=== PATIENT | female | born 1970 | race Caucasian/White ===

== ENCOUNTER 2022-03-22 11:29 | Emergency (ER) | payer OTHER, SELFPAY ==
--- NOTE | ~2022-03-22 | XR_ITS ---
XR chest 2V 03/22/2022 12:07 Indication: Fever and cough Procedure: 2 view chest Comparison: 01/16/2013 Findings: Heart size normal. There is blunting of the right lateral costophrenic recess which may rep resent pleural thickening or small effusion. No focal air space disease, pulmonary edema, or suspecte d pneumothorax. There is a laparoscopic adjustable gastric band. Impression: 1: No acute cardiopulmonary disease. 2: Blunting right lateral costophrenic recess which may represent pleural thickening or less likely s mall effusion. Reviewed, dictated and finalized at location A. Impression: 1: No acute cardiopulmonary disease. 2: Blunting right lateral costophrenic recess which may represent pleural thick ening or less likely small effusion.
[2022-03-22 11:41] VITALS: BP 116/84; PULSE 90; RESP 24; TEMP 36.1; O2SAT 97
--- NOTE | 2022-03-22 11:51 | ED.URI ---
HPI - URI/Sore Throat General Chief Complaint: Upper Respiratory Infection Stated Complaint: cough,shortness of breath,fever Time Seen by Provider: 03/22/22 11:51 Source: patient and RN notes reviewed Mode of arrival: ambulatory Limitations: no limitations History of Present Illness HPI Narrative: 51-year-old female presented for complaint of cough and difficulty breathing for 4 days. She states she has minimal sinus pressure and congestion, at the onset she had subjective fever. She is not boosted for COVID. She denies sick contacts. She has taken NyQuil as needed for symptoms. MD elicited complaint: cough Related Data Home Medications Medication Instructions Recorded Confirmed pantoprazole 40 mg tablet,delayed 40 tablet PO DAILY 03/22/22 03/22/22 release paroxetine HCl 20 mg tablet 20 tablet PO DAILY 03/22/22 03/22/22 Allergies Allergy/AdvReac Type Severity Reaction Status Date / Time codeine AdvReac Nausea and Verified 03/22/22 11:44 Vomiting Review of Systems Review of Systems: CONSTITUTIONAL:Denies malaise, chills, sweats, fever EYES: Denies visual changes, redness, or discharge ENT: Denies sinus pain, otalgia, sore throat CARDIOVASCULAR: Denies chest pain, palpitations, edema RESPIRATORY: Reports cough dyspnea GASTROINTESTINAL: Denies abdominal pain, nausea, vomiting, diarrhea NEUROLOGIC: Denies headache Exam Narrative: GENERAL: Ill-appearing, nontoxic HEAD: Normocephalic EYES: conjunctivae clear ENT: Mucous membranes moist. TM pearly martini with dull light reflex bilaterally; no tragal tenderness. Oropharynx erythematous without lesions or exudate, no drooling, no hoarseness, no trismus, uvula midline. NECK: Supple. No lymphadenopathy CHEST: Clear to auscultation, breath sounds equal. No wheezing, rhonchi, rales, or stridor. No respiratory distress, speaks in full sentences. HEART: Regular rate and rhythm. No murmur heard. SKIN: Warm, dry, no rash. NEURO: Alert and oriented x3. PSYCH: Normal mood and affect Course Course Emergency Course: Patient is aware of diagnosis, understands and agrees to treatment plan. Anticipatory guidance given. Patient agrees to follow-up as directed and is aware of reasons to seek care at the emergency department. Portions of this record may have been created with voice recognition software Level of Care: Express Care Visit Vital Signs Vital signs: Vital Signs Temperature 97 F L 03/22/22 11:41 Pulse Rate 90 03/22/22 11:41 Respiratory Rate 24 H 03/22/22 11:41 Blood Pressure 116/84 03/22/22 11:41 Pulse Oximetry 97 03/22/22 11:41 Temperature 97 F L 03/22/22 11:41 Pulse Rate 90 03/22/22 11:41 Respiratory Rate 24 H 03/22/22 11:41 Blood Pressure 116/84 03/22/22 11:41 Pulse Oximetry 97 03/22/22 11:41 reviewed MDM - URI/Sore Throat MDM Narrative Medical decision making narrative: Xray reviewed with pt, advised on meds and supportive treatment. She is instructed to f/u with pcp. v/u. Differential Diagnosis Differential diagnosis: Likely upper respiratory infection, sinusitis and viral infection Imaging Data Radiologist's impression: Ordering Physician: Christelle Brandt APRN Date of Service: 03/22/22 Procedure(s): XR chest 2V Accession Number(s): [id number] cc: Christelle Brandt APRN; UNKNOWN,DOCTOR~ XR chest 2V 03/22/2022 12:07 Indication: Fever and cough Procedure: 2 view chest Comparison: 01/16/2013 Findings: Heart size normal. There is blunting of the right lateral costophrenic recess which may represent pleural thickening or small effusion. No focal air space disease, pulmonary edema, or suspected pneumothorax. There is a laparoscopic adjustable gastric band. Impression: 1: No acute cardiopulmonary disease. 2: Blunting right lateral costophrenic recess which may represent pleural thickening or less likely small effusion. Discharge Plan Discharge Clinical Impression: Bronchitis Pat
[2022-03-22 12:38] VITALS: BP 116/84
== END 2022-03-22 12:48 | disposition home or self-care (01) ==
PROVIDERS: Emergency Provider Nurse Practitioner Family
DX: J40 Bronchitis, not specified as acute or chronic (principal); Z20.822 Contact with and (suspected) exposure to COVID-19
CPT/HCPCS: 71046; 87426; 99203; C9803; G0463

== ENCOUNTER 2024-08-17 19:34 | Emergency (ER) | payer OTHER, SELFPAY ==
--- NOTE | ~2024-08-17 | XR_ITS ---
XR knee RT min 4V Ordering provider: Norma Juarez APRN History: . sudden onset L knee pain . Comparison: None. FINDINGS: BONES: No acute fracture or dislocation. JOINT SPACES: Normal. SOFT TISSUES: Normal. IMPRESSION: No acute osseous abnormality right knee. Reviewed, dictated and finalized at location A.
[2024-08-17 19:47] VITALS: BP 162/94; PULSE 68; RESP 14; TEMP 36.4; O2SAT 99
--- NOTE | 2024-08-17 20:07 | ED.LOWEXIN ---
HPI - Extremity Injury (Lower) General Chief Complaint: Extremity Injury, Lower Stated Complaint: R knee pain Time Seen by Provider: 08/17/24 20:00 Focused HPI: Patient is a 54-year-old female who presents to the ER with acute onset left knee pain. She reports no recent injury. Patient has a history right knee pain, but has never had problems with her L one. The left knee pain has caused her to develop a significantly limp. Patient denies any history of osteoarthritis in the joint. She reports she has been taking Tylenol at home to help control the pain. Patient denies calf pain, one-sided lower extremity swelling, or shortness of breath. GENERAL: Well-appearing, well-nourished, and in no acute distress. HEAD: Normocephalic, atraumatic. CHEST: Clear to auscultation. ?No respiratory distress. HEART: Regular rate and rhythm.? NEURO: ?Alert and oriented x3. Patient screened in triage and initial orders placed.? ?Additional care and disposition to be based upon?diagnostic testing and treatment. Related Data Allergies Allergy/AdvReac Type Severity Reaction Status Date / Time Sulfa (Sulfonamide AdvReac Unknown Unknown Verified 08/18/24 14:48 Antibiotics) codeine AdvReac Nausea and Verified 08/18/24 14:48 Vomiting PMFSH Surgical History Surgical History History of x3 Hx of laparoscopic gastric banding (~2009) Family History Family History Father Diabetes mellitus CAD (coronary artery disease) Mother Hypertension Bladder cancer Social History Social History Smoking status: Former smoker Tobacco type: cigarettes Alcohol intake: never Substance use: never Course Vital Signs Vital signs: Vital Signs Temperature 36.4 C 08/17/24 19:47 Pulse Rate 68 08/17/24 19:47 Respiratory Rate 14 08/17/24 19:47 Blood Pressure 162/94 H 08/17/24 19:47 Pulse Oximetry 99 08/17/24 19:47 Oxygen Delivery Room Air 08/17/24 19:47 Temperature 36.4 C 08/17/24 19:47 Pulse Rate 68 10/28/24 19:47 Respiratory Rate 14 08/17/24 19:47 Blood Pressure 162/94 H 08/17/24 19:47 Pulse Oximetry 99 08/17/24 19:47 Oxygen Delivery Room Air 08/17/24 19:47 Discharge Plan Discharge Clinical Impression: Acute pain of right knee Patient Disposition: Home, Self-Care Condition: Stable Instructions: Antibiotic Form, Knee Pain (ED) Prescriptions: New meloxicam 15 mg tablet 15 mg PO DAILY Qty: 14 0RF No Action pantoprazole 40 mg tablet,delayed release (DR/EC) See Rx Instructions .ROUTE .COMPLEX Qty: 30 1RF Dose Instruction: Take 1 tablet by mouth once daily Rx Instructions: Take 1 tablet by mouth once daily bupropion HCl 150 mg tablet extended release 24 hr 150 mg PO QAM Qty: 30 6RF paroxetine HCl 20 mg tablet 20 mg PO DAILY Qty: 90 0RF lisinopril 20 mg tablet 20 mg PO DAILY Qty: 90 0RF Follow-up/Referrals: Faisal Garcia MD [Primary Care Provider] - Time of Disposition: 22:10
--- NOTE | 2024-08-17 22:07 | ED.GENADULT ---
HPI - General Adult General Chief complaint: Extremity Injury, Lower Stated complaint: R knee pain Time Seen by Provider: 08/17/24 20:00 History of Present Illness HPI narrative: Patient 54-year-old female who presents emergency department with chief complaint of right-sided knee pain. Patient reports that since Saturday she has been having pain in the right knee the patient reports that it hurts whenever he tries to ambulate reports no trauma reports no redness states he may have some slight swelling to the knee the patient reports no prior injury to the neck Related Data Home Medications Medication Instructions Recorded Confirmed semaglutide (weight loss) 0.25 0.25 mg subcut WEEKLY 12/27/22 12/27/22 mg/0.5 mL subcutaneous pen injector (Ecato) Allergies Allergy/AdvReac Type Severity Reaction Status Date / Time Sulfa (Sulfonamide AdvReac Unknown Unknown Verified 08/17/24 19:34 Antibiotics) codeine AdvReac Nausea and Verified 08/17/24 19:34 Vomiting Review of Systems Review of Systems: A 10 system review of systems was completed on the patient and is negative except for what is stated in the HPI. Nursing and ancillary documentation was reviewed. [facility] Surgical History Surgical History History of x3 Hx of laparoscopic gastric banding (~2009) Family History Family History Father Diabetes mellitus CAD (coronary artery disease) Mother Hypertension Bladder cancer Social History Social History Smoking status: Former smoker Tobacco type: cigarettes Alcohol intake: never Substance use: never Exam Narrative: GENERAL: Well-appearing, well-nourished, and in no acute distress. HEAD: Normocephalic, atraumatic. EYES: PERRLA and EOMI. ENT: Nares clear, no rhinorrhea or epistaxis. Mucous membranes moist. NECK: Supple. CHEST: Clear to auscultation. No respiratory distress. HEART: Regular rate and rhythm. No murmur heard. Normal peripheral pulses. ABDOMEN: Soft, nontender, nondistended, normal active bowel sounds. EXTREMITIES: Normal range of motion mild tenderness to palpation right knee no redness no effusion no deformity. No edema. SKIN: Warm, dry, no rash. NEURO: No focal deficits. Alert and oriented x3. PSYCH: Normal mood and affect. Course Vital Signs Vital signs: Vital Signs Temperature 36.4 C 08/17/24 19:47 Pulse Rate 68 08/17/24 19:47 Respiratory Rate 14 08/17/24 19:47 Blood Pressure 162/94 H 08/17/24 19:47 Pulse Oximetry 99 08/17/24 19:47 Oxygen Delivery Room Air 08/17/24 19:47 Temperature 36.4 C 08/17/24 19:47 Pulse Rate 68 08/17/24 19:47 Respiratory Rate 14 08/17/24 19:47 Blood Pressure 162/94 H 08/17/24 19:47 Pulse Oximetry 99 08/17/24 19:47 Oxygen Delivery Room Air 08/17/24 19:47 Medical Decision Making MDM Narrative Medical decision making narrative: Differential diagnosis includes fracture, effusion, internal derangement Plain film x-rays of the right knee showed no abnormality The patient will be placed in an Dandre wrap and will be discharged follow-up with her primary care provider and started on anti-inflammatory. Vital Signs Vital Signs: Vital Signs Temperature 36.4 C 08/17/24 19:47 Pulse Rate 68 08/17/24 19:47 Respiratory Rate 14 08/17/24 19:47 Blood Pressure 162/94 H 08/17/24 19:47 Pulse Oximetry 99 08/17/24 19:47 Oxygen Delivery Room Air 08/17/24 19:47 Temperature 36.4 C 08/17/24 19:47 Pulse Rate 68 08/17/24 19:47 Respiratory Rate 14 08/17/24 19:47 Blood Pressure 162/94 H 08/17/24 19:47 Pulse Oximetry 99 08/17/24 19:47 Oxygen Delivery Room Air 08/17/24 19:47 Discharge Plan Discharge Clinical Impression: Acute pain of right knee Patient Disposition: Home, Self-Care Condition: Stable Instructions: Antibiotic Form, Knee Pain (ED) Prescriptions: New meloxicam 15 mg tablet 15 mg PO DAILY Qty: 14 0RF No Action benzonatate 200 mg capsule 200 mg PO TID PRN (Reason: cough) Qty: 20 0RF albuterol sulfate 90 mcg/actuation HFA aerosol inhaler 1 inh inhalation QID PRN (Reason: shortness of breath or wheezing) Qty: 8.5 0RF Wegovy 0.25 mg/0.5 mL pen injector 0.25 mg subcut WEEKLY Rx Instructions: administer weeks 1 through 4 of therapy bupropion HCl 150 mg tablet extended release 24 hr 150 mg PO QAM Qty: 30 6RF paroxetine HCl 20 mg tablet 20 mg PO DAILY Qty: 90 0RF pantoprazole 40 mg tablet,delayed release (DR/EC) See Rx Instructions .ROUTE .COMPLEX Qty: 40 0RF Dose Instruction: Take 1 tablet by mouth once daily Rx Instructions: Take 1 tablet by mouth once daily lisinopril 20 mg tablet 20 mg PO DAILY Qty: 90 0RF Follow-up/Referrals: Faisal Garcia MD [Primary Care Provider] - Time of Disposition: 22:10
== END 2024-08-17 22:30 | disposition home or self-care (01) ==
LOC: ANHED 22:09
PROVIDERS: Emergency Provider Emergency Medicine; PCP Family Medicine Adolescent Medicine
DX: M25.561 Pain in right knee (principal)
CPT/HCPCS: 73564; 99283

== ENCOUNTER 2024-12-14 18:33 | Emergency (ER) | payer OTHER, SELFPAY ==
[2024-12-14 19:06] VITALS: BP 124/74; PULSE 70; RESP 16; TEMP 36.4; O2SAT 100
--- OUTSIDE RECORDS SUMMARY | 2024-12-14 19:12 | XMS_ITS | Encounter Summary ---
Author Organization [facility] Address [address] [place] [address] Care Team Providers Care Communications Specialist Name Role Phone Camille Narvaez MD Unavailable [phone] Johnna Abbott MD Primary Care Provider Garret Curry MD Unavailable [phone] Jm Shafer MD Unavailable [phone] Reason for Visit * Reason Onset Date Comments Pre Authorization 11/30/2024 Katlyn hhr w/tramaine is gasatroplasty Encounter Details Date Type Department Care Team (Late st Contact Info) Description 11/30/2024 Telephone [facility] [id number] [place] [id number] [place] [id number] [address] Pre Authorization (Katlyn jerezr w/lynda gasatroplasty) Social History Tobacco Use Types Packs/Day Years Used Date Smoking Tobacco: Former Cigarettes Q uit: 08/1994 Passive Smoke Exposure: Current Smokeless Tobacco: Never Alcohol Use Standard Drinks/Week Comments Not Currently 0 (1 standard drink = 0.6 oz pur e alcohol) AUDIT-C Answer Date Recorded Q1: How often do you have a drink containing alcohol? Never 01/21/2024 Q2: How many drinks containi ng alcohol do you have on a typical day when you are drinking? Patient does not drink Q3: How often do you have si x or more drinks on one occasion? Never 01/21/2024 Overall Financial Resource Strain (CARDIA) Answe r Date Recorded How hard is it for you to pa y for the very basics like food, housing, medical care, and heating? Not hard at all 01/21/2024 PHQ-2 Answer Date Recorded Patient Health Questionnaire-2 Score 0 11/04/2024 [facility] [place] [facility] Occupat ional Health - Occupational Stress Questionnaire Answer Date Recorded Do you feel stress - tense, restless, nervous, or anxious, or unable to sleep at night because your mind is troubled all the time - these days? Not at all 01/21/2024 Hunger Vital Sign Answer Date Recorded Within the past 12 months, y ou worried that your food would run out before you got the money to buy more. Never true 01/21/20 24 Within the past 12 months, t he food you bought just didn't last and you didn't have money to get more. Never true 01/21/2024 PRAPARE - Transportation Answer Date Re corded In the past 12 months, has l ack of transportation kept you from medical appointments or from getting medications? No 11/2023 In the past 12 months, has l ack of transportation kept you from meetings, work, or from getting things needed for daily living? No 01/21/2024 Housing Stability Vital Sign Answer Russell e Recorded In the last 12 months, was t here a time when you were not able to pay the mortgage or rent on time? No 01/21/2024 In the last 12 months, how many places have you lived? 1 01/21/2024 In the last 12 months, was t here a time when you did not have a steady place to sleep or slept in a long term (including now)? 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 No 01/21/2024 Is person blind or have serious difficulty seein g? No 01/21/2024 Does person have serious dif ficulty walking/climbing stairs? No 01/21/2024 Does person have difficulty dressing/bathing? No 01/21/2024 Does person have difficulty doing errands alone? No 01/21/2024 Cognitive Status Response Date of Assessm ent Does person have difficulty concentrating/remembering/making decisions? No 01/21/2024 documented as of this encounter Miscellaneous Notes * Telephone Encounter - Delaney Mercado - 12/14/2024 7:04 AM CST Per [facility] online pending auth#[id number] for inpatient [id number] has been approved. Per Epic Chat from Dr. Curry patient is to be on 5 day liquid diet before Laparoscopic repair of hiatal hernia with fundoplication and lynda gastroplasty Sent to RN to schedule. HIATRY INSTRUCTOR * Telephone Encounter - Delaney Mercado - 11/30/2024 9:34 AM CST Dummy Sx Date : 12/31/24 Prior Authorization for [id number] Laparoscopic repair of hiatal hernia with fundoplication and lynda gastroplasty Dx: K44.9 Hiatal Hernia K21.9 Medically refractory GERD K20.80 L A Grade Esophagitis K31.89 Gastric stenosis R13.10 Dysphagia R12 Heartburn K29.70 Gastritis Provider: Dr. Garret Curry Hospital: [facility], Inpatient Insurance Name: [facility] Insurance Group #: [id number] Auth Phone #: [phone] Insurance Rep you spoke to: [facility] Online Pending Auth/Reference #: [id number] Clinicals: Uploaded. Upload confirmation received. HIATRY INSTRUCTOR documented in this encounter Plan of Treatment Upcoming Encounters Date Type Department Care Team (Late st Contact Info) Description 03/04/2025 2:00 PM CDT Documentation [address] [phone] 03/04/2025 2:20 PM CDT Office Visit [address] [phone] [place] [address] [facility] [address] [place] [phone] documented as of this encounter Visit Diagnoses Not on filedocumented in this encounter Care Teams Communications Specialist Relationship Specialty Start Date End Date Johnna Abbott MD [address] [facility] [address] [place] [address] PCP - General Family Medicine 11/20/23 Camille Narvaez MD Room Service Server Gastroenterology 01/03/22 [place] [address] [facility] [address] [place] [address] General Surgery 05/18/24 [place] [address] [facility] [address] [place] [phone] Bonbon Dipper/Oncologist Hematology and Oncology 06/10/24 documented as of this encounter
--- OUTSIDE RECORDS SUMMARY | 2024-12-14 19:12 | XMS_ITS | Patient Health Summary ---
Author Organization [facility] Address [address] [place] [address] Care Team Providers [facility] Name Role Phone Camille Narvaez MD Unavailable [phone] Johnna Abbott MD Primary Care Provider [phone] Garret Curry MD Unavailable Jm Shafer MD Unavailable [phone] Note from [facility],non-owned Affiliates and Associated Physician Practices is amultiple site organization consisting of ambulatory clinics and hospital sitesin [place], [place], [place] and [place]. This disclosure is being madepursuant to the Care Everywhere program and may not contain all information available regarding this patient. Last updated 18.[facility] Allergies * Codeine(Vomiting) Medications * Be aware that medications may not be up to date on this document. Alwaysverify current medications with the patient. * pantoprazole EC (Protonix) 40 MG tablet(Started 01/22/2024) Take 1 (one) tablet by mouth once daily 5 refills by 01/21/2025 * buPROPion XL 24hr (Wellbutrin-XL) 150 MG tablet(Started 05/18/2024) Take 1 (one) tablet by mouth once daily Reasons: Major Depressive Disorder 3 refills by 05/18/2025 * PARoxetine (Paxil) 20 MG tablet(Started 05/18/2024) Take 1 (one) tablet by mouth once daily Reasons: Major Depressive Disorder 3 refills by 05/18/2025 * lisinopril (Prinivil; Zestril) 20 MG tablet(Started 05/18/2024) Take 1 (one) tablet by mouth once daily Reasons: High Blood Pressure Disorder 3 refills by 05/18/2025 * vitamin D, ergocalciferol, (Drisdol) 1.25 MG (29582 UT) capsule(Started 2024) Take 1 (one) capsule by mouth every 7 days Reasons: Vitamin D Deficiency * acetaminophen (Tylenol) 500 MG tablet Take 2 (two) tablets by mouth every 4 hours as needed for Fever or Pain Maximum allowable Acetaminophen amount = 4 Grams (4000 mg) / 24 hours. Active Problems Problem Noted Date Diagnosed Date Hiatal hernia 01/21/2024 Unintentional weight loss 07/30/2023 Gastritis 08/18/2021 Gastroesophageal reflux dise ase with esophagitis without hemorrhage 08/18/2021 Screen for colon cancer 02/02/2021 Dysphagia 02/02/2021 Class 3 severe obesity due t o excess calories with body mass index (BMI) of 40.0 to 44.9 in adult 02/02/2021 Anemia 02/02/2021 Resolved Problems Problem Noted Date Diagnosed Date Resolved Date Hoarseness 07/30/2023 05/16/2024 Loose stools 08/18/2021 05/16/2024 Epigastric pain 02/02/2021 05/16/2024 Diarrhea 02/02/2021 03/02/2021 Suspected COVID-19 virus infection 05/30/2020 05/16/2024 Immunizations * Covid Pfizer primary monovalent 12+ yr 0.3mL Purple cap(Given 01/10/2021, 12/20/2020) * TDAP (7yrs+)(Given 05/18/2024) Social History Tobacco Use Types Packs/Day Years Used Date Smoking Tobacco: Former Cigarettes Q uit: 08/1994 Passive Smoke Exposure: Current Smokeless Tobacco: Never Tobacco Cessation:Counseling Given: Not Answered Alcohol Use Standard Drinks/Week Comments Not Currently [...] Recorded Patient Health Questionnaire-2 Score 0 11/04/2024 [facility] - Occupational Stress [...] place to sleep or slept in a fdc (including now)? No 01/21/2024 Sex and Gender Information Value Date Recorded Sex Assigned at Female 10/08/2024 10:18 AM STRADDLE TRUCK DRIVER Gender Identity Female 10/08/2024 10:18 AM STRADDLE TRUCK DRIVER Sexual Orientation Not on file Last Filed Vital Signs Vital Sign Reading Time Taken Comments Blood Pressure 128/80 11/18/2024 10:06 AM STRADDLE TRUCK DRIVER Pulse 67 11/18/2024 10:06 AM STRADDLE TRUCK DRIVER Temperature 36.4 C (97.5 F) 11/18/2024 10:06 AM STRADDLE TRUCK DRIVER Respiratory Rate 18 11/04/2024 9:53 AM STRADDLE TRUCK DRIVER Oxygen Saturation 100% 11/18/2024 10:06 AM STRADDLE TRUCK DRIVER Inhaled Oxygen Concentration - - Weight 93.9 kg (207 lb) 11/18/2024 10:06 AM STRADDLE TRUCK DRIVER Height 152.4 cm (5') 11/04/2024 9:53 AM STRADDLE TRUCK DRIVER Body Mass Index 40.43 11/04/2024 9:53 AM STRADDLE TRUCK DRIVER Procedures * PAP IG LB +HPV APTIMA REFLEX 16,18/45(Performed 11/18/2024) Performed for Well woman exam * CBC W AUTO DIFFERENTIAL (CANCER CARE)(Performed 11/04/2024) Performed for Anemia, unspecified type * IRON + TRANSFERRIN PANEL(Performed 11/04/2024) Performed for Anemia, unspecified type * VITAMIN B12 FOLATE PANEL(Performed 11/04/2024) Performed for Anemia, unspecified type * FERRITIN(Performed 11/04/2024) Performed for Anemia, unspecified type * XR KNEE RIGHT 4VW OR MORE(Performed 09/10/2024) Performed for Acute pain of right knee * HELICOBACTER PYLORI UREASE (STL)(Performed 06/26/2024) Performed for Esophagitis, Hiatal hernia * DC ED EGD FLEX TRANSORAL DX(Performed 06/26/2024) * EGD(Performed 06/26/2024) Performed for Gastroesophageal reflux disease with esophagitis without hemorrhage, Hiatal hernia * CBC W AUTO DIFFERENTIAL (CANCER CARE)(Performed 06/10/2024) Performed for Anemia, unspecified type * COMPREHENSIVE METABOLIC PANEL(Performed 06/10/2024) Performed for Anemia, unspecified type * IRON + TRANSFERRIN PANEL(Performed 06/10/2024) Performed for Anemia, unspecified type * FERRITIN(Performed 06/10/2024) Performed for Anemia, unspecified type * VITAMIN B12 FOLATE PANEL(Performed 06/10/2024) Performed for Anemia, unspecified type * PROTEIN ELECTRO+JOVITA+FREE LIGHT CHAINS(Performed 06/10/2024) Performed for Anemia, unspecified type * LDH BLOOD(Performed 06/10/2024) Performed for Anemia, unspecified type * RETIC COUNT(Performed 06/10/2024) Performed for Anemia, unspecified type * HAPTOGLOBIN(Performed 06/10/2024) Performed for Anemia, unspecified type * FL UGI W AIR CONTRAST(Performed 04/27/2024) Performed for Esophageal dysmotility, H/O laparoscopic adjustable gastric banding * CBC W/O DIFFERENTIAL(Performed 01/22/2024) Performed for Bariatric surgery status * FL UGI SERIES(Performed 01/22/2024) Performed for Hiatal hernia * VITAMIN D 25-HYDROXY(Performed 01/22/2024) Performed for Hiatal hernia * CBC W AUTO DIFFERENTIAL(Performed 01/22/2024) Performed for Hiatal hernia * BASIC METABOLIC PANEL (CALCIUM TOTAL)(Performed 01/22/2024) Performed for Hiatal hernia * GLUCOSE - POINT OF CARE(Performed 01/21/2024) * GLUCOSE - POINT OF CARE(Performed 01/21/2024) * GLUCOSE - POINT OF CARE(Performed 01/21/2024) * ENDOTRACHEAL TUBE NOTE(Performed 01/21/2024) * DC LAP RMVL GASTR ADJ ALL PARTS(Performed 01/21/2024) * EKG 12-LEAD(Performed 01/21/2024) Performed for Pre-op examination * PATHOLOGY TISSUE EXAM (STL)(Performed 11/18/2023) Performed for Diagnosis deferred * DC ED EGD FLEX TRANSORAL DX(Performed 11/18/2023) * EGD(Performed 11/18/2023) Performed for Dysphagia, unspecified type, Gastroesophageal reflux disease with esophagitis withouthemorrhage * VITAMIN D 25-HYDROXY(Performed 06/27/2023) Performed for Encounter for vitamin deficiency screening * LIPID PROFILE REFLEX LDL DIRECT(Performed 06/27/2023) Performed for Screening cholesterol level * VITAMIN B12(Performed 06/27/2023) Performed for Encounter for vitamin deficiency screening * IRON + TIBC + FERRITIN(Performed 06/27/2023) Performed for Anemia, unspecified type * COMPREHENSIVE METABOLIC PANEL(Performed 06/27/2023) Performed for History of esophagitis, Screening for diabetes mellitus * CBC W AUTO DIFFERENTIAL(Performed 06/27/2023) Performed for Dizzy spells * XR CHEST 2VW(Performed 06/26/2023) Performed for COLIN (dyspnea on exertion) * PATHOLOGY TISSUE EXAM (STL)(Performed 12/01/2021) Performed for Diagnosis deferred * DC ED EGD FLEX TRANSORAL DX(Performed 12/01/2021) * EGD(Performed 12/01/2021) * XR CHEST 2VW(Performed 06/09/2021) Performed for SOB (shortness of breath) * SARS-COV-2 PCR 2 DAY TAT(Performed 06/09/2021) Performed for SOB (shortness of breath) * COVID-19 SARS-COV-2 PCR QUAL ([facility])(Performed 06/09/2021) Performed for SOB (shortness of breath) * CALPROTECTIN FECAL(Performed 02/15/2021) * O+P RST RFLXED(Performed 02/15/2021) * C DIFFICILE GDH AG + TOXIN A+B(Performed 02/15/2021) * O+P PANEL(Performed 02/15/2021) * CULTURE STOOL+ E COLI SHIGA-LIKE TOXIN(Performed 02/15/2021) * PATHOLOGY TISSUE EXAM (STL)(Performed 02/15/2021) Performed for Diagnosis unknown * HELICOBACTER PYLORI UREASE (STL)(Performed 02/15/2021) Performed for Diagnosis unknown * COLONOSCOPY SCREEN(Performed 02/15/2021) * DC ED EGD FLEX TRANSORAL DX(Performed 02/15/2021) * EGD(Performed 02/15/2021) * ENDOSCOPY, COLON, SCREENING(Performed 02/15/2021) * VITAMIN D 25-HYDROXY(Performed 01/31/2021) Performed for Screening for osteoporosis * TSH REFLEX FREE T4(Performed 01/31/2021) Performed for Screening for thyroid disorder * CBC W AUTO DIFFERENTIAL(Performed 01/31/2021) Performed for Gastroesophageal reflux disease with esophagitis and hemorrhage, History of bariatricsurgery, History of hemoptysis, History of anemia * VITAMIN B12(Performed 01/31/2021) Performed for History of bariatric surgery * LIPID PROFILE(Performed 01/31/2021) Performed for Screening for cholesterol level * IRON + TIBC PANEL(Performed 01/31/2021) Performed for History of anemia * B-TYPE NATRIURETIC PEPTIDE(Performed 01/31/2021) Performed for Elevated brain natriuretic peptide (BNP) level * COMPREHENSIVE METABOLIC PANEL(Performed 01/31/2021) Performed for History of elevated glucose * CARDIAC RHYTHM STRIP ORDER(Performed 06/07/2020) * URINALYSIS REFLEX MICROSCOPIC REFLEX CULTURE(Performed 05/30/2020) * PROCALCITONIN LEVEL(Performed 05/30/2020) * FERRITIN(Performed 05/30/2020) * LDH BLOOD(Performed 05/30/2020) * C-REACTIVE PROTEIN(Performed 05/30/2020) * TROPONIN I(Performed 05/30/2020) * B-TYPE NATRIURETIC PEPTIDE(Performed 05/30/2020) * COMPREHENSIVE METABOLIC PANEL(Performed 05/30/2020) * CBC W AUTO DIFFERENTIAL(Performed 05/30/2020) * SARS-COV-2 (COVID-19) IN HOUSE(Performed 05/30/2020) * LACTIC ACID BLOOD(Performed 05/30/2020) * CULTURE BLOOD(Performed 05/30/2020) * CULTURE BLOOD(Performed 05/30/2020) * XR CHEST 1VW PORTABLE(Performed 05/30/2020) Performed for Shortness of breath * EKG 12-LEAD(Performed 05/30/2020) Performed for Shortness of breath * SKIN TEST PPD - POINT OF CARE(Performed 08/13/2019) Performed for Encounter for PPD skin test reading Results * PAP IG LB +HPV APTIMA REFLEX 16,18/45 (11/18/2024 10:44 AM STRADDLE TRUCK DRIVER) Diagnosis Comment [facility] ACCOUNT BILL Comment:NEGATIVE FOR INTRAEP ITHELIAL LESION OR MALIGNANCY. Specimen Adequacy Comment [facility] ACCOUNT BILL Comment: Satisfactory for evaluation. Endocervical and/or squamous metaplastic cells (endocervical component) are present. Clinician Provided ICD10 Comment [facility] ACCOUNT BILL Comment:Z01.419 Performed by Comment [facility] ACCOUNT BILL Comment:Guilherme Cheng totechnologist (ASCP) Comment . [facility] ACCOUNT BILL Note Comment [facility] ACCOUNT BILL Comment: The Pap smear is a screening test designed to aid in the detection of premalignant and malignant conditions of the uterine cervix. It is not a diagnostic procedure and should not be used as the sole means of detecting cervical cancer. Both false-positive and false-negative reports do occur. IGLBP CPT Code Automation Comment [facility] ACCOUNT BILL Comment: This liquid based ThinPrep(R) pap test was screened with the use of an image guided system. Human papillomavirus Aptima Negative Negative [facility] ACCOUNT BILL Comment: This nucleic acid amplification test detects fourteen high-risk HPV types (16,18,31,33,35,39,45,51,52,56,58,59,66,68) without differentiation. HPV Genotype Reflexed Comment [facility] ACCOUNT BILL Comment:Criteria not met, HP V Genotype not performed. ENTIRE ENDOCERVIX / Unknown 11/18/2024 10:44 AM STRADDLE TRUCK DRIVER 11/18/2024 Comment:Endocrvx Release to p Narrative [facility] ACCOUNT BILL - 11/22/2024 1:06 PM STRADDLE TRUCK DRIVER [facility]formed at[facility] [address] [place] [id number] Fourth Grade Teacher: Fortino Fernandez MD, Phone: [phone] Performed at: - [address] [id number] Fourth Grade Teacher: Mitzi Fung MD, Phone: [phone] Performed at: - [address] [id number] Fourth Grade Teacher: Mitzi Fung MD, Phone: [phone] Specimen Comment: [id number] Specimen Comment: Source.............Endocervix Specimen Comment: Other..............Post Menopausal Specimen Comment: No. of containers..01 ThinPrep Vial Gissel Higuera PA-C LAB - PATHOLOGY/CYTO LOGY ORDERABLES [facility] ACCOUNT BILL [address] [place] [address] * (ABNORMAL) CBC W AUTO DIFFERENTIAL (CANCER CARE) (11/04/2024 9:46 AM STRADDLE TRUCK DRIVER) Only the most recent of2 resultswithin the time period is included. WBC 5.6 4.4 - 10.7 x10E9/L 11/04/2024 9:52 AM STRADDLE TRUCK DRIVER [facility] Neutrophils % 61.3 44.0 - 73.0 % 11/04/2024 9:52 AM STRADDLE TRUCK DRIVER [facility] Lymphocytes % 26.6 20.0 - 43.0 % 11/04/2024 9:52 AM STRADDLE TRUCK DRIVER [facility] Monocytes % 8.7 5.0 - 13.0 % 11/04/2024 9:52 AM STRADDLE TRUCK DRIVER [facility] Eosinophils % 2.9 0.0 - 6.0 % 11/04/2024 9:52 AM STRADDLE TRUCK DRIVER [facility] Basophils % 0.5 0.0 - 2.0 % 11/04/2024 9:52 AM STRADDLE TRUCK DRIVER [facility] Neutrophil Absolute 3.44 2.01 - 7.14 x10E9/L 11/04/2024 9:52 AM STRADDLE TRUCK DRIVER [facility] Lymphocytes Absolute 1.49 1.07 - 3.94 x10E9/L 11/04/2024 9:52 AM STRADDLE TRUCK DRIVER [facility] Monocytes Absolute 0.49 0.26 - 1.07 x10E9/L 11/04/2024 9:52 AM STRADDLE TRUCK DRIVER [facility] Eosinophils Absolute 0.16 0 - 0.47 x10E9/L 11/04/2024 9:52 AM STRADDLE TRUCK DRIVER [facility] Basophils Absolute 0.03 0 - 0.08 x10E9/L 11/04/2024 9:52 AM STRADDLE TRUCK DRIVER [facility] RBC 3.64(L) 3.80 - 5.20 x10E12/L 11/04/2024 9:52 AM STRADDLE TRUCK DRIVER [facility] Hemoglobin 11.1(L) 12.0 - 15.6 gm/dL 11/04/2024 9:52 AM STRADDLE TRUCK DRIVER [facility] Hematocrit 35.5(L) 35.9 - 45.5 % 11/04/2024 9:52 AM STRADDLE TRUCK DRIVER [facility] MCV 97.5 80.7 - 98.3 fl 11/04/2024 9:52 AM STRADDLE TRUCK DRIVER [facility] MCH 30.5 26.7 - 34.0 pg 11/04/2024 9:52 AM STRADDLE TRUCK DRIVER [facility] MCHC 31.3 30.8 - 35.9 gm/dL 11/04/2024 9:52 AM STRADDLE TRUCK DRIVER [facility] RDW-CV 14.1 12.1 - 14.9 % 11/04/2024 9:52 AM STRADDLE TRUCK DRIVER [facility] Platelet Count 235 153 - 416 x10E9/L 11/04/2024 9:52 AM STRADDLE TRUCK DRIVER [facility] MPV 10.8 9.4 - 12.9 fl 11/04/2024 9:52 AM STRADDLE TRUCK DRIVER [facility] Blood BLOOD SPECIMEN / Unknown 11/04/2024 9:46 AM STRADDLE TRUCK DRIVER 11/04/2024 9:46 AM STRADDLE TRUCK DRIVER Jm Shafer MD LAB - HEMATOLOGY ORD ERABLES [facility] [id number] [address] * (ABNORMAL) VITAMIN B12 FOLATE PANEL (11/04/2024 9:46 AM STRADDLE TRUCK DRIVER) Only the most recent of2 resultswithin the time period is included. Vitamin B12 >2000(H) 213 - 816 pg/mL [facility] ACCOUNT BILL Folate 14.7 7.0 - 31.4 ng/mL [facility] ACCOUNT BILL Blood BLOOD SPECIMEN / Unknown 11/04/2024 9:46 AM STRADDLE TRUCK DRIVER 11/04/2024 Comment:Blood Release to pat i Narrative [facility] ACCOUNT BILL - 11/04/2024 6:07 PM STRADDLE TRUCK DRIVER Performed at: 01 - [facility] [address] [place], [place] [id number] Fourth Grade Teacher: Lele Hartman [facility], Phone: [phone] Jm Shafer MD LAB - CHEMISTRY ORDE MAR [facility] ACCOUNT BILL [address] [place] [address] * IRON + TRANSFERRIN PANEL (11/04/2024 9:46 AM STRADDLE TRUCK DRIVER) Only the most recent of2 resultswithin the time period is included. Iron 117 40 - 150 ug/dL [facility] ACCOUNT BILL Transferrin 308 174 - 382 mg/dL [facility] ACCOUNT BILL Comment: TIBC CALCULATED BLOOD ([facility]) 385 ug/dL 240-450 SATURATION % BLOOD ([facility]) 30 % 20-50 Blood BLOOD SPECIMEN / Unknown 11/04/2024 9:46 AM STRADDLE TRUCK DRIVER 11/04/2024 Comment:Blood Release to pat i Narrative [facility] ACCOUNT BILL - 11/04/2024 6:07 PM STRADDLE TRUCK DRIVER Performed at: [address] [place], [place] [id number] [place] [id number] Fourth Grade Teacher: Lele Hartman [facility], Phone: [phone] Jm Shafer MD LAB - CHEMISTRY FELISHA MANUEL Performing Organization Address [facility] Co de Phone Number [facility] ACCOUNT BILL [address] [place] [address] * FERRITIN (11/04/2024 9:46 AM STRADDLE TRUCK DRIVER) Only the most recent of3 resultswithin the time period is included. Ferritin 132 5 - 204 ng/mL [facility] ACCOUNT BILL Blood BLOOD SPECIMEN / Unknown 11/04/2024 9:46 AM STRADDLE TRUCK DRIVER 11/04/2024 Comment:Blood Release to pat i Narrative [facility] ACCOUNT BILL - 11/04/2024 6:07 PM STRADDLE TRUCK DRIVER Performed at: [address] [place] [address] [place] [id number] Fourth Grade Teacher: Lele Hartman [facility], Phone: [phone] Jm Shafer MD LAB - CHEMISTRY FELISHA MANUEL Performing Organization Address [facility] Co de Phone Number [facility] ACCOUNT BILL [address] [place] [address] * XR Knee Right 4Vw or More (09/10/2024 8:56 AM STRADDLE TRUCK DRIVER) Narrative [facility] - 09/10/2024 8:57 AM STRADDLE TRUCK DRIVER For details of this study, please see the providers note. Win Gallo DO DIAGNOSTIC IMAGING O RDERABLES Performing Organization Address City/[facility] Co de Phone Number [facility] * HELICOBACTER PYLORI UREASE (STL) (06/26/2024 9:08 AM CDT) Only the most recent of2 resultswithin the time period is included. Helicobacter pylori Urease Initial Negative Negative 06/27/2024 9:12 AM CDT [facility] Helicobacter pylori Urease Final Negative Negative 06/27/2024 9:12 AM CDT [facility] Microbiology GASTRIC ANTRAL BIOPSY SPECIMEN / Unknown 06/26/2024 9:08 AM CDT 06/26/2024 12:38 PM CDT Garret Curry MD LAB - MICROBIOLOGY O RDERABLES [facility] [address] [place] [address] * EGD (06/26/2024 8:04 AM CDT) Report Endoscopy POC _ Patient Name: Carla Wen Procedure Date: 06/26/2024 8:04 AM Date of : 1970 Admit Type: Outpatient Age: 53 Gender: Female Attending MD: Garret Curry MD, _ Procedure: Upper GI endoscopy Indications: Dysphagia, Heartburn Providers: Garret Curry MD (Doctor) Referring MD: Johnna Abbott MD (Referring MD) Medicines: Propofol per Anesthesia Complications: No immediate complications. _ Estimated Blood Loss: Estimated blood loss: none. Procedure: Pre-Anesthesia Assessment: - Prior to the procedure, a History and Physical was performed, and patient medications and allergies were reviewed. The patient's tolerance of previous anesthesia was also reviewed. The risks and benefits of the procedure and the sedation options and risks were discussed with the patient. All questions were answered, and informed consent was obtained. Prior Anticoagulants: The patient has taken no anticoagulant or antiplatelet agents. ASA Grade Assessment: II - A patient with mild systemic disease. After reviewing the risks and benefits, the patient was deemed in satisfactory condition to undergo the procedure. After obtaining informed consent, the endoscope was passed under direct vision. Throughout the procedure, the patient's blood pressure, pulse, and oxygen saturations were monitored continuously. The Endoscope was introduced through the mouth, and advanced to the second part of duodenum. The upper GI endoscopy was accomplished without difficulty. The patient tolerated the procedure well. Findings: LA Grade C (one or more mucosal breaks continuous between tops of 2 or more mucosal folds, less than 75% circumference) esophagitis with no bleeding was found 37 cm from the incisors. A medium-sized type-III paraesophageal hernia was found. Scattered mild inflammation characterized by erosions and erythema was found in the gastric antrum. Biopsies were taken with a cold forceps for Helicobacter pylori testing using CLOtest. The duodenal bulb, first portion of the duodenum and second portion of the duodenum were normal. _ Impression: - LA Grade C reflux esophagitis with no bleeding. - Medium-sized type-III paraesophageal hernia. - Gastritis. Biopsied. - Normal duodenal bulb, first portion of the duodenum and second portion of the duodenum. Recommendation: - Await pathology results. - Discharge patient to home. - Resume previous diet. - Continue present medications. Procedure Code(s): --- Professional --- 35605, Esophagogastroduod enoscopy, flexible, transoral; with biopsy, single or multiple --- Technical --- 55253, Esophagogastroduod enoscopy, flexible, transoral; with biopsy, single or multiple Diagnosis Code(s): --- Professional --- K21.00, Gastro-esophageal reflux disease with esophagitis, without bleeding K44.9, Diaphragmatic hernia without obstruction or gangrene K29.70, Gastritis, unspecified, without bleeding R13.10, Dysphagia, unspecified R12, Heartburn --- Technical --- K21.00, Gastro-esophageal reflux disease with esophagitis, without bleeding K44.9, Diaphragmatic hernia without obstruction or gangrene K29.70, Gastritis, unspecified, without bleeding R13.10, Dysphagia, unspecified R12, Heartburn CPT copyright 2020 [employer]. All rights reserved. The codes documented in this report are preliminary and upon sterilizer operator review may be revised to meet current compliance requirements. _ Garret Curry MD 06/26/2024 9:11:14 AM Number of Addenda: 0 Note Initiated On: 06/26/2024 8:04 AM [facility] 06/26/2024 8:04 AM CDT Narrative Procedure Note Garret Curry MD - 06/26/2024 9:13 AM CDT PLAN: F/u ANA F/u in the office to discuss hiatal hernia repair Garret Curry MD GI PROCEDURE ORDERAB LES [facility] [place] [address] * (ABNORMAL) PROTEIN ELECTRO+JOVITA+FREE LIGHT CHAINS (06/10/2024 11:54 AM CDT) IgG Quantitative 998 586 - 1,602 mg/dL [facility] ACCOUNT BILL IgA Quantitative 162 87 - 352 mg/dL [facility] ACCOUNT BILL IgM Quantitative 142 26 - 217 mg/dL [facility] ACCOUNT BILL Protein Total 6.7 6.4 - 8.3 gm/dL [facility] ACCOUNT BILL Albumin 3.7 2.9 - 4.4 g/dL [facility] ACCOUNT BILL Alpha-1 Globulin 0.2 0.0 - 0.4 g/dL [facility] ACCOUNT BILL Lpnfs-7-Ldsaxlus 0.8 0.4 - 1.0 g/dL [facility] ACCOUNT BILL Beta-Globulin 1.1 0.7 - 1.3 g/dL [facility] ACCOUNT BILL Gamma Globulin 0.9 0.4 - 1.8 g/dL [facility] ACCOUNT BILL M-Remy Not Observed Not Observed g/dL [facility] ACCOUNT BILL Globulin Total 3.0 2.2 - 3.9 g/dL [facility] ACCOUNT BILL Albumin/Globulin Ratio 1.3 0.7 - 1.7 [facility] ACCOUNT BILL Immunofixation Result [facility] ACCOUNT BILL Comment:No monoclonality det ected. Please Note [facility] ACCOUNT BILL Comment: Protein electrophoresis scan will follow via computer, mail, or custodian manager delivery. Free [place] Light Chains 28.5(H) 3.3 - 19.4 mg/L [facility] ACCOUNT BILL Free Lambda Light Chains 27.4(H) 5.7 - 26.3 mg/L [facility] ACCOUNT BILL Big Point/Lambda Ratio 1.04 0.26 - 1.65 [facility] ACCOUNT BILL Blood BLOOD SPECIMEN / Unknown 06/10/2024 11:54 AM CDT 06/10/2024 Narrative Resulting Agency Comment Lab [facility]: [facility] [address] [facility] [id number] Jm Shafer MD LAB - CHEMISTRY FELISHA RABJAKI [facility] ACCOUNT BILL [address] [place] [address] * RETIC COUNT (06/10/2024 11:54 AM CDT) Reticulocyte Count 1.07 0.50 - 2.40 % [facility] ACCOUNT BILL Blood BLOOD SPECIMEN / Unknown 06/10/2024 11:54 AM CDT 06/10/2024 Narrative Resulting Agency Comment Lab Testing performed at: [facility] [place] [address] [place] [id number] Jm Shafer MD LAB - HEMATOLOGY ORD ERABLES [facility] ACCOUNT BILL [address] [place] [address] * (ABNORMAL) COMPREHENSIVE METABOLIC PANEL (06/10/2024 11:54 AM CDT) Only the most recent of4 resultswithin the time period is included. Glucose 88 70 - 105 mg/dL [facility] ACCOUNT BILL BUN 19 7 - 26 mg/dL [facility] ACCOUNT BILL Creatinine 0.89 0.57 - 1.11 mg/dL [facility] ACCOUNT BILL eGFR by CKD-EPI 77(L) >=90 mL/min/1.7 3 m2 [facility] ACCOUNT BILL Sodium 142 136 - 145 mmol/L [facility] ACCOUNT BILL Potassium 5.2(H) 3.5 - 5.1 mmol/L [facility] ACCOUNT BILL Chloride 111(H) 98 - 107 mmol/L [facility] ACCOUNT BILL CO2 23 22 - 29 mmol/L [facility] ACCOUNT BILL Calcium 9.0 8.4 - 10.4 mg/dL [facility] ACCOUNT BILL Albumin 3.7 3.4 - 5.0 gm/dL [facility] ACCOUNT BILL Bilirubin Total 0.6 0.2 - 1.2 mg/dL [facility] ACCOUNT BILL Alkaline Phosphatase 70 40 - 150 U/L [facility] ACCOUNT BILL AST 14 5 - 34 U/L [facility] ACCOUNT BILL ALT 14 0 - 55 U/L [facility] ACCOUNT BILL Blood BLOOD SPECIMEN / Unknown 06/10/2024 11:54 AM CDT 06/10/2024 Narrative Resulting Agency Comment Lab Testing performed at: [facility] [place] [address] [place] [id number] Jm Shafer MD LAB - CHEMISTRY FELISHA MANUEL [facility] ACCOUNT BILL [address] [place] [address] * (ABNORMAL) LDH BLOOD (06/10/2024 11:54 AM CDT) Only the most recent of2 resultswithin the time period is included. LDH 242(H) 125 - 220 U/L [facility] ACCOUNT BILL Blood BLOOD SPECIMEN / Unknown 06/10/2024 11:54 AM CDT 06/10/2024 Narrative Resulting Agency Comment Lab Testing performed at: [place] [address] [place] [id number] Jm Shafer MD LAB - CHEMISTRY FELISHA MANUEL [facility] ACCOUNT BILL [address] [place] [address] * HAPTOGLOBIN (06/10/2024 11:54 AM CDT) Haptoglobin 138 33 - 346 mg/dL [facility] ACCOUNT BILL Blood BLOOD SPECIMEN / Unknown 06/10/2024 11:54 AM CDT 06/10/2024 Narrative Resulting Agency Comment Lab Testing performed at: [facility] [place] [address] [facility] [phone] Jm Shafer MD LAB - CHEMISTRY FELISHA MANUEL Performing Organization Address City/[facility]/ZIP Co de Phone Number [facility] ACCOUNT BILL [address] [place] [address] * FL UGI W AIR CONTRAST (04/27/2024 10:14 AM CDT) Anatomical Region Laterality Modality Abdomen Radiographic Sangeetha ging 04/27/2024 11:3 8 AM CDT Impressions 04/27/2024 12:36 PM CDT IMPRESSION: 3 cm hiatal hernia. Gastroesophageal reflux cephalad to the jay. This was only inducible with stress maneuvers > Interpreting Provider: Per Estrella MD on 04/27/2024 12:36 PM Narrative 04/27/2024 12:36 PM CDT PROCEDURE: FL UGI SERIES DATE/TIME OF EXAM: 04/27/2024 10:15 AM CLINICAL INFORMATION: None relevant/not provided if blank. 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 Fluoroscopic spot and cine images were obtained during the procedure. Patient subsequently drank thin barium in various positions. FINDINGS: The hiatal hernia extends cephalad about 3 cm. Esophageal peristalsis was normal. The esophagus emptied readily into the stomach. The duodenal bulb distends readily. Antral peristalsis was normal. Stress maneuvers was able to elicit gastroesophageal reflux cephalad to the jay. Right pleural reaction. FLUOROSCOPY DOSE: 2.95 mGy Reference air kerma (ka,r). Fluoroscopy time 90 seconds Procedure Note Per Estrella MD - 04/28/2024 PROCEDURE: FL UGI SERIES DATE/TIME OF EXAM: 04/27/2024 10:15 AM CLINICAL INFORMATION: None relevant/not provided if blank. 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 Fluoroscopic spot and cine images were obtained during the procedure. Patientsubsequently drank thin barium in various positions. FINDINGS: The hiatal hernia extends cephalad about 3 cm. Esophageal peristalsiswas normal. The esophagus emptied readily into the stomach. The duodenalbulb distends readily. Antral peristalsis was normal. Stress maneuvers was able to elicit gastroesophageal reflux cephalad tothe jay. Right pleural reaction. FLUOROSCOPY DOSE: 2.95 mGy Reference air kerma (ka,r). Fluoroscopy time90 seconds IMPRESSION: 3 cm hiatal hernia. Gastroesophageal reflux cephalad to the jay. This was only inducible with stress maneuvers > Interpreting Provider: Per Estrella MD on 04/27/2024 12:36 PM Garret Curry MD FLUOROSCOPY ORDERABL ES * (ABNORMAL) CBC W/O DIFFERENTIAL (01/22/2024 11:06 AM CDT) WBC 9.3 4.0 - 10.7 x10E9/L 01/22/2024 11:13 AM CDT [facility] RBC Count 3.01(L) 3.90 - 5.20 x10E12/L 01/22/2024 11:13 AM CDT [facility] Hemoglobin 9.3(L) 11.9 - 15.8 g/dL 01/22/2024 11:13 AM CDT [facility] Hematocrit 29.1(L) 34.8 - 46.1 % 01/22/2024 11:13 AM CDT [facility] MCV 96.7 80.0 - 98.0 fL 01/22/2024 11:13 AM CDT [facility] MCH 30.9 26.7 - 33.6 pg 01/22/2024 11:13 AM CDT [facility] MCHC 32.0 31.7 - 36.3 g/dL 01/22/2024 11:13 AM CDT [facility] RDW-CV 14.4 11.3 - 14.8 % 01/22/2024 11:13 AM CDT [facility] Platelet Count 157 150 - 420 x10E9/L 01/22/2024 11:13 AM CDT [facility] MPV 11.9(H) 7.8 - 11.4 fL 01/22/2024 11:13 AM CDT [facility] Blood BLOOD SPECIMEN / Unknown Venipuncture / Unknown 01/22/2024 11:06 AM CDT 01/22/2024 11:10 AM CDT Sharla Sheth COMPUTER TESTER-FASHION DIRECTOR LAB - HEMATO LOGY ORDERABLES Performing Organization Address City/State/[facility] Co de Phone Number [facility] [address] [place] [id number] * FL UGI SERIES WO KUB (01/22/2024 8:35 AM CDT) Anatomical Region Laterality Modality Abdomen Radiographic Sangeetha ging 01/22/2024 9:11 AM CDT Impressions 01/22/2024 9:13 AM CDT IMPRESSION: 1. SMALL DIVERTICULUM, LESS THAN 1 CM, IN THE DISTAL ESOPHAGUS, JUST ABOVE THE GASTROESOPHAGEAL JUNCTION. 2. NO EVIDENCE OF EXTRAVASATION OR FIXED OBSTRUCTION. POST BARIATRIC SLEEVE GASTRECTOMY INDICATION: Post sleeve gastrectomy FINDINGS: IMPRESSION: Unremarkable postoperative appearance following the sleeve gastrectomy. > Interpreting Provider: Andre Palafox MD on 01/22/2024 9:13 AM Narrative 01/22/2024 9:13 AM CDT PROCEDURE: FL UGI SERIES, DATE/TIME OF EXAM: 01/22/2024 8:36 AM, LOCATION [facility] INDICATION: K44.9: Diaphragmatic hernia without obstruction or gangrene ADDITIONAL CLINICAL INFORMATION: Ordering Provider Reason For Exam: Technologist Note: Additional: COMPARISON: None. UPPER GI - WATER SOLUBLE CONTRAST INDICATION: 53 year old Female post removal of a LAP-BAND. FINDINGS: The distal esophagus empties readily. There is a small diverticulum just above the gastroesophageal junction. I do not see any extravasation. There is some narrowing at the gastroesophageal junction, consistent with a prior lap band device. I do not see any obstruction or extravasation of contrast. The stomach empties readily into the duodenum. The gastric contour is unremarkable. She received 50 ml of Isovue 370. FLUOROSCOPY DOSE: 4.94 mGy Reference air kerma (ka,r). FLUOROSCOPY TIME: 1.55 minutes; Number of images: 43 Procedure Note Andre Palafox MD - 01/22/2024 PROCEDURE: FL UGI SERIES, DATE/TIME OF EXAM: 01/22/2024 8:36 AM, LOCATION [facility] INDICATION: K44.9: Diaphragmatic hernia without obstruction or gangrene ADDITIONAL CLINICAL INFORMATION: Ordering Provider Reason For Exam: Technologist Note: Additional: COMPARISON: None. UPPER GI - WATER SOLUBLE CONTRAST INDICATION: 53 year old Female post removal of a LAP-BAND. FINDINGS: The distal esophagus empties readily. There is a small diverticulum just above the gastroesophageal junction. I do not see any extravasation. There is some narrowing at the gastroesophageal junction, consistent with a prior lap band device. I do not see any obstruction or extravasation of contrast. The stomach empties readily into theduodenum. The gastric contour is unremarkable. She received 50 ml of Isovue 370. FLUOROSCOPY DOSE: 4.94 mGy Reference air kerma (ka,r). FLUOROSCOPY TIME: 1.55 minutes; Number of images: 43 IMPRESSION: 1. SMALL DIVERTICULUM, LESS THAN 1 CM, IN THE DISTAL ESOPHAGUS, JUSTABOVE THE GASTROESOPHAGEAL JUNCTION. 2. NO EVIDENCE OF EXTRAVASATION OR FIXED OBSTRUCTION. POST BARIATRIC SLEEVE GASTRECTOMY INDICATION: Post sleeve gastrectomy FINDINGS: IMPRESSION: Unremarkable postoperative appearance following the sleeve gastrectomy. > Interpreting Provider: Andre Palafox MD on 01/22/2024 9:13 AM Garret Curry MD FLUOROSCOPY ORDERABL ES * (ABNORMAL) VITAMIN D 25-HYDROXY (01/22/2024 4:31 AM CDT) Only the most recent of3 resultswithin the time period is included. Pathologist [facility] [place] Vitamin D, 25 Hydroxy 20.9(L) 30 - 80 ng/mL 01/22/2024 6:02 AM CDT [facility] Blood BLOOD SPECIMEN / Unknown Venipuncture / Unknown 01/22/2024 4:31 AM CDT 01/22/2024 5:17 AM CDT Narrative [facility] - 01/22/2024 6:02 AM CDT Vitamin D Status: Deficiency <20 ng/mL Insufficiency 20-30 ng/mL Sufficiency 30-100 ng/mL Toxicity >100 ng/mL Garret Curry MD [facility] Organization Address City/State/[facility] Co de Phone Number [facility] [address] [place] [address] * (ABNORMAL) CBC W AUTO DIFFERENTIAL (01/22/2024 4:31 AM CDT) Only the most recent of4 resultswithin the time period is included. Pathologist [facility] [place] WBC 9.1 4.0 - 10.7 x10E9/L 01/22/2024 5:22 AM CDT [facility] RBC Count 2.77(L) 3.90 - 5.20 x10E12/L 01/22/2024 5:22 AM CDT [facility] Hemoglobin 8.3(L) 11.9 - 15.8 g/dL 01/22/2024 5:22 AM CDT [facility] Hematocrit 27.0(L) 34.8 - 46.1 % 01/22/2024 5:22 AM CDT [facility] MCV 97.5 80.0 - 98.0 fL 01/22/2024 5:22 AM CDT [facility] MCH 30.0 26.7 - 33.6 pg 01/22/2024 5:22 AM CDT [facility] MCHC 30.7(L) 31.7 - 36.3 g/dL 01/22/2024 5:22 AM CDT [facility] RDW-CV 14.3 11.3 - 14.8 % 01/22/2024 5:22 AM CDT [facility] Platelet Count 152 150 - 420 x10E9/L 01/22/2024 5:22 AM CDT [facility] MPV 12.6(H) 7.8 - 11.4 fL 01/22/2024 5:22 AM CDT [facility] Neutrophil % 82.2(H) 41.0 - 74.0 % 01/22/2024 5:22 AM CDT [facility] Lymphocyte % 11.7(L) 17.0 - 47.0 % 01/22/2024 5:22 AM CDT [facility] Monocyte % 5.7 3.0 - 11.0 % 01/22/2024 5:22 AM CDT [facility] Eosinophil % 0.1 0.0 - 7.0 % 01/22/2024 5:22 AM CDT [facility] Basophil % 0.1 0.0 - 1.6 % 01/22/2024 5:22 AM CDT [facility] Immature Granulocytes % 0.2 0.0 - 1.0 % 01/22/2024 5:22 AM CDT [facility] Neutrophil Absolute 7.44 1.60 - 7.50 x10E9/L 01/22/2024 5:22 AM CDT [facility] Lymphocyte Absolute 1.06 1.00 - 4.40 x10E9/L 01/22/2024 5:22 AM CDT [facility] Monocyte Absolute 0.52 0.15 - 1.00 x10E9/L 01/22/2024 5:22 AM CDT [facility] Eosinophil Absolute 0.01 0.00 - 0.60 x10E9/L 01/22/2024 5:22 AM CDT [facility] Basophil Absolute 0.01 0.00 - 0.13 x10E9/L 01/22/2024 5:22 AM CDT [facility] Blood BLOOD SPECIMEN / Unknown Venipuncture / Unknown 01/22/2024 4:31 AM CDT 01/22/2024 5:17 AM CDT Garret Curry MD LAB - HEMATOLOGY ORD ERABLES Performing Organization Address City/[facility]/ZIP Co de Phone Number [facility] [address] [place], [place] [phone] * (ABNORMAL) BASIC METABOLIC PANEL (CALCIUM TOTAL) (01/22/2024 4:31 AM CDT) [facility] Glucose 91 70 - 105 mg/dL 01/22/2024 5:43 AM CDT [facility] Sodium 135(L) 136 - 145 mmol/L 01/22/2024 5:43 AM CDT [facility] Potassium 4.8 3.5 - 5.1 mmol/L 01/22/2024 5:43 AM CDT [facility] Chloride 109(H) 98 - 107 mmol/L 01/22/2024 5:43 AM CDT [facility] CO2 18(L) 22 - 29 mmol/L 01/22/2024 5:43 AM CDT [facility] Calcium 7.9(L) 8.4 - 10.4 mg/dL 01/22/2024 5:43 AM CDT [facility] Anion Gap 8 6 - 16 mmol/L 01/22/2024 5:43 AM CDT [facility] BUN 27(H) 7 - 26 mg/dL 01/22/2024 5:43 AM CDT [facility] Creatinine 0.91 0.57 - 1.11 mg/dL 01/22/2024 5:43 AM CDT [facility] eGFR by CKD-EPI 75(L) >=90 mL/min/1.7 3 m2 01/22/2024 5:43 AM CDT [facility] Blood BLOOD SPECIMEN / Unknown Venipuncture / Unknown 01/22/2024 4:31 AM CDT 01/22/2024 5:17 AM CDT Garret Curry MD LAB - CHEMISTRY FELISHA MANUEL Performing Organization Address [facility]/ZIP Co de Phone Number [facility] [address] [place], [place] [phone] * (ABNORMAL) GLUCOSE - POINT OF CARE (01/21/2024 11:13 PM CDT) Only the most recent of3 resultswithin the time period is included. [facility] Glucose WB/POC 130(H) 70 - 106 mg/dL 01/21/2024 11:24 PM CDT [facility] Specimen Type Cap Fingerstick 2023 11:24 PM CDT [facility] Blood BLOOD SPECIMEN / Unknown 01/21/2024 11:13 PM CDT 01/21/2024 11:24 PM CDT Garret Curry MD LAB - POINT OF CARE ORDERABLES [facility] [address] [place] [address] * ETT LINE PERFORMABLE (01/21/2024 8:23 AM CDT) Narrative Gregoria Vasquez APRN-CRNA - 01/21/2024 8:23 AM CDT Gregoria Vasquez APRN-CRNA 01/21/2024 8:24 AM Endotracheal Tube Placement: Patient Location: OR. Intubation Event Date/Time: 01/21/2024 8:06 AM Procedure: intubation ([id number]). Procedure Section: Sedation: under general anesthesia. Indications for Airway Management: anesthesia Procedure pretreatments used? No Induction: modified rapid sequence Patient Position: sniffing Mask Ventilation: not attempted. Blade Type: Video Blade Size: 3 Laryngoscopy View: grade 1 (full cords) Intubation Adjuncts: stylet and video laryngoscope Tube: endotracheal tube Placement: oral Tube type: cuff - inflated Tube Size (MM): 7 Depth of Insertion (CM): 20 Measured From: lips Cuff volume (mL): 8 Cuff Inflated With: air Number of Attempts: 1. Placement Verified By: direct visualization, bilateral breath sounds and CO2 monitor Tube secured with: adhesive tape. Dentition unchanged? Yes Difficult Airway? No. Procedure Start Time: 01/21/2024 8:06 AM. Staff Section Anesthesia Provider: Gregoria Vasquez APRN-CRNA, Performed the procedure Additional Comments: Atraumatic intubation . Noemi Aranda MD GENERAL ANESTHESI A ORDERABLES * EKG 12-LEAD (01/21/2024 6:46 AM CDT) Only the most recent of2 resultswithin the time period is included. Ventricular Rate 62 BPM [facility] Atrial Rate 62 BPM [facility] P-R Interval 144 ms [facility] QRS Duration ms 82 ms [facility] Q-T Interval ms 406 ms [facility] QTC Calculation (Bezet) 412 ms [facility] Calculated P [place] 3 degrees [facility] Calculated R [place] 11 degrees [facility] Calculated T [place] 18 degrees [facility] Interpretation EKG Normal sinus rhythm Normal ECG Confirmed by NUBIA CORRALES MD ([id number]) on 01/22/2024 10:27:33 AM [facility] 01/21/2024 6:46 AM CDT 01/22/2024 10:27 AM CDT Garret Curry MD ECG ORDERABLES [facility] * PATHOLOGY TISSUE EXAM (STL) (11/18/2023 10:23 AM [employer]) Only the most recent of3 resultswithin the time period is included. Case Report Surgical Pathology Report Case: [id number] Authorizing Provider: Faisal Christensen MD Collected: 11/18/2023 10:23 AM Ordering Location: [facility] Received: 11/18/2023 10:38 AM Pathologist: Katherine Perez MD Specimen: Esophageal Biopsy 11/20/2023 8:53 AM [employer] [employer] Final Diagnosis Esophagus, biopsy: -- Squamous mucosa with acute and focal eosinophilic inflammation and detached acute necroinflammatory exudate -- No dysplasia or malignancy 11/20/2023 8:53 AM [facility] Clinical History The patient is a 53-year-old woman with esophagitis. 11/20/2023 8:53 AM [facility] Gross Description Received in formalin labeled with patient's name and esophageal biopsy are 3 fragments of landeros tissue measuring 1 mm. Submitted entirely in cassette A1. 11/20/2023 8:53 AM [facility] Microscopic Description Histologic sections show fragments of squamous mucosa with scattered intraepithelial lymphocytes, neutrophils, and rare eosinophils and spongiosis. There is also detached acute necroinflammatory exudate consistent with the base of an ulcer. A pancytokeratin immunostain highlights benign epithelial cells. CMV, HSV1, and HSV2 stains are negative. PAS is negative for fungal organisms. There is no evidence of malignancy. 11/20/2023 8:53 AM [facility] Disclaimer All histochemical and/or immunohistochemical results are interpreted with controls that demonstrate appropriate staining reactions before reporting results. Note on use of immunocytochemistry reagents: This test was developed and its performance characteristic determined by [facility], Department of Laboratory Medicine. It has not been cleared or approved by the U.S. Food and Drug Administration (FDA). The FDA has determined that such clearance or approval is not necessary. The test is used for clinical purpose. It should not be regarded as investigational or for research. This laboratory is certified to perform high complexity testing. The performance characteristics of the IHC/FRANCIA assays have been validated on formalin-fixed paraffin embedded tissues only. The assays have not been validated on decalcified tissues. Results should be interpreted with caution. 11/20/2023 8:53 AM [facility] Embedded Images 11/20/2023 8:53 AM [facility] Pathology/Cytolo gy ESOPHAGEAL BIOPSY SPECIMEN / Unknown 11/18/2023 10:23 AM [employer] 11/18/2023 10:38 AM [facility] Faisal Christensen MD LAB - PATHOLOGY/CYT OLOGY ORDERABLES [facility] [address] [place] [address] * EGD (11/18/2023 9:18 AM [employer] DR[employer]) Report Endoscopy POC _ Patient Name: Carla Wen Procedure Date: 11/18/2023 9:18 AM Date of : 1970 Admit Type: Outpatient Age: 53 Gender: Female Attending MD: Faisal Christensen MD, [id number] _ Procedure: Upper GI endoscopy Indications: Dysphagia, Follow-up of gastro-esophageal reflux disease, Weight loss, History of a gastric lap band Providers: Faisal Christensen MD (Doctor) Referring MD: Gissel Higuera (Referring MD) Medicines: Monitored Anesthesia Care Complications: No immediate complications. _ Estimated Blood Loss: Estimated blood loss: none. Procedure: Pre-Anesthesia Assessment: - Prior to the procedure, a History and Physical was performed, and patient medications and allergies were reviewed. The patient is competent. The risks and benefits of the procedure and the sedation options and risks were discussed with the patient. All questions were answered and informed consent was obtained. Patient identification and proposed procedure were verified by the physician, the nurse and the transport specialist in the procedure room. Mental Status Examination: alert and oriented. Airway Examination: normal oropharyngeal airway and neck mobility. Respiratory Examination: clear to auscultation. CV Examination: normal. Prophylactic Antibiotics: The patient does not require prophylactic antibiotics. Prior Anticoagulants: The patient has taken no anticoagulant or antiplatelet agents. ASA Grade Assessment: II - A patient with mild systemic disease. After reviewing the risks and benefits, the patient was deemed in satisfactory condition to undergo the procedure. The anesthesia plan was to use monitored anesthesia care (MAC). Immediately prior to administration of medications, the patient was re-assessed for adequacy to receive sedatives. The heart rate, respiratory rate, oxygen saturations, blood pressure, adequacy of pulmonary ventilation, and response to care were monitored throughout the procedure. The physical status of the patient was re-assessed after the procedure. - Prior Aspirin/ NSAID therapy: The patient has taken no aspirin or NSAID medications. After obtaining informed consent, the endoscope was passed under direct vision. Throughout the procedure, the patient's blood pressure, pulse, and oxygen saturations were monitored continuously. The Endoscope was introduced through the mouth, and advanced to the second part of duodenum. The upper GI endoscopy was accomplished without difficulty. The patient tolerated the procedure well. Findings: Severe esophagitis was found 20 to 30 cm from the incisors. Biopsies were taken with a cold forceps for histology. One benign-appearing, intrinsic severe (stenosis; an endoscope cannot pass) stenosis was found 30 cm from the incisors. This stenosis measured 6 mm (inner diameter) x 1 cm (in length). The stenosis was traversed after dilation. A TTS dilator was passed through the scope. Dilation with a 10-11-12 mm balloon dilator was performed to 12 mm. An large 8 cm hiatal hernia was present. The prior placed lap band appears to have slipped distally contributing to the hernia. The gastric body and gastric antrum were normal. The duodenal bulb and second portion of the duodenum were normal. _ Impression: - Severe reflux esophagitis. Biopsied. - Benign-appearing esophageal stenosis. Dilated. - 8 cm hiatal hernia. Displaced lap band. - Normal gastric body and antrum. - Normal duodenal bulb and second portion of the duodenum. Recommendation: - Await pathology results. - Increase Dexilant (dexlansoprazole) 60 mg PO BID and add Pepcid 40mg QHS if biopsies negative for infection. - Refer to a bariatric surgeon at appointment to be scheduled for removal of the band and hiatal hernia repair with fundoplication. - Follow an antireflux regimen. - Post procedure medication orders were given. - Patient has a contact number available for emergencies. The signs and symptoms of potential delayed complications were discussed with the patient. Return to normal activities tomorrow. Written discharge instructions were provided to the patient. Procedure Code(s): --- Professional --- 98636, Esophagogastroduod enoscopy, flexible, transoral; with transendoscopic balloon dilation of esophagus (less than 30 mm diameter) --- Technical --- 47847, Esophagogastroduod enoscopy, flexible, transoral; with transendoscopic balloon dilation of esophagus (less than 30 mm diameter) Diagnosis Code(s): --- Professional --- K21.00, Gastro-esophageal reflux disease with esophagitis, without bleeding K22.2, Esophageal obstruction K44.9, Diaphragmatic hernia without obstruction or gangrene R13.10, Dysphagia, unspecified R63.4, Abnormal weight loss --- Technical --- K21.00, Gastro-esophageal reflux disease with esophagitis, without bleeding K22.2, Esophageal obstruction K44.9, Diaphragmatic hernia without obstruction or gangrene R13.10, Dysphagia, unspecified R63.4, Abnormal weight loss CPT copyright 2020 [employer]. All rights reserved. The codes documented in this report are preliminary and upon sterilizer operator review may be revised to meet current compliance requirements. Dr. Faisal Christensen MD Faisal Christensen MD 11/18/2023 10:28:46 AM This report has been signed electronically. Number of Addenda: 0 Note Initiated On: 11/18/2023 9:18 AM [facility] 11/18/2023 9:18 AM [employer] Ruth Hernandez COMPUTER TESTER-FASHION DIRECTOR GI PROCEDURE O RDERABLES [facility] [place] [address] * (ABNORMAL) LIPID PROFILE REFLEX LDL DIRECT (06/27/2023 1:47 PM CDT) Cholesterol 206(H) 100 - 199 mg/dL [facility] Triglycerides 111 0 - 149 mg/dL [facility] HDL Cholesterol 47 >39 mg/dL [facility] VLDL Calculated 20 5 - 40 mg/dL [facility] BILL LDL Calculated 139(H) 0 - 99 mg/dL [facility] ACCOUNT BILL Comment NOT AVAILABLE [facility] ACCOUNT BILL Comment:Result cannot be obt ained for this observation. Cholesterol/HDL Ratio 4.4 0.0 - 4.4 ratio [facility] ACCOUNT BILL Comment: T. Chol/HDL Ratio Men Women 1/2 Avg.Risk 3.4 3.3 Avg.Risk 5.0 4.4 2X Avg.Risk 9.6 7.1 3X Avg.Risk 23.4 11.0 LDL/HDL Ratio 3.0 0.0 - 3.2 ratio [facility] ACCOUNT BILL Comment: LDL/HDL Ratio Men Women 1/2 Avg.Risk 1.0 1.5 Avg.Risk 3.6 3.2 2X Avg.Risk 6.2 5.0 3X Avg.Risk 8.0 6.1 FASTING Blood BLOOD SPECIMEN / Unknown 06/27/2023 1:47 PM CDT 06/27/2023 Narrative Resulting Agency Comment Lab Testing performed at: [employer] [address] [phone] Gissel Higuera PA-C LAB - CHEMISTRY FELISHA MANUEL [facility] ACCOUNT BILL [address] [place] [address] * IRON + TIBC + FERRITIN (06/27/2023 1:46 PM CDT) TIBC 342 250 - 450 ug/dL [facility] ACCOUNT BILL UIBC 267 131 - 425 ug/dL [facility] ACCOUNT BILL Iron 75 27 - 159 ug/dL [facility] ACCOUNT BILL Iron Saturation 22 15 - 55 % [facility] ACCOUNT BILL Ferritin 66 15 - 150 ng/mL [facility] ACCOUNT BILL Comment:FASTING Blood BLOOD SPECIMEN / Unknown 06/27/2023 1:46 PM CDT 06/27/2023 Narrative Resulting Agency Comment [facility] performed [facility]: [facility] [address] [facility] [id number] Gissel S Davida PA-C LAB - CHEMISTRY ORDE RABJAKI [facility] ACCOUNT BILL [address] [place] [address] * (ABNORMAL) VITAMIN B12 (06/27/2023 1:46 PM CDT) Only the most recent of2 resultswithin the time period is included. Vitamin B12 >2000(H) 232 - 1245 pg/mL [facility] ACCOUNT BILL Comment:FASTING Blood BLOOD SPECIMEN / Unknown 06/27/2023 1:46 PM CDT 06/27/2023 Narrative Resulting Agency Comment Lab Testing performed at: [place] [id number] [facility] [phone] Gissel Davidr PA-C LAB - CHEMISTRY ORDE MAR Performing Organization Address City/[facility]/ZIP Co de Phone Number [facility] ACCOUNT BILL [address] [place] [address] * XR CHEST 2VW (06/26/2023 4:25 PM CDT) Only the most recent of2 resultswithin the time period is included. Anatomical Region Laterality Modality Chest Computed Radiogr aphy 06/26/2023 4:26 PM CDT Impressions 06/26/2023 4:30 PM CDT IMPRESSION: Mild left basilar atelectasis or infiltrate. > Interpreting Provider: Reina Payne MD on 06/26/2023 4:30 PM Narrative 06/26/2023 4:30 PM CDT PROCEDURE: XR CHEST 2VW DATE/TIME OF EXAM: 06/26/2023 4:25 PM INDICATION: R06.09: Other forms of dyspnea. COMPARISON: 06/09/2021 FINDINGS: No cardiomegaly. Mild left basilar atelectasis or infiltrate. The lungs are otherwise clear. Stable chronic blunting of the right costophrenic angle. No significant pleural effusion. No pneumothorax. No acute osseous abnormality. Procedure Note Reina Payne MD - 06/26/2023 PROCEDURE: XR CHEST 2VW DATE/TIME OF EXAM: 06/26/2023 4:25 PM INDICATION: R06.09: Other forms of dyspnea. COMPARISON: 06/09/2021 FINDINGS: No cardiomegaly. Mild left basilar atelectasis or infiltrate. The lungsare otherwise clear. 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 No significant pleural effusion. No pneumothorax. No acute osseous abnormality. IMPRESSION: Mild left basilar atelectasis or infiltrate. 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 _ Estimated Blood Loss: Estimated blood loss was minimal. Procedure: Pre-Anesthesia Assessment: - Prior to the procedure, a History and Physical was performed, and patient medications and allergies were reviewed. The patient's tolerance of previous anesthesia was also reviewed. The risks and benefits of the procedure and the sedation options and risks were discussed with the patient. All questions were answered, and informed consent was obtained. Prior Anticoagulants: The patient has taken no previous anticoagulant or antiplatelet agents. After reviewing the risks and benefits, the patient was deemed in satisfactory condition to undergo the procedure. - Prior to the procedure, a History and Physical was performed, and patient medications, allergies and sensitivities were reviewed. The patient's tolerance of previous anesthesia was reviewed. - The risks and benefits of the procedure and the sedation options and risks were discussed with the patient. All questions were answered and informed consent was obtained. - Prior Aspirin/ NSAID therapy: The patient has taken no previous aspirin or NSAID medications. After obtaining informed consent, the endoscope was passed under direct vision. Throughout the procedure, the patient's blood pressure, pulse, and oxygen saturations were monitored continuously. The Endoscope was introduced through the mouth, and advanced to the second part of duodenum. The upper GI endoscopy was accomplished without difficulty. The patient tolerated the procedure well. Findings: The examined duodenum was normal. The entire examined stomach was normal. A 4 cm hiatal hernia was present. LA Grade D (one or more mucosal breaks involving at least 75% of esophageal circumference) esophagitis with bleeding was found 23 to 31 cm from the incisors. Biopsies were taken with a cold forceps for histology. One moderate stenosis was found 35 cm from the incisors. This stenosis measured less than one cm (in length). The stenosis was traversed with careful manuevering and there was evidence of dilation with passing the scope (bleeding, superficial tearing). _ Impression: - Normal examined duodenum. - Normal stomach. - 4 cm hiatal hernia. - LA Grade D reflux esophagitis with bleeding. Rule out Roberts's esophagus. Biopsied. - One moderate stenosis was found 35 cm from the incisors. This stenosis measured less than one cm (in length). The stenosis was traversed with careful manuevering and there was evidence of dilation with passing the scope (bleeding, superficial tearing). Recommendation: - Patient has a contact number available for emergencies. The signs and symptoms of potential delayed complications were discussed with the patient. Return to normal activities tomorrow. Written discharge instructions were provided to the patient. - Resume previous diet. - Continue present medications. - Await pathology results. - Repeat upper endoscopy in 2 months. - Use a proton pump inhibitor PO BID for 2 months. Procedure Code(s): --- Professional --- 81557, Esophagogastroduo denoscopy, flexible, transoral; with biopsy, single or multiple --- Technical --- 80591, Esophagogastroduo denoscopy, flexible, transoral; with biopsy, single or multiple Diagnosis Code(s): --- Professional --- K44.9, Diaphragmatic hernia without obstruction or gangrene K21.01, Gastro-esophageal reflux disease with esophagitis, with bleeding K22.2, Esophageal obstruction --- Technical --- K44.9, Diaphragmatic hernia without obstruction or gangrene K21.01, Gastro-esophageal reflux disease with esophagitis, with bleeding K22.2, Esophageal obstruction CPT copyright 2019 [employer]. All rights reserved. The codes documented in this report are preliminary and upon sterilizer operator review may be revised to meet current compliance requirements. Dr. Lory Narvaze MD Camille Narvaez MD 12/01/2021 1:55:42 PM Number of Addenda: 0 Note Initiated On: 12/01/2021 12:47 PM [facility] ENDOSCOPY 12/01/2021 12:4 7 PM [employer] Camille Narvaez MD GI PROCEDURE ORDERAB LES [facility] [place] [place] [address] * SARS-COV-2 PCR 2 DAY TAT (06/09/2021 12:11 PM CDT) SARS-CoV-2 PCR 2 DAY TAT Performed [facility] ACCOUNT BILL 06/09/2021 12:1 1 PM CDT 06/09/2021 Narrative Resulting Agency Comment Lab Testing performed at: [facility] [place] [address] [facility] [id number] Johnna Abbott MD LAB - MICROBIOLOGY O ANNIKA [facility] ACCOUNT BILL [address] [place] [address] * COVID-19 SARS-COV-2 PCR QUAL ([facility] (06/09/2021 12:11 PM CDT) Pathologist [facility] [place] SARS-CoV-2 HOMAR Not Detected Not Detected [facility] ACCOUNT BILL Comment: This nucleic acid amplification test was developed and its performance characteristics determined by [employer]. Nucleic acid amplification tests include RT-PCR and TMA. This test has not been FDA cleared or approved. This test has been authorized by FDA under an Emergency Use Authorization (EUA). This test is only authorized for the duration of time the declaration that circumstances exist justifying the authorization of the emergency use of in vitro diagnostic tests for detection of SARS-CoV-2 virus and/or diagnosis of COVID-19 infection under section 564(b)(1) of the Act, 21 U.S.C. 360bbb-3(b) (1), unless the authorization is terminated or revoked sooner. When diagnostic testing is negative, the possibility of a false negative result should be considered in the context of a patient's recent exposures and the presence of clinical signs and symptoms consistent with COVID-19. An individual without symptoms of COVID-19 and who is not shedding SARS-CoV-2 virus would expect to have a negative (not detected) result in this assay. Microbiology SPECIMEN FROM NASOPHARYNGEAL STRUCTURE / Unknown 06/09/2021 12:11 PM CDT 06/09/2021 Narrative Resulting Agency Comment Lab Testing performed at: [facility] [place] [address] [phone] Johnna Abbott MD LAB - MICROBIOLOGY O ANNIKA [facility] ACCOUNT BILL [address] [place] [address] * CULTURE STOOL+ E COLI SHIGA-LIKE TOXIN (02/15/2021 5:06 PM CDT) Culture No growth Salmonella, Shigella, Campylobacter, Escherichia coli O157:h7 or Yersinia ANNE 02/17/2021 9:45 AM CDT [facility] MICROBIOLOGY Culture Escherichia coli Shiga-like toxin testing not performed (NM) ANNE 02/17/2021 9:45 AM CDT [facility] MICROBIOLOGY Stool STOOL SPECIMEN / Unknown Collection / Unknown 02/15/2021 5:06 PM CDT 02/15/2021 5:06 PM CDT Narrative [facility] MICROBIOLOGY - 02/17/2021 9:45 AM CDT Unable to test for Escherichia coli Shiga-like toxin due to absence of fecal organisms. Camille Narvaez MD LAB - MICROBIOLOGY O ANNIKA Performing Organization Address [facility]/ZIP Co de Phone Number [facility] MICROBIOLOGY [address] [place] [address], [facility] [phone] * C DIFFICILE GDH AG + TOXIN A+B (02/15/2021 5:06 PM CDT) GDH Antigen Negative Negative, Invalid 02/16/2021 7:41 AM CDT [facility] MICROBIOLOGY C difficile Toxin A + B Negative Negative, Invalid 02/16/2021 7:41 AM CDT [facility] MICROBIOLOGY Interpretation C difficile Negative for toxigenic C. difficile Negative for toxigenic C. difficile 02/16/2021 7:41 AM CDT [facility] MICROBIOLOGY Stool STOOL SPECIMEN / Unknown Collection / Unknown 02/15/2021 5:06 PM CDT 02/15/2021 5:06 PM CDT Camille Narvaez MD LAB - MICROBIOLOGY O ANNIKA [facility] MICROBIOLOGY [address] [place] [address], [facility] [phone] * O+P RST RFLXED (02/15/2021 5:06 PM CDT) Result 1 Comment 02/21/2021 12:06 AM CDT [facility] ([facility]) Comment: No ova, cysts, or parasites seen. One negative specimen does not rule out the possibility of a parasitic infection. Stool STOOL SPECIMEN / Unknown Collection / Unknown 02/15/2021 5:06 PM CDT 02/15/2021 5:06 PM CDT Narrative [facility] ([facility]) - 02/21/2021 12:06 AM CDT Performed at: [address] [id number] [employer] Teacher: Edmar Epperson PhD, Phone: [phone] Camille Narvaez MD LAB - MICROBIOLOGY O RDERABLES Performing Organization Address [facility] Co de Phone Number [facility] ([facility]) [address] [place] [address] * CALPROTECTIN FECAL (02/15/2021 5:06 PM CDT) Calprotectin Fecal 18 0 - 120 ug/g 02/20/2021 5:07 PM CDT [facility] ([facility]) Comment: Concentration Interpretation Follow-Up <16 - 50 ug/g Normal None >50 -120 ug/g Borderline Re-evaluate in 4-6 weeks >120 ug/g Abnormal Repeat as clinically indicated Stool STOOL SPECIMEN / Unknown Collection / Unknown 02/15/2021 5:06 PM CDT 02/15/2021 5:06 PM CDT Narrative [facility] ([facility]) - 02/20/2021 5:07 PM CDT Performed at: [address] [id number] [employer] Teacher: Adama Larson MD, Phone: [phone] Camille Narvaez MD LAB - BODY FLUID ORD ERABLES Performing Organization Address [facility]/ZIP Co de Phone Number [facility] ([facility]) [address] [place] [address] * O+P PANEL (02/15/2021 5:06 PM CDT) O+P Exam Final report 02/21/2021 12:06 AM CDT [facility] ([facility]) Comment: These results were obtained using wet preparation(s) and trichrome stained smear. This test does not include testing for Cryptosporidium parvum, Cyclospora, or Microsporidia. Stool STOOL SPECIMEN / Unknown Collection / Unknown 02/15/2021 5:06 PM CDT 02/15/2021 5:06 PM CDT Narrative [facility] ([facility]) - 02/21/2021 12:06 AM CDT Performed at: - [address] [id number] [employer] Grade Teacher: Edmar Epperson PhD, Phone: [phone] Camille Narvaez MD [facility] ([facility]) [address] [place] [address] * EGD (02/15/2021 12:11 PM CDT) Report Endoscopy POC __ _ Patient Name: Carla Wen Procedure Date: 02/15/2021 12:11 PM Date of : 1970 Admit Type: Outpatient Age: 50 Gender: Female Attending MD: Camille Narvaez MD __ _ Procedure: Upper GI endoscopy Indications: Epigastric abdominal pain, Functional Dyspepsia, Dysphagia, Heartburn Providers: Camille Narvaez MD (Doctor) Referring MD: Johnna Abbott MD (Referring MD) Medicines: Monitored Anesthesia Care Complications: No immediate complications. __ _ Procedure: Pre-Anesthesia Assessment: - Prior to the procedure, a History and Physical was performed, and patient medications, allergies and sensitivities were reviewed. The patient's tolerance of previous anesthesia was reviewed. - The risks and benefits of the procedure and the sedation options and risks were discussed with the patient. All questions were answered and informed consent was obtained. - Prior to the procedure, a History and Physical was performed, and patient medications and allergies were reviewed. The patient's tolerance of previous anesthesia was also reviewed. The risks and benefits of the procedure and the sedation options and risks were discussed with the patient. All questions were answered, and informed consent was obtained. Prior Anticoagulants: The patient has taken no previous anticoagulant or antiplatelet agents. ASA Grade Assessment: III - A patient with severe systemic disease. After reviewing the risks and benefits, the patient was deemed in satisfactory condition to undergo the procedure. - Prior Aspirin/ NSAID therapy: The patient has taken no previous aspirin or NSAID medications. After obtaining informed consent, the endoscope was passed under direct vision. Throughout the procedure, the patient's blood pressure, pulse, and oxygen saturations were monitored continuously. The Endoscope was introduced through the mouth, and advanced to the second part of duodenum. The upper GI endoscopy was accomplished without difficulty. The patient tolerated the procedure well. Findings: The examined duodenum was normal. Biopsies for histology were taken with a cold forceps for evaluation of celiac disease. Patchy moderate inflammation characterized by congestion (edema), erosions, erythema and aphthous ulcerations was found in the gastric antrum. Biopsies were taken with a cold forceps for histology. Biopsies were taken with a cold forceps for Helicobacter pylori testing using CLOtest. A single 2 mm sessile polyp with no stigmata of recent bleeding was found in the gastric body. Biopsies were taken with a cold forceps for histology. The gastroesophageal flap valve was visualized endoscopically and classified as Hill Grade IV (no fold, wide open lumen, hiatal hernia present). A large hiatal hernia was present. Evidence of lap band The Z-line was irregular and was found 31 cm from the incisors. Biopsies were taken with a cold forceps for histology. LA Grade D (one or more mucosal breaks involving at least 75% of esophageal circumference) esophagitis with bleeding was found. Biopsies were taken with a cold forceps for histology. __ _ Impression: - Normal examined duodenum. Biopsied. - Gastritis. Biopsied. - A single gastric polyp. Biopsied. - Gastroesophageal flap valve classified as Hill Grade IV (no fold, wide open lumen, hiatal hernia present). - Evidence of lap band - Large hiatal hernia. - Z-line irregular, 31 cm from the incisors. Biopsied. - LA Grade D esophagitis with bleeding. Biopsied. Recommendation: - Patient has a contact number available for emergencies. The signs and symptoms of potential delayed complications were discussed with the patient. Return to normal activities tomorrow. Written discharge instructions were provided to the patient. - Resume previous diet. - Continue present medications. - Await pathology results. - Repeat upper endoscopy to check healing. Procedure Code(s): --- Professional --- 95410, Esophagogastroduode noscopy, flexible, transoral; with biopsy, single or multiple --- Technical --- 99131, Esophagogastroduode noscopy, flexible, transoral; with biopsy, single or multiple Diagnosis Code(s): --- Professional --- K29.70, Gastritis, unspecified, without bleeding K31.7, Polyp of stomach and duodenum K44.9, Diaphragmatic hernia without obstruction or gangrene K22.8, Other specified diseases of esophagus K20.91, Esophagitis, unspecified with bleeding R10.13, Epigastric pain K30, Functional dyspepsia R13.10, Dysphagia, unspecified R12, Heartburn --- Technical --- K29.70, Gastritis, unspecified, without bleeding K31.7, Polyp of stomach and duodenum K44.9, Diaphragmatic hernia without obstruction or gangrene K22.8, Other specified diseases of esophagus K20.91, Esophagitis, unspecified with bleeding R10.13, Epigastric pain K30, Functional dyspepsia R13.10, Dysphagia, unspecified R12, Heartburn CPT copyright 2019 [employer]. All rights reserved. The codes documented in this report are preliminary and upon sterilizer operator review may be revised to meet current compliance requirements. Dr. Lory Narvaez MD Camille Narvaez MD 02/15/2021 1:49:55 PM Number of Addenda: 0 Note Initiated On: 02/15/2021 12:11 PM [facility] ENDOSCOPY 02/15/2021 12:1 1 PM CDT Camille Narvaez MD GI PROCEDURE ORDERAB LES [facility] [place] [place] [address] * ENDOSCOPY, COLON, SCREENING (02/15/2021 12:11 PM CDT) Report Endoscopy POC _ Patient Name: Carla Wen Procedure Date: 02/15/2021 12:11 PM Date of : 1970 Admit Type: Outpatient Age: 50 Gender: Female Attending MD: Camille Narvaez MD _ Procedure: Colonoscopy Indications: Chronic diarrhea Providers: Camille Narvaez MD (Doctor) Referring MD: Johnna Abbott MD (Referring MD) Medicines: Monitored Anesthesia Care Complications: No immediate complications. _ Procedure: Pre-Anesthesia Assessment: - Prior to the procedure, a History and Physical was performed, and patient medications and allergies were reviewed. The patient's tolerance of previous anesthesia was also reviewed. The risks and benefits of the procedure and the sedation options and risks were discussed with the patient. All questions were answered, and informed consent was obtained. Prior Anticoagulants: The patient has taken no previous anticoagulant or antiplatelet agents. ASA Grade Assessment: III - A patient with severe systemic disease. After reviewing the risks and benefits, the patient was deemed in satisfactory condition to undergo the procedure. - Prior to the procedure, a History and Physical was performed, and patient medications, allergies and sensitivities were reviewed. The patient's tolerance of previous anesthesia was reviewed. - The risks and benefits of the procedure and the sedation options and risks were discussed with the patient. All questions were answered and informed consent was obtained. After I obtained informed consent, the scope was passed under direct vision. Throughout the procedure, the patient's blood pressure, pulse, and oxygen saturations were monitored continuously. The Colonoscope was introduced through the anus and advanced to the terminal ileum. The colonoscopy was performed without difficulty. The patient tolerated the procedure well. The terminal ileum, ileocecal valve, appendiceal orifice, and rectum were photographed. The quality of the bowel preparation was adequate to identify polyps 6 mm and larger in size. Findings: The terminal ileum appeared normal. A few small-mouthed diverticula were found in the sigmoid colon. Non-bleeding external and internal hemorrhoids were found during retroflexion and during perianal exam. The hemorrhoids were medium-sized. Biopsies for histology were taken with a cold forceps from the entire colon for evaluation of microscopic colitis. The digital rectal exam was normal. _ Impression: - The examined portion of the ileum was normal. - Diverticulosis in the sigmoid colon. - Non-bleeding external and internal hemorrhoids. - Biopsies were taken with a cold forceps from the entire colon for evaluation of microscopic colitis. Recommendation: - Patient has a contact number available for emergencies. The signs and symptoms of potential delayed complications were discussed with the patient. Return to normal activities tomorrow. Written discharge instructions were provided to the patient. - Resume previous diet. - Continue present medications. - Await pathology results. - Repeat colonoscopy in 5-10 years for screening purposes given family history of colon cancer Procedure Code(s): --- Professional --- 64515, Colonoscopy, flexible; with biopsy, single or multiple --- Technical --- 86077, Colonoscopy, flexible; with biopsy, single or multiple Diagnosis Code(s): --- Professional --- K64.8, Other hemorrhoids K52.9, Noninfective gastroenteritis and colitis, unspecified K57.30, Diverticulosis of large intestine without perforation or abscess without bleeding --- Technical --- K64.8, Other hemorrhoids K52.9, Noninfective gastroenteritis and colitis, unspecified K57.30, Diverticulosis of large intestine without perforation or abscess without bleeding CPT copyright 2019 [employer]. All rights reserved. The codes documented in this report are preliminary and upon sterilizer operator review may be revised to meet current compliance requirements. Dr. Lory Narvaez MD Camille Narvaez MD 02/15/2021 1:43:26 PM Number of Addenda: 0 Note Initiated On: 02/15/2021 12:11 PM [facility] ENDOSCOPY 02/15/2021 12:1 1 PM CDT Camille Narvaez MD GI [place] [address] * TSH REFLEX FREE T4 (01/31/2021 8:42 AM CDT) TSH 3.020 0.450 - 4.500 uIU/mL [facility] ACCOUNT BILL Comment:FASTING Blood BLOOD SPECIMEN / Unknown 01/31/2021 8:42 AM CDT 01/31/2021 Narrative Resulting Agency Comment Lab Testing performed at: [facility] [employer] [facility] [id number] Gissel Higuera PA-C LAB - CHEMISTRY ORDE MAR Performing Organization Address [facility] [facility] Co de Phone Number [facility] ACCOUNT BILL [address] [place] [address] * BNP [B-TYPE NATRIURETIC PEPTIDE] (01/31/2021 8:41 AM CDT) Only the most recent of2 resultswithin the time period is included. BNP 55.5 0.0 - 100.0 pg/mL [facility] ACCOUNT BILL Comment:FASTING Blood BLOOD SPECIMEN / Unknown 01/31/2021 8:41 AM CDT 01/31/2021 Narrative Resulting Agency Comment Lab Testing performed at: [facility] [employer] [facility] [id number] Gissel REBOLLEDO-Anil LAB - CHEMISTRY ORDE MAR Performing Organization Address City/[facility]/ZIP Co de Phone Number [facility] ACCOUNT BILL [address] [place] [address] * IRON + TIBC PANEL (01/31/2021 8:41 AM CDT) TIBC 316 250 - 450 ug/dL [facility] ACCOUNT BILL UIBC 202 131 - 425 ug/dL [facility] ACCOUNT BILL Iron 114 27 - 159 ug/dL [facility] ACCOUNT BILL Iron Saturation 36 15 - 55 % [facility] ACCOUNT BILL Comment:FASTING Blood BLOOD SPECIMEN / Unknown 01/31/2021 8:41 AM CDT 01/31/2021 Narrative Resulting Agency Comment [facility] [address] [facility] [id number] Gissel Davidpk [facility] - CHEMISTRY ORDJamin MAR Performing Organization Address [facility] de Phone Number [facility] ACCOUNT BILL [address] [place] [address] * (ABNORMAL) LIPID PROFILE (LIPID PANEL) (01/31/2021 8:41 AM CDT) Cholesterol 228(H) 100 - 199 mg/dL [facility] ACCOUNT BILL Triglycerides 165(H) 0 - 149 mg/dL [facility] ACCOUNT BILL HDL Cholesterol 47 >39 mg/dL [facility] ACCOUNT BILL VLDL Calculated 30 5 - 40 mg/dL [facility] ACCOUNT BILL LDL Calculated 151(H) 0 - 99 mg/dL [facility] ACCOUNT BILL Comment NOT NEEDED [facility] ACCOUNT BILL Comment: FASTING Ancillary determined the test is not needed. Blood BLOOD SPECIMEN / Unknown 01/31/2021 8:41 AM CDT 01/31/2021 Narrative Resulting Agency Comment Lab Testing performed at: [address] [id number] Gissel Varner Davida [facility] - CHEMISTRY FELISHA MANUEL Performing Organization Address [facility] de Phone Number [facility] ACCOUNT BILL [address] [place] [address] * CARDIAC RHYTHM STRIP ORDER (06/07/2020 6:19 PM CDT) Narrative 06/07/2020 6:19 PM CDT Ordered by an unspecified provider. Scanned Document CARDIAC SERVICES ORD ERABLES * URINALYSIS REFLEX MICROSCOPIC REFLEX CULTURE (05/30/2020 3:29 PM CDT) Color UA Yellow Straw, Yellow 05/30/2020 3:41 PM CDT [facility] Clarity UA Clear Clear 05/30/2020 3:41 PM CDT [facility] Glucose UA Negative Negative 05/30/2020 3:41 PM CDT [facility] Bilirubin UA Negative Negative 05/30/2020 3:41 PM CDT [facility] Ketone UA Negative Negative 05/30/2020 3:41 PM CDT [facility] Specific Finley UA 1.011 1.005 - 1.030 05/30/2020 3:41 PM CDT [facility] Blood UA Negative Negative 05/30/2020 3:41 PM CDT [facility] pH UA 7.0 5.0 - 8.0 pH 05/30/2020 3:41 PM CDT [facility] Protein UA Negative Negative 05/30/2020 3:41 PM CDT [facility] Urobilinogen UA Negative Negative mg/dL 05/30/2020 3:41 PM CDT [facility] Nitrite UA Negative Negative 05/30/2020 3:41 PM CDT [facility] Leukocyte UA Negative Negative 05/30/2020 3:41 PM CDT [facility] Urine Microscopy Urine microscopy not indicated 05/30/2020 3:41 PM CDT [facility] Reflex Status Culture not indicated 05/30/2020 3:41 PM CDT [facility] Urine URINE SPECIMEN OBTAINED BY CLEAN CATCH PROCEDURE / Unknown Collection / Unknown 05/30/2020 3:29 PM CDT 05/30/2020 3:34 PM CDT Narrative [facility] - 05/30/2020 3:41 PM CDT Rafael Aguirre COMPUTER TESTER-FASHION DIRECTOR LAB - URINALYS IS ORDERABLES [facility] [address] [place] [address] * SARS-COV-2 (COVID-19) IN HOUSE (05/30/2020 10:23 AM CDT) COVID-19 PCR Not detected Not detected, Invalid 05/30/2020 9:37 PM CDT [facility] Microbiology SPECIMEN FROM NASOPHARYNGEAL STRUCTURE / Unknown Collection / Unknown 05/30/2020 10:23 AM CDT 05/30/2020 10:31 AM CDT Narrative [facility] - 05/30/2020 9:37 PM CDT This Real Time RT-PCR assay was developed and its performance characteristics determined by [facility]. This test has been authorized by the Food and Drug administration (FDA)under an Emergency Use Authorization (EUA). This test has been validated in accordance with the FDA's guidance document Policy for Diagnostic Testing in Laboratories Certified to perform High Complexity Testing under CLIA prior to Emergency Use Authorization for Coronavirus Disease-2019 during the Public Health Emergency issued on December 19, 2019. FDA independent review of this validation is pending. This test is only authorized for the duration of time the declaration that circumstances exist justifying the authorization of emergency use of in vitro diagnostic tests for detection of SARS-CoV-2 virus and/or diagnosis of COVID-19 infection under section 564(b)(1) of the Act, 21 U.S.C 360bbb-3 (b)(1), unless the authorization is terminated or revoked sooner. Mayco Ferrer MD LAB - MICROBIOLOGY O ANNIKA Performing Organization Address City/State/[facility] Co de Phone Number [facility] [address] [place] [address], [facility] [phone] * (ABNORMAL) PROCALCITONIN LEVEL (05/30/2020 10:23 AM CDT) Procalcitonin 0.34(H) <0.10 ng/mL 05/30/2020 12:15 PM CDT [facility] Blood BLOOD SPECIMEN / Unknown Venipuncture / Unknown 05/30/2020 10:23 AM CDT 05/30/2020 11:35 AM CDT Narrative [facility] - 05/30/2020 12:15 PM CDT The change in procalcitonin (PCT) concentration over time provides support in decision making on antibiotic discontinuation for suspected or confirmed septic patients. Follow-up samples should be tested once every 1-2 days based upon physician discretion taking into account the patient s evolution and progress. Consider discontinuation of antibiotic therapy if the PCT current is <= 0.5 ng/mL or if the delta PCT is > 80%. Duration of antibiotics should not be determined solely on PCT; established guidelines for the indication should be followed. PCT peak: Highest observed PCT concentration PCT current: Most recent PCT concentration Calculate delta PCT using the following equation: Delta PCT = PCT Peak PCT current X 100% PCT Peak The Change in Procalcitonin Calculator is available at [email or web address] If clinical picture has not improved and PCT remains high, reevaluate and consider treatment failure or other causes. Rafael Aguirre APRN-FASHION DIRECTOR LAB - CHEMISTR Y ORDERABLES Performing Organization Address [facility] Co de Phone Number [facility] [address] [place] [phone] * TROPONIN I (05/30/2020 10:23 AM CDT) Pathologist [facility] [place] Troponin I 0.019 <0.038 ng/mL 05/30/2020 11:01 AM CDT [facility] Blood BLOOD SPECIMEN / Unknown Venipuncture / Unknown 05/30/2020 10:23 AM CDT 05/30/2020 10:31 AM CDT Mayco Ferrer MD LAB - CHEMISTRY ORDE RABJAKI Performing Organization Address [facility] de Phone Number [facility] [address] [place] [phone] * (ABNORMAL) C-REACTIVE PROTEIN (05/30/2020 10:23 AM CDT) Pathologist [facility] [place] C-Reactive Protein 7.92(H) <=0.50 mg/dL 05/30/2020 11:51 AM CDT [facility] Blood BLOOD SPECIMEN / Unknown Venipuncture / Unknown 05/30/2020 10:23 AM CDT 05/30/2020 11:35 AM CDT Rafael Aguirre APRN-FASHION DIRECTOR LAB - CHEMISTR Y ORDERABLES Performing Organization Address [facility] de Phone Number [facility] [address] [place] [address] * CULTURE BLOOD (05/30/2020 10:20 AM CDT) Only the most recent of2 resultswithin the time period is included. Culture No growth day 5 ANNE 06/04/2020 1:30 PM CDT [facility] Blood PERIPHERAL BLOOD / Unknown Venipuncture / Unknown 05/30/2020 10:20 AM CDT 05/30/2020 10:31 AM CDT Mayco Ferrer MD LAB - MICROBIOLOGY O RDERABLES [facility] [address] [place], [place] [address] [phone] * LACTIC ACID BLOOD (05/30/2020 10:20 AM CDT) Lactic Acid 1.13 0.5 - 2.2 mmol/L 05/30/2020 10:51 AM CDT [facility] Blood BLOOD SPECIMEN / Unknown Venipuncture / Unknown 05/30/2020 10:20 AM CDT 05/30/2020 10:32 AM CDT Mayco Ferrer MD LAB - CHEMISTRY ORDE RABLES Performing Organization Address City/[facility]/ZIP Co de Phone Number [facility] [address] [place] [phone] * XR CHEST 1VW PORTABLE (05/30/2020 9:52 AM CDT) Anatomical Region Laterality Modality Chest Radiographic Sangeetha ging 05/30/2020 10:0 3 AM CDT Impressions 05/30/2020 10:03 AM CDT Bilateral infiltrates, right greater than left. *Reading Radiologist: Dillan Oden on 05/30/2020 at 10:03 AM Narrative 05/30/2020 10:03 AM CDT Portable Chest AP History: Shortness of breath. COMPARISON: None. FINDINGS: There is a patchy nodular infiltrate throughout the right mid and lower lung and to a lesser extent left mid and lower lung. No pleural effusion or pneumothorax identified. Procedure Note Dillan Oden MD - 05/30/2020 Portable Chest AP History: Shortness of breath. COMPARISON: None. FINDINGS: There is a patchy nodular infiltrate throughout the right mid and lower lung and to a lesser extent left mid and lower lung. No pleural effusion or pneumothorax identified. IMPRESSION Bilateral infiltrates, right greater than left. *Reading Radiologist: Dillan Oden on 05/30/2020 at 10:03 AM Mayco Ferrer MD DIAGNOSTIC IMAGING O RDERABLES * SKIN TEST PPD - POINT OF CARE (08/13/2019) PPD Other MISCELLANEOUS SAMPLE S / Unknown 08/13/2019 Mayda Panda COMPUTER TESTER-FASHION DIRECTOR LAB - PO INT OF CARE ORDERABLES Care Teams Clinic Cma Relationship Specialty Start Date End Date Johnna Abbott MD [address] [facility] [address] [place] [address] PCP - General Family Medicine 11/20/23 Camille Narvaez MD Business Systems Advisor Gastroenterology 01/03/22 [place] [address] [place] [address] General Surgery 05/18/24 [place] [address] [facility] [address] [place] [phone] Lumber Stacker Driver/Oncologist Hematology and Oncology 06/10/24
--- OUTSIDE RECORDS SUMMARY | 2024-12-14 19:13 | XMS_ITS | Data Portability ---
Author Organization [facility] Kellie [facility] [employer] Address [address] [place] [address] Care Team Providers Care Business Functional Analyst Name Role Phone ERIC BRAND Primary Care Provider Assessment Encounter Date Assessment Date Assessment LastModified by Organization Details LastModified Time 12/29/2013 12/29/2013 Counseled Pt. on diet, lifestyle and exercise modifications. Advised Pt. to avoid slippery, slimy, crunchy, crumbly foods. Increase exercise to 150 minutes per week. Follow up in 4-6 weeks. [email or web address] Not available 12/29/2013 16:22:22 10/23/2016 10/23/2016 Adjustment done. Post adjustment instructions given. Dietary instructions and lifestyle modifications reinforced. Continue to exercise and be active instruction to start taking chewable MVI. Not available 10/23/2016 14:44:10 07/23/2017 07/23/2017 25 minutes was spent with the Patient during today s visit. The following items were discussed: - patients band was not slipped, t band was not obstructed. but due to patient symptoms, a decision was made to remove some fluid from the band. post adjustment bariatric instructions and lifestyle modification given to patient. Instructed to come in sooner if symptoms persist or worsen. -Patient was counseled on diet modifications to promote healthy weight loss. The following subjects were discussed: follow a high protein/low carbohydrate diet consisting of meat (red meat in moderation)/fish /eggs and vegetables. No fried or breaded foods are acceptable. Each meal should include a protein and a vegetable. Limit the use of condiments (mustard, balsamic vinegars, fresh squeezed lemon or chevak are acceptable), avoid salad dressings/mayonn aise/gravy/sauce s. Fruit is not recommended related to high sugar content. Snacking is prohibited related to extra/empty calories. -As a rule of thumb, anything that can be eaten with a spoon is not encouraged because foods that are slippery/slimy (i.e. yogurt/pudding/s oups/pasta/chili /ice cream/rice/potat oes/jello) or crunchy/crumbly (i.e. crackers, chips, cookies, popcorn, nuts) serve as empty calories because they pass the band to easily not providing any sense of restriction. -Reminded Patient to take a daily multivitamin (i.e. Flintstones x 2 tabs/day, Fusion, Bariatric Advantage, One-a-Day, Centrum) which has to be in crushable, chewable or liquid form to avoid vitamin deficiencies. -Liquids: 2-3 liters of plain water is recommended daily (unless history of CHF or kidney disease). Crystal light, black iced tea, black coffee, diet Snapple are also acceptable forms of liquids. Avoid sodas, juices, liquor, beer and anything carbonated. Carbonated drinks may cause the lap band to slip. -Exercise: 150 minutes of physical activity (above and beyond normal daily activities) per week. Cardio exercises (bike, walking, jogging, elliptical) and weight training are recommended. In order for physical exercise to have a positive effect on the body, exercise must be done for at least 20 minutes per exercise session. -Follow up visits: Explained that follow up visits every 2-4 weeks are vital to weight loss success. Not available 07/29/2017 15:54:10 07/15/2018 07/15/2018 25 minutes was spent with the Patient during today s visit. The following items were discussed: -Lap band adjustment performed today. Lap band was in appropriate position and saline was added to the system to provide an adequate amount of restriction. -Advised Patient to follow a full liquid diet (sugar-free pudding/applesau ce/yogurt/popsic les, blended Miller s brand soups, Atkins/Slim Fast/Premier protein shakes, water, crystal light) for the next 48 hours to allow stomach swelling s/p adjustment to subside. -If any of the following symptoms occur (nausea, reflux, globus sensation, feeling of choking, vomiting) I advised Patient to return to office as soon as possible to have lap band checked and fluid removed if indicated. -Patient was counseled on diet modifications to promote healthy weight loss. The following subjects were discussed: follow a high protein/low carbohydrate diet consisting of meat (red meat in moderation)/fish /eggs and vegetables. No fried or breaded foods are acceptable. Each meal should include a protein and a vegetable. Limit the use of condiments (mustard, balsamic vinegars, fresh squeezed lemon or chevak are acceptable), avoid salad dressings/mayonn aise/gravy/sauce s. Fruit is not recommended related to high sugar content. Snacking is prohibited related to extra/empty calories. -As a rule of thumb, anything that can be eaten with a spoon is not encouraged because foods that are slippery/slimy (i.e. yogurt/pudding/s oups/pasta/chili /ice cream/rice/potat oes/jello) or crunchy/crumbly (i.e. crackers, chips, cookies, popcorn, nuts) serve as empty calories because they pass the band to easily not providing any sense of restriction. -Reminded Patient to take a daily multivitamin (i.e. Flintstones x 2 tabs/day, Fusion, Bariatric Advantage, One-a-Day, Centrum) which has to be in crushable, chewable or liquid form to avoid vitamin deficiencies. -Liquids: 2-3 liters of plain water is recommended daily (unless history of CHF or kidney disease). Crystal light, black iced tea, black coffee, diet Snapple are also acceptable forms of liquids. Avoid sodas, juices, liquor, beer and anything carbonated. Carbonated drinks may cause the lap band to slip. -Exercise: 150 minutes of physical activity (above and beyond normal daily activities) per week. Cardio exercises (bike, walking, jogging, elliptical) and weight training are recommended. In order for physical exercise to have a positive effect on the body, exercise must be done for at least 20 minutes per exercise session. -Follow up visits: Explained that follow up visits every 2-4 weeks are vital to weight loss success. Not available 08/04/2018 17:56:59 12/14/2019 12/14/2019 25 minutes was spent with the Patient during today s visit. The following items were discussed: -Lap band adjustment performed today. Lap band was in appropriate position and saline was added to the system to provide an adequate amount of restriction. DIscussed that lapband is in good position. -Advised Patient to follow a full liquid diet (sugar-free pudding/applesau ce/yogurt/popsic les, blended Miller s brand soups, Atkins/Slim Fast/Premier protein shakes, water, crystal light) for the next 48 hours to allow stomach swelling s/p adjustment to subside. -If any of the following symptoms occur (nausea, reflux, globus sensation, feeling of choking, vomiting) I advised Patient to return to office as soon as possible to have lap band checked and fluid removed if indicated. -Patient was counseled on diet modifications to promote healthy weight loss. The following subjects were discussed: follow a high protein/low carbohydrate diet consisting of meat (red meat in moderation)/fish /eggs and vegetables. No fried or breaded foods are acceptable. Each meal should include a protein and a vegetable. Limit the use of condiments (mustard, balsamic vinegars, fresh squeezed lemon or chevak are acceptable), avoid salad dressings/mayonn aise/gravy/sauce s. Fruit is not recommended related to high sugar content. Snacking is prohibited related to extra/empty calories. -As a rule of thumb, anything that can be eaten with a spoon is not encouraged because foods that are slippery/slimy (i.e. yogurt/pudding/s oups/pasta/chili /ice cream/rice/potat oes/jello) or crunchy/crumbly (i.e. crackers, chips, cookies, popcorn, nuts) serve as empty calories because they pass the band to easily not providing any sense of restriction. -Reminded Patient to take a daily multivitamin (i.e. Flintstones x 2 tabs/day, Fusion, Bariatric Advantage, One-a-Day, Centrum) which has to be in crushable, chewable or liquid form to avoid vitamin deficiencies. -Liquids: 2-3 liters of plain water is recommended daily (unless history of CHF or kidney disease). Crystal light, black iced tea, black coffee, diet Snapple are also acceptable forms of liquids. Avoid sodas, juices, liquor, beer and anything carbonated. Carbonated drinks may cause the lap band to slip. -Exercise: 150 minutes of physical activity (above and beyond normal daily activities) per week. Cardio exercises (bike, walking, jogging, elliptical) and weight training are recommended. In order for physical exercise to have a positive effect on the body, exercise must be done for at least 20 minutes per exercise session. -Follow up visits: Explained that follow up visits every 2-4 weeks are vital to weight loss success. [email or web address] Not available 12/15/2019 15:39:02 Plan of Treatment Reminders Order Date Submit Date Provider Last Modified By Organization Details Last Modified Time Details Appointments None record ed. Lab None record ed. Referral None record ed. Procedures None record ed. Surgeries None record ed. Imaging None record ed. Medication Orders None record ed. Patient TargetsNo targets recorded. Patient Instructions Encounter Date Encounter Id Patient Instructions Last Modified By Organization Details Last Modified Time 12/29/2013 [id number] plan of care discussed. patient verbalized full understanding. Not available 03/12/2014 13:00:27 10/23/2016 [id number] Indigestion (Dyspepsia): Care Instructions RIRI Not available 11/25/2016 05:01:47 When You Want to Lose Weight: Care Instructions RIRI Not available 11/25/2016 05:01:47 07/23/2017 [id number] Indigestion (Dyspepsia): Care Instructions RIRI Not available 09/01/2017 05:02:01 When You Want to Lose Weight: Care Instructions RIRI Not available 09/01/2017 05:02:00 07/15/2018 [id number] When You Want to Lose Weight: Care Instructions Not available 08/04/2018 17:57:41 12/14/2019 [id number] When You Want to Lose Weight: Care Instructions Not available 12/15/2019 15:38:31 Reason for Referral None Reported. Problems Name Problem SNOMED Code Status Onset Date Resolution Date Notes Provider Name and Address Organization Details Recorded Time Finding of body mass index 436988870 Completed 10/23/2016 ivy augustin, [facility] 7 12:06:48 Morbid obesity 859233820 Active EILEEN Anand, [place], [address] , [facility] - [facility] 4 13:00:27 Gastroesop hageal reflux disease 830234097 Completed 10/23/2016 ivy augustin [facility] 7 12:10:01 Heartburn 45988056 Active EILEEN Anand, [place], [address] , [facility] - [facility] 4 13:00:27 Problem Notes None recorded. Procedures Surgical History Date Name Laterality Status Provider Name and Address Organization Details Recorded Time 0 adjustment CREWS completed EILEEN Anand, [place], [address], [facility] - [facility] 12/15/2019 15:38:26 7 Crews/Robb Adjustment (Female) completed EILEEN Anand, [place], [address], [facility] 07/29/2017 15:53:31 7 Crews/Robb Adjustment (Female) completed EILEEN Anand, [place], [address], [facility] - [facility] 10/23/2016 14:44:04 4 Crews/Robb Adjustment (Female) completed [address], [place], [address], [facility] - [facility] 03/12/2014 12:59:37 3 adjustment CREWS completed Not Available [facility] 12/16/2012 12:32:58 0 LAP BAND completed Not Available [facility] 3 11:46:57 6 OTHER completed Not Available [facility] 3 11:46:57 4 completed Not Available [facility] 3 11:46:57 2 completed Not Available [facility] 3 11:46:57 0 completed Not Available [facility] 3 11:46:57 Imaging Results None recorded. Procedure Notes None recorded. Medical Equipment None Reported. Allergies No known drug allergies Medications Name Sig Start Date Stop Date Status Note LastModified by Organization Details LastModified Time amoxicillin 500 mg capsule TAKE 1 CAPSULE 3 TIMES A DAY UNTIL ALL TAKEN 07/15 completed Not Available Not Available Not Available ranitidine 300 mg tablet Take 1 tablet every day by oral route as directed . 10/23 completed Not Available Not Available Not Available topiramate 25 mg tablet TAKE 1 TABLET BY MOUTH ONCE DAILY WITH SUPPER active Not Available Not Available No t Available phentermine 37.5 mg tablet TAKE 1 TABLET BY MOUTH ONCE DAILY active Not Available Not Available No t Available paroxetine 20 mg tablet TAKE 1 TABLET BY MOUTH ONCE DAILY active Not Available Not Available No t Available Prilosec active Not Available Not Avai lable Not Available Vitals Date Recorded Body weight Body mass index (BMI) Body height Heart rate Systolic blood pressure Diastolic blood pressure Provider Name and Address Organization Details Last Updated DateTime 0 025066. 69 g 43.7 kg/m2 152.4 cm 72 /min 134 mm[Hg] 70 mm[Hg] Della Arora [place] [facility] 0 10:18:28 Date Recorded Body weight Body height Body mass index (BMI) Heart rate Systolic blood pressure Diastolic blood pressure Provider Name and Address Organization Details Last Updated DateTime 4 59229.1 87651 g 152.4 cm 40.1 kg/m2 68 /min 132 mm[Hg] 90 mm[Hg] Elke Amiarianna [facility] 4 15:38:22 Date Recorded Body weight Body height Body mass index (BMI) Heart rate Systolic blood pressure Diastolic blood pressure Provider Name and Address Organization Details Last Updated DateTime 7 40583.3 8 g 152.4 cm 41.5 kg/m2 84 /min 118 mm[Hg] 80 mm[Hg] ivy karuna [facility] 7 12:06:08 Date Recorded Body height Body mass index (BMI) Body weight Heart rate Respiratory rate Systolic blood pressure Diastolic blood pressure Provider Name and Address Organization Details Last Updated DateTime 7 152.4 cm 34.6 kg/m2 35330.5 5 g 88 /min 20 /min 138 mm[Hg] 82 mm[Hg] ivy beckman [facility] 7 11:58:33 Date Recorded Body height Body mass index (BMI) Body weight Heart rate Systolic blood pressure Diastolic blood pressure Provider Name and Address Organization Details Last Updated DateTime 8 152.4 cm 47.1 kg/m2 642325. 76 g 70 /min 120 mm[Hg] 80 mm[Hg] King Solis [facility] 8 14:48:46 Social History Question Answer Notes LastModified by Organizat ion Details LastModified Time Tobacco Smoking Status Never Smoker Not Available [facility] 12/16/2012 11:46:57 What Is Your Level Of Alcohol Consumption? None [email or web address] [id number] Information not available 12/16/2012 Is Blood Transfusion Acceptable In An Emergency? 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 07/15/2018 Information not available 05/14/2019 How Many Children Do You Have? 3 Information not available 12/16/2012 Sex: Unknown Functional Status None recorded. Mental Status None recorded. Family History Nothing Reported. 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 THYROID DISEASE N BLOOD DISORDERS N LUNG DISEASE N PSYCH HISTORY Y RENAL DISEASE N HEMATOLOGICAL DISEASE N SMALL BOWEL DISEASE N GERD/REFLUX N BREAST DISEASE N CANCER N ARTHRITIS N HIGH CHOLESTEROL N MORBID OBESITY Y UROLOGICAL DISEASES N SEVERE WEIGHT LOSS N ENT DISORDERS N RECTAL DISEASE N COAGULATION DISORDERS N COLON DISEASES N ANEMIA Y VASCULAR DISEASE N STOMACH/ ESOPHAGUS N HYPERTENSION N EYE DISEASE N CAD (coronary artery disease) N SKIN DISEASE N HEART DISEASE N BILIARY DISEASE N PROSTATE DISEASE N BLEEDING DISORDERS N Gynecological History Statement/Question Response Family Hx of Thryoid N Family Hx of Uterine N If Post Menopausal, Age at Menopause Family Hx of Ovarian N Family Hx of Melanoma N Family Hx of Colon N Menses Monthly N Family Hx of Breat N NUMBER OF CHILDREN 3 Current Control Method Menopause LMP Approximate Obstetrics History GPAL:G 0 P 0 0 0 0 Past Encounters Encounter ID Performer Location Encounter Start Date Encounter Closed Date Diagnosis/Indication Diagnosis SNOMED-CT Code Diagnosis ICD10 Code Diagnosis Note [id number] [facility] [address] [place] [address] 12/16/2012 11:20:43 12/16/2012 12:35:[id number] [facility] [address] [place] [address] 12/29/2013 15:16:13 03/16/2014 11:50:18 Morbid obesity 816259082 Gastroesop hageal reflux disease 296454370 Heartburn 88447351 Body mass index 40+ - severely obese 312468755 [id number] EILEEN An[address] [facility] [address] [place] [address] 10/23/2016 11:55:03 12/11/2016 14:20:06 Heartburn 38725215 R12 Morbid obesity 564814771 E66.01 [id number] Ju Jez Cathyangelika, EILEEN [facility] [address] [place] [address] 07/23/2017 11:18:57 07/29/2017 16:16:55 Morbid obesity 837194716 E66.01 Heartburn 78176914 R12 [id number] Ju Jez Cathyangelika, [employer] [facility] [address] [place] [address] 07/15/2018 14:26:53 08/14/2018 11:56:17 Morbid obesity 943132587 E66.01 [id number] Ju Jez Zimmerman, [employer] [facility] [address] [place] [address] 12/14/2019 09:58:30 12/15/2019 16:41:20 Morbid obesity 485513126 E66.01 Health Concerns Section Related Observation LastModified by Organization Detai ls LastModified Time None Recorded Concern Status LastModified by Organization Details LastModified Time None Recorded Advance Directives Directive None Recorded Payers Encounter Date Sequence Insurance Name Policy Number Policy Venegas Covered Member ID Venegas Member ID Guarantor Name 12/29/2013 1 *SELF PAY* Macy ramirezaret Bettye 10/23/2016 1 *SELF PAY* Macy rgaret Bettye 07/23/2017 1 *SELF PAY* Macy rgaret Bettye 07/15/2018 1 *SELF PAY* Macy ramirezaret Bettye 12/14/2019 1 *SELF PAY* Macy rgaret Bettye Notes Date Note Type Note Provider Name and Address Organization Details Recorded Time 12/29/2013 text/html 57 pound weight gain since last visit 1 year ago. Pt. has not been to office related to the fact that she [place] near [place]. Pt. denies pain, nausea, vomiting, acid reflux. .Pt. reports that she can eat anything she wants and has no restriction. Minimal exercise reported and she takes MVI on occasion. EILEEN Anand, [place], [address], [facility] 03/12/2014 13:00:38 10/23/2016 text/html Patient here for follow up. Last visit was 2.5 years ago. Patient denies any restriction and fullness. Patient reports to eating regular foods and has minimal exercise. Patient statees that her work shift has changed and she is now able to make good food choices and have time for exercise. Requesting for an adjustment. EILEEN Anand, [place], [address], [facility] 10/23/2016 14:44:38 07/23/2017 text/html patient complaining of vomiting and gerd symptoms. unable to keep fluids down. Patient's last visit was 10 months ago. EILEEN Anand, [place], [address], [facility] 07/29/2017 15:54:50 07/15/2018 text/html patient denies any nausea vomiting or pain. no GERD symptoms. minimal restriction and fullness. Patient has not followed up since last year. Patient has gained weight since. Patient would like to get lap band adjusted. Patient lives very far. EILEEN Anand, [place], [address], [facility] 08/04/2018 17:57:56 12/14/2019 text/html Patient her for lap band fup. REports on and off pain in the past few months. Patient states she is trying to eat better. Would like lap band checked. EILEEN Annad, [place], [address], [facility] 12/15/2019 15:39:06 OBGyn Episode No OBEpisode recorded.
--- OUTSIDE RECORDS SUMMARY | 2024-12-14 19:13 | XMS_ITS | CONTINUITY OF CARE DOCUMENT ---
Author Name lawrence bravo Address Unknown Organization [facility] Address [address] [place] [address] Phone [phone] Care Team Providers Care Can Doffer Name Role Phone lawrence bravo Unavailable Unavailable INSURANCE PROVIDERS Payer name Policy type / Coverage type [place] red green party ID [facility] [facility] Medicaid 0 [id number]
--- OUTSIDE RECORDS SUMMARY | 2024-12-14 19:13 | XMS_ITS | Clinical Summary ---
Author Organization [facility] Address [address] [place] [address] Care Team Providers Care Stamping Die Maker Bench Name Role Phone Camille Narvaez MD Unavailable [phone] Johnna Abbott MD Primary Care Provider Garret Curry MD Unavailable [phone] Jm Shafer MD Unavailable [phone] Source Comments [facility],non-owned Affiliates and Associated Physician Practices is amultiple site organization consisting of ambulatory clinics and hospital sitesin [place], [place], [place] and [place]. This disclosure is being madepursuant to the Care Everywhere program and may not contain all information available regarding this patient. Last updated 18.[facility] Allergies Active Allergy Reactions Criticality Noted Date Comments Codeine Vomiting 12/01/2021 Medications * Be aware that medications may not be up to date on this document. Alwaysverify current medications with the patient. Medication Sig Dispensed Refills Start Date End Date Status pantoprazole EC (Protonix) 40 MG tablet Take 1 (one) tablet by mouth once daily 30 tablet 5 01/22/2024 Active buPROPion XL 24hr (Wellbutrin-XL) 150 MG tabletIndications :Major Depressive Disorder Take 1 (one) tablet by mouth once daily Reasons: Major Depressive Disorder 90 tablet 3 05/18/2024 Active PARoxetine (Paxil) 20 MG tabletIndications :Major Depressive Disorder Take 1 (one) tablet by mouth once daily Reasons: Major Depressive Disorder 90 tablet 3 05/18/2024 Active lisinopril (Prinivil; Zestril) 20 MG tabletIndications :Hypertension Take 1 (one) tablet by mouth once daily Reasons: High Blood Pressure Disorder 90 tablet 3 05/18/2024 Active vitamin D, ergocalciferol, (Drisdol) 1.25 MG (83422 UT) capsuleIndication s:Vitamin D Deficiency Take 1 (one) capsule by mouth every 7 days Reasons: Vitamin D Deficiency 12 capsule 2024 Active acetaminophen (Tylenol) 500 MG tablet Take 2 (two) tablets by mouth every 4 hours as needed for Fever or Pain Maximum allowable Acetaminophen amount = 4 Grams (4000 mg) / 24 hours. Active Active Problems Problem Noted Date Diagnosed Date [...] 03/02/2021 Suspected COVID-19 virus infection 05/30/2020 05/16/2024 Encounters Date Type Department Care Team Description 11/30/2024 Telephone [facility] Management Services [address] [facility], [address] [place] [address] Garret Curry MD Pre Authorization (Lap hhr w/lynda gasatroplasty) 11/18/2024 9:40 AM ESTATE ADMINISTRATOR Office Visit [facility] - Family Medicine [address] [facility] [address] [place] [address] Gissel Higuera PA-C Well woman exam (Primary Dx); Wakes up during night 11/04/2024 10:00 AM ESTATE ADMINISTRATOR Office Visit [facility] Health Cancer Care [address] [address] [place] [phone] Jm Shafer MD Anemia, unspecified type (Primary Dx) 10/28/2024 Refill [facility] - Family Medicine [address] [facility] [address] [place] [address] Johnna Abbott MD Refill Request 10/19/2024 Orders Only [facility] [address], [address] [place] [address] Evelyn Conley MLT(ASCP) Anemia, unspecified type 10/08/2024 10:40 AM ESTATE ADMINISTRATOR Office Visit [facility] Services [address], [address] [place] [address] aGrret Curry MD Gastric stenosis (Primary Dx); Hiatal hernia from Last 3 Months Immunizations Name Administration Dates Next Due Covid Pfizer primary monoval ent 12+ yr 0.3mL Purple cap 01/10/2021,12/20/2020 TDAP (7yrs+) 05/18/2024 Family History Medical History Relation Name Comments Heart Failure Brother 1 shaheed CAD (Coronary Artery Disease) Brother 2 rajwinder Hypertension Father Sleep Disorder - Sleep apnea Father Hypertension Mother Relation Name Status Comments Brother 1 shaheed Alive Brother 2 rajwinder Other Father Mother Social History Tobacco Use Types Packs/Day Years [...] Recorded Patient Health Questionnaire-2 Score 0 11/04/2024 [facility] [place] [facility] - Occupational Stress [...] place to sleep or slept in a intermediate (including now)? No 01/21/2024 Sex and Gender Information Value Date Recorded Sex Assigned at Female 10/08/2024 10:18 AM ESTATE ADMINISTRATOR Gender Identity Female 10/08/2024 10:18 AM ESTATE ADMINISTRATOR Sexual Orientation Not on file Last Filed Vital Signs Vital Sign Reading Time Taken Comments Blood Pressure 128/80 11/18/2024 10:06 AM ESTATE ADMINISTRATOR Pulse 67 11/18/2024 10:06 AM ESTATE ADMINISTRATOR Temperature 36.4 C (97.5 F) 11/18/2024 10:06 AM ESTATE ADMINISTRATOR Respiratory Rate 18 11/04/2024 9:53 AM ESTATE ADMINISTRATOR Oxygen Saturation 100% 11/18/2024 10:06 AM ESTATE ADMINISTRATOR Inhaled Oxygen Concentration - - Weight 93.9 kg (207 lb) 11/18/2024 10:06 AM ESTATE ADMINISTRATOR Height 152.4 cm (5') 11/04/2024 9:53 AM ESTATE ADMINISTRATOR Body Mass Index 40.43 11/04/2024 9:53 AM ESTATE ADMINISTRATOR Plan of Treatment Upcoming Encounters Date Type Department Care Team (Late st Contact Info) Description 03/04/2025 2:00 PM CDT Documentation [facility] [id number] [place] [address] [address] [place] [address] 03/04/2025 2:20 PM CDT Office Visit [facility] [id number] [place] [address] [address] [place] [address] Jm Shafer [place] [id number] [place] [address] [address] [place] [address] Health Maintenance Due Date Last Done Comments COLOGUARD (AGES 45-75) - COLON CA SCREENING 1969 CT COLONOGRAPHY - COLON CA SCREENING 1969 FIT - COLON CA SCREENING 1969 FLEX SIG - COLON CA SCREENING 1969 MAMMOGRAM 1969 HIV SCREENING 1984 HEPATITIS C SCREENING 08/06/1987 HEPATITIS B VACCINE (1 of 3 - 19+ 3-dose series) 1988 PNEUMOCOCCAL VACCINE 50+ (1 of 1 - PCV) 2019 ZOSTER VACCINE (1 of 2) 2019 COVID-19 VACCINE (3 - season) 2024 01/10/2021, 12/20/2020 INFLUENZA VACCINE (#1) 2024 SCREENING FOR DIABETES 06/10/2027 , 01/22/2024, 01/21/2024, Additional history exists LIPID TESTING 06/27/2028 06/27/2023, 01/31/2021 PAP with HPV 11/18/2029 11/18/2024 COLON MONITORING 02/15/2031 02/15/2021, 02/15/2021 COLONOSCOPY - COLON CA SCREENING 02/15/2031 02/15/2021, 02/15/2021 Colorectal Cancer Screening 02/15/2031 DTAP/TDAP/TD VACCINES (2 - Td or Tdap) 05/18/2034 05/18/2024 DEPRESSION SCREENING Completed 11/04/2024, 05/18/2024, 06/26/2023, Additional history exists HIB VACCINE Aged Out No longer eligi ble based on patient's age to complete this topic HPV VACCINE Aged Out No longer eligi ble based on patient's age to complete this topic MENINGOCOCCAL (Group B) VACCINE Aged Out No longer eligible based on patient's age to complete this topic MENINGOCOCCAL VACCINE Aged Out No brent sully eligible based on patient's age to complete this topic Procedures Procedure Name Priority Date/Time Associated Diagnosis Comments PAP IG LB +HPV APTIMA REFLEX 16,18/45 Routine 11/18/2024 10:44 AM ESTATE ADMINISTRATOR Well woman exam CBC W AUTO DIFFERENTIAL (CANCER CARE) Routine 11/04/2024 9:46 AM ESTATE ADMINISTRATOR Anemia, unspecified type IRON + TRANSFERRIN PANEL Routine 11/04/2024 9:46 AM ESTATE ADMINISTRATOR Anemia, unspecified type VITAMIN B12 FOLATE PANEL Routine 11/04/2024 9:46 AM ESTATE ADMINISTRATOR Anemia, unspecified type FERRITIN Routine 11/04/2024 9:46 AM ESTATE ADMINISTRATOR Anemia, unspecified type COMPREHENSIVE METABOLIC PANEL Routine 06/10/2024 11:54 AM CDT Anemia, unspecified type LIPID PROFILE REFLEX LDL DIRECT Routine 06/27/2023 1:47 PM CDT Screening cholesterol level ENDOSCOPY, COLON, SCREENING Routine 02/15/2021 12:11 PM CDT from Last 3 Months or Most Recently Relevant to Health Maintenance Results * PAP IG LB +HPV APTIMA REFLEX 16,18/45 (11/18/2024 10:44 AM ESTATE ADMINISTRATOR) Diagnosis Comment [facility] ACCOUNT BILL Comment:NEGATIVE FOR INTRAEP ITHELIAL LESION OR MALIGNANCY. Specimen Adequacy Comment [facility] ACCOUNT BILL Comment: Satisfactory for evaluation. Endocervical and/or squamous metaplastic cells (endocervical component) are present. Clinician Provided ICD10 Comment [facility] ACCOUNT BILL Comment:Z01.419 Performed by Comment [facility] ACCOUNT BILL Comment:Guilherme Cheng totechnologist ([facility]) Comment . [facility] ACCOUNT BILL Note Comment [...] ENTIRE ENDOCERVIX / Unknown 11/18/2024 10:44 AM ESTATE ADMINISTRATOR 11/18/2024 Comment:Endocrvx Release to p Narrative [facility] ACCOUNT BILL - 11/22/2024 1:06 PM ESTATE ADMINISTRATOR [facility] [address] [place] [id number] Cms Expert: Fortino Fernandez MD, Phone: [phone] Performed at: - [address] [id number] Cms Expert: Mitzi Fung MD, Phone: [phone] Performed at: 03 - [address] [id number] Cms Expert: Mitzi Fung MD, Phone: [phone] Specimen Comment: [id number] Specimen Comment: Source.............Endocervix Specimen Comment: Other..............Post Menopausal Specimen Comment: No. of containers..01 ThinPrep Vial Gissel Higuera PA-C LAB - PATHOLOGY/CYTO LOGY ORDERABLES [facility] ACCOUNT BILL [address] [place] [address] * (ABNORMAL) CBC W AUTO DIFFERENTIAL (CANCER CARE) (11/04/2024 9:46 AM ESTATE ADMINISTRATOR) WBC 5.6 4.4 - 10.7 x10E9/L 11/04/2024 9:52 AM ESTATE ADMINISTRATOR [facility] Neutrophils % 61.3 44.0 - 73.0 % 11/04/2024 9:52 AM ESTATE ADMINISTRATOR [facility] Lymphocytes % 26.6 20.0 - 43.0 % 11/04/2024 9:52 AM ESTATE ADMINISTRATOR [facility] Monocytes % 8.7 5.0 - 13.0 % 11/04/2024 9:52 AM ESTATE ADMINISTRATOR [facility] Eosinophils % 2.9 0.0 - 6.0 % 11/04/2024 9:52 AM ESTATE ADMINISTRATOR [facility] Basophils % 0.5 0.0 - 2.0 % 11/04/2024 9:52 AM ESTATE ADMINISTRATOR [facility] Neutrophil Absolute 3.44 2.01 - 7.14 x10E9/L 11/04/2024 9:52 AM ESTATE ADMINISTRATOR [facility] Lymphocytes Absolute 1.49 1.07 - 3.94 x10E9/L 11/04/2024 9:52 AM ESTATE ADMINISTRATOR [facility] Monocytes Absolute 0.49 0.26 - 1.07 x10E9/L 11/04/2024 9:52 AM ESTATE ADMINISTRATOR [facility] Eosinophils Absolute 0.16 0 - 0.47 x10E9/L 11/04/2024 9:52 AM ESTATE ADMINISTRATOR [facility] Basophils Absolute 0.03 0 - 0.08 x10E9/L 11/04/2024 9:52 AM ESTATE ADMINISTRATOR [facility] RBC 3.64(L) 3.80 - 5.20 x10E12/L 11/04/2024 9:52 AM ESTATE ADMINISTRATOR [facility] Hemoglobin 11.1(L) 12.0 - 15.6 gm/dL 11/04/2024 9:52 AM ESTATE ADMINISTRATOR [facility] Hematocrit 35.5(L) 35.9 - 45.5 % 11/04/2024 9:52 AM ESTATE ADMINISTRATOR [facility] MCV 97.5 80.7 - 98.3 fl 11/04/2024 9:52 AM ESTATE ADMINISTRATOR [facility] MCH 30.5 26.7 - 34.0 pg 11/04/2024 9:52 AM [facility] MCHC 31.3 30.8 - 35.9 gm/dL 11/04/2024 9:52 AM [facility] RDW-CV 14.1 12.1 - 14.9 % 11/04/2024 9:52 AM [facility] Platelet Count 235 153 - 416 x10E9/L 11/04/2024 9:52 AM ESTATE ADMINISTRATOR [facility] MPV 10.8 9.4 - 12.9 fl 11/04/2024 9:52 AM [facility] Blood BLOOD SPECIMEN / Unknown 11/04/2024 9:46 AM ESTATE ADMINISTRATOR 11/04/2024 9:46 AM ESTATE ADMINISTRATOR Jm Shafer MD LAB - HEMATOLOGY ORD ERABLES [facility] [address] [address] * (ABNORMAL) VITAMIN B12 FOLATE PANEL (11/04/2024 9:46 AM ESTATE ADMINISTRATOR) Pathologist [facility] Vitamin B12 >2000(H) 213 - 816 pg/mL [facility] ACCOUNT BILL Folate 14.7 7.0 - 31.4 ng/mL [facility] ACCOUNT BILL Blood BLOOD SPECIMEN / Unknown 11/04/2024 9:46 AM ESTATE ADMINISTRATOR 11/04/2024 Comment:Blood Release to pat i Narrative [facility] ACCOUNT BILL - 11/04/2024 6:07 PM ESTATE ADMINISTRATOR Performed at: [address] [place] [id number] [place] [address] [place] [id number] Cms Expert: Lele [facility], Phone: [phone] Jm Shafer MD LAB - CHEMISTRY ORDE RABLES [facility] ACCOUNT BILL [address] [place] [address] * IRON + TRANSFERRIN PANEL (11/04/2024 9:46 AM ESTATE ADMINISTRATOR) Iron 117 40 - 150 ug/dL [facility] ACCOUNT BILL Transferrin 308 174 - 382 mg/dL [facility] ACCOUNT BILL Comment: TIBC CALCULATED BLOOD (SSM) 385 ug/dL 240-450 SATURATION % BLOOD ([facility]) 30 % 20-50 Blood BLOOD SPECIMEN / Unknown 11/04/2024 9:46 AM ESTATE ADMINISTRATOR 11/04/2024 Comment:Blood Release to pat i Narrative [facility] ACCOUNT BILL - 11/04/2024 6:07 PM ESTATE ADMINISTRATOR Performed at: [address] [place] [address] [place] [id number] Cms Expert: Lele [facility], Phone: [phone] Jm Shafer MD LAB - CHEMISTRY ORDJamin MANUEL Performing Organization Address [facility] Co de Phone Number [facility] ACCOUNT BILL [address] [place] [address] * FERRITIN (11/04/2024 9:46 AM ESTATE ADMINISTRATOR) Ferritin 132 5 - 204 ng/mL [facility] ACCOUNT BILL Blood BLOOD SPECIMEN / Unknown 11/04/2024 9:46 AM ESTATE ADMINISTRATOR 11/04/2024 Comment:Blood Release to pat i Narrative [facility] ACCOUNT BILL - 11/04/2024 6:07 PM ESTATE ADMINISTRATOR Performed at: [place] [address] [place] [id number] Cms Expert: Lele [facility], Phone: [phone] Jm Shafer MD LAB - CHEMISTRY ORDJamin MANUEL [facility] ACCOUNT BILL [address] [place] [address] * (ABNORMAL) COMPREHENSIVE METABOLIC PANEL (06/10/2024 11:54 AM CDT) Glucose 88 70 - 105 mg/dL [facility] [...] Resulting Agency Comment Lab Testing performed at: [facility] [id number] [place] [address] [place] [phone] Jm Shafer MD LAB - CHEMISTRY FELISHA MANUEL [facility] ACCOUNT BILL [address] [place] [address] * (ABNORMAL) LIPID PROFILE REFLEX LDL DIRECT [...] Agency Comment Lab Testing performed at: [facility] [address] [facility] [id number] Gissel Higuera PA-C LAB - CHEMISTRY FELISHA MANUEL [facility] ACCOUNT BILL [address] [place] [address] * ENDOSCOPY, COLON, SCREENING (02/15/2021 12:11 PM [...] colon cancer Procedure Code(s): --- Professional --- 62516, Colonoscopy, flexible; with biopsy, single or multiple --- Technical --- 48541, Colonoscopy, flexible; with biopsy, single or multiple Diagnosis Code(s): --- Professional --- K64.8, Other hemorrhoids K52.9, Noninfective gastroenteritis and colitis, unspecified K57.30, Diverticulosis of large intestine without perforation or abscess without bleeding --- Technical --- K64.8, Other hemorrhoids K52.9, Noninfective gastroenteritis and colitis, unspecified K57.30, Diverticulosis of large intestine without perforation or abscess without bleeding CPT copyright 2019 [employer]. All rights reserved. The codes documented in this report are preliminary and upon speech clinician review may be revised to meet current compliance requirements. Dr. Lory Narvaez MD Camille Narvaez MD 02/15/2021 1:43:26 PM Number of Addenda: 0 Note Initiated On: 02/15/2021 12:11 PM [facility] ENDOSCOPY 02/15/2021 12:1 1 PM CDT Camille Narvaez MD GI PROCEDURE ORDERAB LES [facility] [place] [address] from Last 3 Months or Most Recently Relevant to Health Maintenance Advance Directives * Full Code (Latest Code Status on File) Date Activated Date Inactivated Comments 01/21/2024 9:45 AM 01/22/2024 7:35 PM * Full Code Date Activated Date Inactivated Comments 05/30/2020 12:34 PM 06/01/2020 2:33 PM Care Teams Stamping Die Maker Bench Relationship Specialty Start Date End Date Johnna Abbott MD [address] [facility] [address] [place] [address] PCP - General Family Medicine 11/20/23 Camille Narvaez MD Law Instructor Gastroenterology 01/03/22 [place] [address] [facility] [address] [place] [address] General Surgery 05/18/24 [place] [address] [facility] [address] [address] [place] [id number] Raw Stock Machine Feeder/Oncologist Hematology and Oncology 06/10/24
--- OUTSIDE RECORDS SUMMARY | 2024-12-14 19:13 | XMS_ITS | Referral Summary ---
Author Organization [facility] Address [address] [place] [address] Care Team Providers Care Plastic Parts Fabricator Name Role Phone Camille Narvaez MD Unavailable [phone] Johnna Abbott MD Primary Care Provider [phone] Garret Curry MD Unavailable [phone] Jm Shafer MD Unavailable [phone] Source Comments [facility],non-owned Affiliates and Associated Physician Practices is amultiple site organization consisting of ambulatory clinics and hospital sitesin [place], [place], [place] and [place]. This disclosure is being madepursuant to the Care Everywhere program and may not contain all information available regarding this patient. Last updated 18.[facility] Encounters Date Type Department Care Team Description 11/30/2024 Telephone [facility] Weight Management Services [address] [facility], [facility] [address] [place] [address] Garret Curry MD Pre Authorization (Lap hhr w/lynda gasatroplasty) 11/18/2024 9:40 AM MANAGER UTILITIES Office Visit [facility] - Family Medicine [address] [facility] [address] [place] [address] Gissel Higuera PA-C Well woman exam (Primary Dx); Wakes up during night 11/04/2024 10:00 AM MANAGER UTILITIES Office Visit [facility] Cancer [facility] [address] [facility] [address] [place] [address] Jm Shafer MD Anemia, unspecified type (Primary Dx) 10/28/2024 Refill [facility] - Family Medicine [address] [facility] [address] [place] [address] Johnna Abbott MD Refill Request 10/19/2024 Orders Only [facility] [place] [address] [facility], [address] [place] [id number] Evelyn Conley, FIRST AID NURSE(ASCP) Anemia, unspecified type 10/08/2024 10:40 AM MANAGER UTILITIES Office Visit [facility] Management Services [address] [facility], [address] [place] [address] Garret Curry MD Gastric stenosis (Primary Dx); Hiatal hernia from Last 3 Months Allergies Active Allergy Reactions Criticality Noted Date [...] Active vitamin D, ergocalciferol, (Drisdol) 1.25 MG (01104 UT) capsuleIndication s:Vitamin D Deficiency Take 1 [...] Suspected COVID-19 virus infection 05/30/2020 05/16/2024 Immunizations Name Administration Dates Next Due Covid Pfizer primary monoval ent 12+ yr 0.3mL Purple cap 01/10/2021,12/20/2020 TDAP (7yrs+) 05/18/2024 Social History Tobacco Use Types Packs/Day Years [...] Recorded Patient Health Questionnaire-2 Score 0 11/04/2024 [facility] [place] of Occupat ional Health - Occupational Stress [...] place to sleep or slept in a fci (including now)? No 01/21/2024 Sex and Gender Information Value Date Recorded Sex Assigned at Female 10/08/2024 10:18 AM MANAGER UTILITIES Gender Identity Female 10/08/2024 10:18 AM MANAGER UTILITIES Sexual Orientation Not on file Last Filed Vital Signs Vital Sign Reading Time Taken Comments Blood Pressure 128/80 11/18/2024 10:06 AM MANAGER UTILITIES Pulse 67 11/18/2024 10:06 AM MANAGER UTILITIES Temperature 36.4 C (97.5 F) 11/18/2024 10:06 AM MANAGER UTILITIES Respiratory Rate 18 11/04/2024 9:53 AM MANAGER UTILITIES Oxygen Saturation 100% 11/18/2024 10:06 AM MANAGER UTILITIES Inhaled Oxygen Concentration - - Weight 93.9 kg (207 lb) 11/18/2024 10:06 AM MANAGER UTILITIES Height 152.4 cm (5') 11/04/2024 9:53 AM MANAGER UTILITIES Body Mass Index 40.43 11/04/2024 9:53 AM MANAGER UTILITIES Functional Status Functional Status Response Date of [...] person have difficulty concentrating/remembering/making decisions? No 01/21/2024 Plan of Treatment Upcoming Encounters Date Type Department Care Team (Late st Contact Info) Description 03/04/2025 2:00 PM CDT Documentation [facility] [address] [place] [address] [address] [place] [address] 03/04/2025 2:20 PM CDT Office Visit [facility] Cancer [facility] [address] [place] [address] [address] [place] [address] [place] [id number] [place] [address] Procedures Procedure Name Priority Date/Time Associated Diagnosis Comments PAP IG LB +HPV APTIMA REFLEX ,18/45 Routine 11/18/2024 10:44 AM MANAGER UTILITIES Well woman exam CBC W AUTO DIFFERENTIAL (CANCER CARE) Routine 11/04/2024 9:46 AM MANAGER UTILITIES Anemia, unspecified type IRON + TRANSFERRIN PANEL Routine 11/04/2024 9:46 AM MANAGER UTILITIES Anemia, unspecified type VITAMIN B12 FOLATE PANEL Routine 11/04/2024 9:46 AM MANAGER UTILITIES Anemia, unspecified type FERRITIN Routine 11/04/2024 9:46 AM MANAGER UTILITIES Anemia, unspecified type COMPREHENSIVE METABOLIC PANEL Routine 06/10/2024 11:54 AM CDT Anemia, unspecified type LIPID PROFILE REFLEX LDL DIRECT Routine 06/27/2023 1:47 PM CDT Screening cholesterol level ENDOSCOPY, COLON, SCREENING Routine 02/15/2021 12:11 PM CDT from Last 3 Months or Most Recently Relevant to Health Maintenance Results * PAP IG LB +HPV APTIMA REFLEX 16,18/45 (11/18/2024 10:44 AM MANAGER UTILITIES) Diagnosis Comment [facility] ACCOUNT BILL Comment:NEGATIVE FOR [...] ENTIRE ENDOCERVIX / Unknown 11/18/2024 10:44 AM MANAGER UTILITIES 11/18/2024 Comment:Endocrvx Release to p Narrative [facility] ACCOUNT BILL - 11/22/2024 1:06 PM MANAGER UTILITIES Performed at: - [facility] [address] [place] [id number] Lean Process Deployment Consultant: Fortino Fernandez MD, Phone: [phone] Performed at: - Lab[address] [id number] Lean Process Deployment Consultant: Mitzi Fung MD, Phone: [phone] Performed at: - [address] [id number] Lean Process Deployment Consultant: Mitzi Fung MD, Phone: [phone] Specimen Comment: [id number] Specimen Comment: Source.............Endocervix Specimen Comment: Other..............Post Menopausal Specimen Comment: No. of containers..01 ThinPrep Vial Gissel Higuera PA-C LAB - PATHOLOGY/CYTO LOGY ORDERABLES [facility] ACCOUNT BILL [address] [place] [address] * (ABNORMAL) CBC W AUTO DIFFERENTIAL (CANCER CARE) (11/04/2024 9:46 AM MANAGER UTILITIES) WBC 5.6 4.4 - 10.7 x10E9/L 11/04/2024 9:52 AM MANAGER UTILITIES [facility] Neutrophils % 61.3 44.0 - 73.0 % 11/04/2024 9:52 AM MANAGER UTILITIES [facility] Lymphocytes % 26.6 20.0 - 43.0 % 11/04/2024 9:52 AM MANAGER UTILITIES [facility] Monocytes % 8.7 5.0 - 13.0 % 11/04/2024 9:52 AM MANAGER UTILITIES [facility] Eosinophils % 2.9 0.0 - 6.0 % 11/04/2024 9:52 AM MANAGER UTILITIES [facility] Basophils % 0.5 0.0 - 2.0 % 11/04/2024 9:52 AM MANAGER UTILITIES [facility] Neutrophil Absolute 3.44 2.01 - 7.14 x10E9/L 11/04/2024 9:52 AM MANAGER UTILITIES [facility] Lymphocytes Absolute 1.49 1.07 - 3.94 x10E9/L 11/04/2024 9:52 AM MANAGER UTILITIES [facility] Monocytes Absolute 0.49 0.26 - 1.07 x10E9/L 11/04/2024 9:52 AM MANAGER UTILITIES [facility] Eosinophils Absolute 0.16 0 - 0.47 x10E9/L 11/04/2024 9:52 AM MANAGER UTILITIES [facility] Basophils Absolute 0.03 0 - 0.08 x10E9/L 11/04/2024 9:52 AM MANAGER UTILITIES [facility] RBC 3.64(L) 3.80 - 5.20 x10E12/L 11/04/2024 9:52 AM MANAGER UTILITIES [facility] Hemoglobin 11.1(L) 12.0 - 15.6 gm/dL 11/04/2024 9:52 AM MANAGER UTILITIES [facility] Hematocrit 35.5(L) 35.9 - 45.5 % 11/04/2024 9:52 AM MANAGER UTILITIES [facility] MCV 97.5 80.7 - 98.3 fl 11/04/2024 9:52 AM MANAGER UTILITIES [facility] MCH 30.5 26.7 - 34.0 pg 11/04/2024 9:52 AM MANAGER UTILITIES [facility] MCHC 31.3 30.8 - 35.9 gm/dL 11/04/2024 9:52 AM [facility] RDW-CV 14.1 12.1 - 14.9 % 11/04/2024 9:52 AM [facility] Platelet Count 235 153 - 416 x10E9/L 11/04/2024 9:52 AM [facility] MPV 10.8 9.4 - 12.9 fl 11/04/2024 9:52 AM [facility] Blood BLOOD SPECIMEN / Unknown 11/04/2024 9:46 AM MANAGER UTILITIES 11/04/2024 9:46 AM MANAGER UTILITIES Jm Shafer MD LAB - HEMATOLOGY ORD ERABLES [facility] [address] [address] * (ABNORMAL) VITAMIN B12 FOLATE PANEL (11/04/2024 9:46 AM MANAGER UTILITIES) Vitamin B12 >2000(H) 213 - 816 pg/mL [facility] ACCOUNT BILL Folate 14.7 7.0 - 31.4 ng/mL [facility] ACCOUNT BILL Blood BLOOD SPECIMEN / Unknown 11/04/2024 9:46 AM MANAGER UTILITIES 11/04/2024 Comment:Blood Release to pat i Narrative [facility] ACCOUNT BILL - 11/04/2024 6:07 PM MANAGER UTILITIES Performed at: [place] [address], [place] [id number] Lean Process Deployment Consultant: Lele Hartman [facility], Phone: [phone] Jm Shafer MD LAB - CHEMISTRY FELISHA MANUEL [facility] ACCOUNT BILL [address] [place] [address] * IRON + TRANSFERRIN PANEL (11/04/2024 9:46 AM MANAGER UTILITIES) Iron 117 40 - 150 ug/dL [facility] ACCOUNT BILL Transferrin 308 174 - 382 mg/dL [facility] ACCOUNT BILL Comment: TIBC CALCULATED BLOOD ([facility]) 385 ug/dL 240-450 SATURATION % BLOOD ([facility]) 30 % 20-50 Blood BLOOD SPECIMEN / Unknown 11/04/2024 9:46 AM MANAGER UTILITIES 11/04/2024 Comment:Blood Release to pat i Narrative [facility] ACCOUNT BILL - 11/04/2024 6:07 PM MANAGER UTILITIES Performed at: [place] [address], [place] [id number] Lean Process Deployment Consultant: Lele Hartman [facility], Phone: [phone] Jm Shafer MD LAB - CHEMISTRY FELISHA MANUEL Performing Organization Address City/[facility]/ZIP Co de Phone Number [facility] ACCOUNT BILL [address] [place] [address] * FERRITIN (11/04/2024 9:46 AM MANAGER UTILITIES) Ferritin 132 5 - 204 ng/mL [facility] ACCOUNT BILL Blood BLOOD SPECIMEN / Unknown 11/04/2024 9:46 AM MANAGER UTILITIES 11/04/2024 Comment:Blood Release to pat i Narrative [facility] ACCOUNT BILL - 11/04/2024 6:07 PM MANAGER UTILITIES Performed at: - [place] [address], [place] [id number] Lean Process Deployment Consultant: Lele Hartman [facility], Phone: [phone] Jm Shafer MD LAB - CHEMISTRY FELISHA MANUEL [facility] ACCOUNT BILL [address] [place] [address] * (ABNORMAL) COMPREHENSIVE METABOLIC PANEL (06/10/2024 11:54 [...] Resulting Agency Comment Lab Testing performed at: [place] [address] [address] [place] [id number] Jm Shafer MD LAB - CHEMISTRY FELISHA MANUEL [facility] ACCOUNT BILL [address] [place] [address] * (ABNORMAL) LIPID PROFILE REFLEX LDL DIRECT [...] Resulting Agency Comment Lab Testing performed at: [facility] [address] [facility] [id number] Gissel Higuera PA-C LAB - CHEMISTRY FELISHA MANUEL [facility] ACCOUNT BILL [address] [place] [address] * ENDOSCOPY, COLON, SCREENING (02/15/2021 12:11 PM [...] colon cancer Procedure Code(s): --- Professional --- 02853, Colonoscopy, flexible; with biopsy, single or multiple --- Technical --- 22864, Colonoscopy, flexible; with biopsy, single or multiple Diagnosis Code(s): --- Professional --- K64.8, Other hemorrhoids K52.9, Noninfective gastroenteritis and colitis, unspecified K57.30, Diverticulosis of large intestine without perforation or abscess without bleeding --- Technical --- K64.8, Other hemorrhoids K52.9, Noninfective gastroenteritis and colitis, unspecified K57.30, Diverticulosis of large intestine without perforation or abscess without bleeding CPT copyright 2019 [employer]. All rights reserved. The codes documented in this report are preliminary and upon major gifts director review may be revised to meet current compliance requirements. Dr. Lory Narvaez MD Camille Narvaez MD 02/15/2021 1:43:26 PM Number of Addenda: 0 Note Initiated On: 02/15/2021 12:11 PM [facility] ENDOSCOPY 02/15/2021 12:1 1 PM CDT Camille Narvaez MD GI PROCEDURE ORDERAB [place] [address] from Last 3 Months or Most Recently Relevant to Health Maintenance Administered Medications Advance Directives * Full Code (Latest Code Status on File) Date Activated Date Inactivated Comments 01/21/2024 9:45 AM 01/22/2024 7:35 PM * Full Code Date Activated Date Inactivated Comments 05/30/2020 12:34 PM 06/01/2020 2:33 PM Care Teams Plastic Parts Fabricator Relationship Specialty Start Date End Date Johnna Abbott MD [address] [facility] [address] [place] [address] PCP - General Family Medicine 11/20/23 Camille Narvaez MD Health Education Aide Gastroenterology 01/03/22 [place] [address] [facility] [address] [place] [address] General Surgery 05/18/24 [place] [address] [address] Wellness Health Coach/Oncologist Hematology and Oncology 06/10/24
--- NOTE | 2024-12-15 02:47 | PC.NURSE ---
Call x2 for room assignment, no answer.
--- OUTSIDE RECORDS SUMMARY | 2024-12-15 02:55 | XMS_ITS | Patient Health Summary ---
Author Organization [facility] Address [address] [place] [address] Care Team Providers Care Exchange Mechanic Name Role Phone Camille Narvaez MD Unavailable [phone] Johnna Abbott MD Primary Care Provider [phone] Garret Curry MD Unavailable [phone] Jm Shafer MD Unavailable [phone] Note from [facility],non-owned Affiliates and Associated Physician Practices is amultiple site organization consisting of ambulatory clinics and hospital sitesin [place], [place], [place] and [place]. This disclosure is being madepursuant to the Care Everywhere program and may not contain all information available regarding this patient. Last updated 18.[facility] Allergies * Codeine(Vomiting) Medications * Be [...] * vitamin D, ergocalciferol, (Drisdol) 1.25 MG (88921 UT) capsule(Started 2024) Take 1 (one) capsule [...] Recorded Patient Health Questionnaire-2 Score 0 11/04/2024 [facility] - Occupational Stress [...] place to sleep or slept in a group home (including now)? No 01/21/2024 Sex and Gender Information Value Date Recorded Sex Assigned at Female 10/08/2024 10:18 AM APPRENTICE PAINTER NECKTIES Gender Identity Female 10/08/2024 10:18 AM APPRENTICE PAINTER NECKTIES Sexual Orientation Not on file Last Filed Vital Signs Vital Sign Reading Time Taken Comments Blood Pressure 128/80 11/18/2024 10:06 AM APPRENTICE PAINTER NECKTIES Pulse 67 11/18/2024 10:06 AM APPRENTICE PAINTER NECKTIES Temperature 36.4 C (97.5 F) 11/18/2024 10:06 AM APPRENTICE PAINTER NECKTIES Respiratory Rate 18 11/04/2024 9:53 AM APPRENTICE PAINTER NECKTIES Oxygen Saturation 100% 11/18/2024 10:06 AM APPRENTICE PAINTER NECKTIES Inhaled Oxygen Concentration - - Weight 93.9 kg (207 lb) 11/18/2024 10:06 AM APPRENTICE PAINTER NECKTIES Height 152.4 cm (5') 11/04/2024 9:53 AM APPRENTICE PAINTER NECKTIES Body Mass Index 40.43 11/04/2024 9:53 AM APPRENTICE PAINTER NECKTIES Procedures * PAP IG LB +HPV APTIMA [...] 06/26/2024) Performed for Esophagitis, Hiatal hernia * IN ED EGD FLEX TRANSORAL DX(Performed 06/26/2024) * [...] 01/21/2024) * ENDOTRACHEAL TUBE NOTE(Performed 01/21/2024) * IN LAP RMVL GASTR ADJ ALL PARTS(Performed 01/21/2024) * EKG 12-LEAD(Performed 01/21/2024) Performed for Pre-op examination * PATHOLOGY TISSUE EXAM (STL)(Performed 11/18/2023) Performed for Diagnosis deferred * IN ED EGD FLEX TRANSORAL DX(Performed 11/18/2023) * [...] (STL)(Performed 12/01/2021) Performed for Diagnosis deferred * IN ED EGD FLEX TRANSORAL DX(Performed 12/01/2021) * [...] Diagnosis unknown * COLONOSCOPY SCREEN(Performed 02/15/2021) * IN ED EGD FLEX TRANSORAL DX(Performed 02/15/2021) * [...] +HPV APTIMA REFLEX 16,18/45 (11/18/2024 10:44 AM APPRENTICE PAINTER NECKTIES) Diagnosis Comment [facility] ACCOUNT BILL Comment:NEGATIVE FOR [...] ENTIRE ENDOCERVIX / Unknown 11/18/2024 10:44 AM APPRENTICE PAINTER NECKTIES 11/18/2024 Comment:Endocrvx Release to p Narrative [facility] ACCOUNT BILL - 11/22/2024 1:06 PM APPRENTICE PAINTER NECKTIES Performed at: - [facility] [address] [place] [id number] Entry Level Accounting Clerk: Fortino Fernandez MD, Phone: [phone] Performed at: - [address] [id number] Entry Level Accounting Clerk: Mitzi Fung MD, Phone: [phone] Performed at: - [address] [id number] Entry Level Accounting Clerk: Mitzi Fung MD, Phone: [phone] Specimen Comment: [id number] Specimen Comment: Source.............Endocervix Specimen Comment: Other..............Post Menopausal Specimen Comment: No. of containers..01 ThinPrep Vial Gissel Higuera PA-C LAB - PATHOLOGY/CYTO LOGY ORDERABLES [facility] ACCOUNT BILL [address] [place] [address] * (ABNORMAL) CBC W AUTO DIFFERENTIAL (CANCER CARE) (11/04/2024 9:46 AM APPRENTICE PAINTER NECKTIES) Only the most recent of2 resultswithin the time period is included. WBC 5.6 4.4 - 10.7 x10E9/L 11/04/2024 9:52 AM APPRENTICE PAINTER NECKTIES [facility] Neutrophils % 61.3 44.0 - 73.0 % 11/04/2024 9:52 AM APPRENTICE PAINTER NECKTIES [facility] Lymphocytes % 26.6 20.0 - 43.0 % 11/04/2024 9:52 AM APPRENTICE PAINTER NECKTIES [facility] Monocytes % 8.7 5.0 - 13.0 % 11/04/2024 9:52 AM APPRENTICE PAINTER NECKTIES [facility] Eosinophils % 2.9 0.0 - 6.0 % 11/04/2024 9:52 AM APPRENTICE PAINTER NECKTIES [facility] Basophils % 0.5 0.0 - 2.0 % 11/04/2024 9:52 AM APPRENTICE PAINTER NECKTIES [facility] Neutrophil Absolute 3.44 2.01 - 7.14 x10E9/L 11/04/2024 9:52 AM APPRENTICE PAINTER NECKTIES [facility] Lymphocytes Absolute 1.49 1.07 - 3.94 x10E9/L 11/04/2024 9:52 AM APPRENTICE PAINTER NECKTIES [facility] Monocytes Absolute 0.49 0.26 - 1.07 x10E9/L 11/04/2024 9:52 AM APPRENTICE PAINTER NECKTIES [facility] Eosinophils Absolute 0.16 0 - 0.47 x10E9/L 11/04/2024 9:52 AM APPRENTICE PAINTER NECKTIES [facility] Basophils Absolute 0.03 0 - 0.08 x10E9/L 11/04/2024 9:52 AM APPRENTICE PAINTER NECKTIES [facility] RBC 3.64(L) 3.80 - 5.20 x10E12/L 11/04/2024 9:52 AM APPRENTICE PAINTER NECKTIES [facility] Hemoglobin 11.1(L) 12.0 - 15.6 gm/dL 11/04/2024 9:52 AM APPRENTICE PAINTER NECKTIES [facility] Hematocrit 35.5(L) 35.9 - 45.5 % 11/04/2024 9:52 AM APPRENTICE PAINTER NECKTIES [facility] MCV 97.5 80.7 - 98.3 fl 11/04/2024 9:52 AM APPRENTICE PAINTER NECKTIES [facility] MCH 30.5 26.7 - 34.0 pg 11/04/2024 9:52 AM APPRENTICE PAINTER NECKTIES [facility] MCHC 31.3 30.8 - 35.9 gm/dL 11/04/2024 9:52 AM APPRENTICE PAINTER NECKTIES [facility] RDW-CV 14.1 12.1 - 14.9 % 11/04/2024 9:52 AM APPRENTICE PAINTER NECKTIES [facility] Platelet Count 235 153 - 416 x10E9/L 11/04/2024 9:52 AM APPRENTICE PAINTER NECKTIES [facility] MPV 10.8 9.4 - 12.9 fl 11/04/2024 9:52 AM APPRENTICE PAINTER NECKTIES [facility] Blood BLOOD SPECIMEN / Unknown 11/04/2024 9:46 AM APPRENTICE PAINTER NECKTIES 11/04/2024 9:46 AM APPRENTICE PAINTER NECKTIES Jm Shafer MD LAB - HEMATOLOGY ORD ERABLES [facility] [id number] [address] * (ABNORMAL) VITAMIN B12 FOLATE PANEL (11/04/2024 9:46 AM APPRENTICE PAINTER NECKTIES) Only the most recent of2 resultswithin the time period is included. Vitamin B12 >2000(H) 213 - 816 pg/mL [facility] ACCOUNT BILL Folate 14.7 7.0 - 31.4 ng/mL [facility] ACCOUNT BILL Blood BLOOD SPECIMEN / Unknown 11/04/2024 9:46 AM APPRENTICE PAINTER NECKTIES 11/04/2024 Comment:Blood Release to pat i Narrative [facility] ACCOUNT BILL - 11/04/2024 6:07 PM APPRENTICE PAINTER NECKTIES Performed at: 01 - [facility] [address] [place], [place] [id number] Entry Level Accounting Clerk: Lele Hartman [facility], Phone: [phone] Jm Shafer MD LAB - CHEMISTRY ORDE MAR [facility] ACCOUNT BILL [address] [place] [address] * IRON + TRANSFERRIN PANEL (11/04/2024 9:46 AM APPRENTICE PAINTER NECKTIES) Only the most recent of2 resultswithin the time period is included. Iron 117 40 - 150 ug/dL [facility] ACCOUNT BILL Transferrin 308 174 - 382 mg/dL [facility] ACCOUNT BILL Comment: TIBC CALCULATED BLOOD (SSM) 385 ug/dL 240-450 SATURATION % BLOOD (SSM) 30 % 20-50 Blood BLOOD SPECIMEN / Unknown 11/04/2024 9:46 AM APPRENTICE PAINTER NECKTIES 11/04/2024 Comment:Blood Release to pat i Narrative [facility] ACCOUNT BILL - 11/04/2024 6:07 PM APPRENTICE PAINTER NECKTIES Performed at: [address] [place], [place] [id number] [address] [place] [id number] Entry Level Accounting Clerk: Lele Hartman [facility], Phone: [phone] Jm Shafer MD LAB - CHEMISTRY FELISHA MANUEL Performing Organization Address [facility] Co de Phone Number [facility] ACCOUNT BILL [address] [place] [address] * FERRITIN (11/04/2024 9:46 AM APPRENTICE PAINTER NECKTIES) Only the most recent of3 resultswithin the time period is included. Ferritin 132 5 - 204 ng/mL [facility] ACCOUNT BILL Blood BLOOD SPECIMEN / Unknown 11/04/2024 9:46 AM APPRENTICE PAINTER NECKTIES 11/04/2024 Comment:Blood Release to pat i Narrative [facility] ACCOUNT BILL - 11/04/2024 6:07 PM APPRENTICE PAINTER NECKTIES Performed at: [address] [place] [address] [place] [id number] Entry Level Accounting Clerk: Lele Hartman [facility], Phone: [phone] Jm Shafer MD LAB - CHEMISTRY FELISHA MANUEL Performing Organization Address [facility] Co de Phone Number [facility] ACCOUNT BILL [address] [place] [address] * XR Knee Right 4Vw or More (09/10/2024 8:56 AM APPRENTICE PAINTER NECKTIES) Narrative [facility] - 09/10/2024 8:57 AM APPRENTICE PAINTER NECKTIES For details of this study, please see the providers note. Win Gallo DO DIAGNOSTIC IMAGING O RDERABLES Performing Organization Address City/[facility] Co de Phone Number [facility] * HELICOBACTER PYLORI UREASE (STL) (06/26/2024 9:08 AM CDT) Only the most recent of2 resultswithin the time period is included. Helicobacter pylori Urease Initial Negative Negative 06/27/2024 9:12 AM CDT [facility] Helicobacter pylori Urease Final Negative Negative 06/27/2024 9:12 AM CDT [facility] Microbiology GASTRIC ANTRAL BIOPSY SPECIMEN / Unknown 06/26/2024 9:08 AM CDT 06/26/2024 12:38 PM CDT Garret Curry MD LAB - MICROBIOLOGY O RDERABLES [facility] [address] [place] [address] * EGD (06/26/2024 8:04 AM [...] present medications. Procedure Code(s): --- Professional --- 20775, Esophagogastroduod enoscopy, flexible, transoral; with biopsy, single or multiple --- Technical --- 63026, Esophagogastroduod enoscopy, flexible, transoral; with biopsy, single [...] Dysphagia, unspecified R12, Heartburn CPT copyright 2020 [employer]. All rights reserved. The codes documented in this report are preliminary and upon president and chief commercial officer review may be revised to meet current compliance requirements. _ Garret Curry MD 06/26/2024 9:11:14 AM Number of Addenda: 0 Note Initiated On: 06/26/2024 8:04 AM [facility] 06/26/2024 8:04 AM CDT Narrative Procedure Note Garret Curry MD - 06/26/2024 9:13 AM CDT PLAN: F/u ANA F/u in the office to discuss hiatal hernia repair Garret Curry MD GI PROCEDURE ORDERAB LES [facility] [place] [address] * (ABNORMAL) PROTEIN ELECTRO+JOVITA+FREE LIGHT CHAINS (06/10/2024 [...] 0.0 - 0.4 g/dL [facility] ACCOUNT BILL Sbijw-0-Lphdiiqm 0.8 0.4 - 1.0 g/dL [facility] ACCOUNT [...] scan will follow via computer, mail, or director general delivery. Free [place] Light Chains 28.5(H) 3.3 - 19.4 mg/L [facility] ACCOUNT BILL Free Lambda Light Chains 27.4(H) 5.7 - 26.3 mg/L [facility] ACCOUNT BILL [place]/Lambda Ratio 1.04 0.26 - 1.65 [facility] ACCOUNT BILL Blood BLOOD SPECIMEN / Unknown 06/10/2024 11:54 AM CDT 06/10/2024 Narrative Resulting Agency Comment Lab Testing performed at: [facility] [address] [facility] [id number] Jm Shafer MD LAB - CHEMISTRY FELISHA RABJAKI [facility] ACCOUNT BILL [address] [place] [address] * RETIC COUNT (06/10/2024 11:54 AM CDT) Reticulocyte Count 1.07 0.50 - 2.40 % [facility] ACCOUNT BILL Blood BLOOD SPECIMEN / Unknown 06/10/2024 11:54 AM CDT 06/10/2024 Narrative Resulting Agency Comment Lab Testing performed at: [facility] [place] [address] [place] [id number] Jm Shafer MD LAB - HEMATOLOGY ORD ERABLES [facility] ACCOUNT BILL [address] [place] [address] * (ABNORMAL) COMPREHENSIVE METABOLIC PANEL (06/10/2024 11:54 [...] Resulting Agency Comment Lab Testing performed at: [facility] [place] [address] [place] [id number] Jm Shafer MD LAB - CHEMISTRY FELISHA MANUEL [facility] ACCOUNT BILL [address] [place] [address] * (ABNORMAL) LDH BLOOD (06/10/2024 11:54 AM CDT) Only the most recent of2 resultswithin the time period is included. LDH 242(H) 125 - 220 U/L [facility] ACCOUNT BILL Blood BLOOD SPECIMEN / Unknown 06/10/2024 11:54 AM CDT 06/10/2024 Narrative Resulting Agency Comment Lab Testing performed at: [place] [address] [place] [id number] Jm Shafer MD LAB - CHEMISTRY FELISHA MANUEL [facility] ACCOUNT BILL [address] [place] [address] * HAPTOGLOBIN (06/10/2024 11:54 AM CDT) Haptoglobin 138 33 - 346 mg/dL [facility] ACCOUNT BILL Blood BLOOD SPECIMEN / Unknown 06/10/2024 11:54 AM CDT 06/10/2024 Narrative Resulting Agency Comment Lab Testing performed at: [facility] [address] [facility] [id number] Jm Shafer MD LAB - CHEMISTRY FELISHA MANUEL Performing Organization Address City/[facility]/ZIP Co de Phone Number [facility] ACCOUNT BILL [address] [place] [address] * FL UGI W AIR CONTRAST (04/27/2024 [...] - 46.1 % 01/22/2024 11:13 AM CDT [facility] MCV 96.7 80.0 - 98.0 fL 01/22/2024 11:13 AM CDT [facility] MCH 30.9 26.7 - 33.6 pg 01/22/2024 11:13 AM CDT [facility] MCHC 32.0 31.7 - 36.3 g/dL 01/22/2024 11:13 AM CDT [facility] RDW-CV 14.4 11.3 - 14.8 % 01/22/2024 11:13 AM CDT [facility] Platelet Count 157 150 - 420 x10E9/L 01/22/2024 11:13 AM CDT [facility] MPV 11.9(H) 7.8 - 11.4 fL 01/22/2024 11:13 AM CDT [facility] Blood BLOOD SPECIMEN / Unknown Venipuncture / Unknown 01/22/2024 11:06 AM CDT 01/22/2024 11:10 AM CDT Sharla Sheth [facility] LAB - HEMATO LOGY ORDERABLES Performing Organization Address City/State/[facility] Co de Phone Number [facility] [address] [place] [phone] * [place] UGI SERIES WO KUB (01/22/2024 [...] DATE/TIME OF EXAM: 01/22/2024 8:36 AM, LOCATION [facility] INDICATION: K44.9: Diaphragmatic hernia without obstruction or [...] DATE/TIME OF EXAM: 01/22/2024 8:36 AM, LOCATION [facility] INDICATION: K44.9: Diaphragmatic hernia without obstruction or [...] resultswithin the time period is included. Pathologist [facility] Vitamin D, 25 Hydroxy 20.9(L) 30 - 80 ng/mL 01/22/2024 6:02 AM CDT [facility] Blood BLOOD SPECIMEN / Unknown Venipuncture / Unknown 01/22/2024 4:31 AM CDT 01/22/2024 5:17 AM CDT Narrative [facility] - 01/22/2024 6:02 AM CDT Vitamin D Status: Deficiency <20 ng/mL Insufficiency 20-30 ng/mL Sufficiency 30-100 ng/mL Toxicity >100 ng/mL Garret Curry MD [facility] Organization Address City/State/[facility] Co de Phone Number [facility] [address] [place] [address] * (ABNORMAL) CBC W AUTO DIFFERENTIAL (01/22/2024 4:31 AM CDT) Only the most recent of4 resultswithin the time period is included. Pathologist [facility] WBC 9.1 4.0 - 10.7 x10E9/L 01/22/2024 5:22 AM CDT [facility] RBC Count 2.77(L) 3.90 - 5.20 x10E12/L 01/22/2024 5:22 AM CDT [facility] Hemoglobin 8.3(L) 11.9 - 15.8 g/dL 01/22/2024 5:22 AM CDT [facility] Hematocrit 27.0(L) 34.8 - 46.1 % 01/22/2024 5:22 AM CDT [facility] MCV 97.5 80.0 - 98.0 fL 01/22/2024 5:22 AM CDT [facility] MCH 30.0 26.7 - 33.6 pg 01/22/2024 5:22 AM CDT [facility] MCHC 30.7(L) 31.7 - 36.3 [...] - 4.40 x10E9/L 01/22/2024 5:22 AM CDT [facility] Monocyte Absolute 0.52 0.15 - [...] - HEMATOLOGY ORD ERABLES Performing Organization Address City/[facility]/ZIP Co de Phone Number [facility] [address] [place], [place] [id number] * (ABNORMAL) BASIC METABOLIC PANEL (CALCIUM TOTAL) (01/22/2024 4:31 AM CDT) [facility] Glucose 91 70 - 105 mg/dL 01/22/2024 5:43 AM CDT [facility] Sodium 135(L) 136 - 145 mmol/L 01/22/2024 5:43 AM CDT [facility] Potassium 4.8 3.5 - 5.1 mmol/L 01/22/2024 5:43 AM CDT [facility] Chloride 109(H) 98 - 107 mmol/L 01/22/2024 5:43 AM CDT [facility] CO2 18(L) 22 - 29 mmol/L 01/22/2024 5:43 AM CDT [facility] Calcium 7.9(L) 8.4 - 10.4 mg/dL 01/22/2024 5:43 AM CDT [facility] Anion Gap 8 6 - 16 mmol/L 01/22/2024 5:43 AM CDT [facility] BUN 27(H) 7 - 26 mg/dL 01/22/2024 5:43 AM CDT [facility] Creatinine 0.91 0.57 - 1.11 mg/dL 01/22/2024 5:43 AM CDT [facility] eGFR by CKD-EPI 75(L) >=90 mL/min/1.7 3 m2 01/22/2024 5:43 AM CDT [facility] Blood BLOOD SPECIMEN / Unknown Venipuncture / Unknown 01/22/2024 4:31 AM CDT 01/22/2024 5:17 AM CDT Garret Curry MD LAB - CHEMISTRY FELISHA MANUEL Performing Organization Address [facility]/ZIP Co de Phone Number [facility] [address] [place], [place] [phone] * (ABNORMAL) GLUCOSE - POINT OF CARE (01/21/2024 11:13 PM CDT) Only the most recent of3 resultswithin the time period is included. [facility] Glucose WB/POC 130(H) 70 - 106 mg/dL 01/21/2024 11:24 PM CDT [facility] Specimen Type Cap Fingerstick 2023 11:24 PM CDT [facility] Blood BLOOD SPECIMEN / Unknown 01/21/2024 11:13 PM CDT 01/21/2024 11:24 PM CDT Garret Curry MD LAB - POINT OF CARE ORDERABLES [facility] [address] [place] [address] * ETT LINE PERFORMABLE (01/21/2024 8:23 AM CDT) Narrative Gregoria Vasquez APRN-CRNA - 01/21/2024 8:23 AM CDT Gregoria Vasquez APRN-CRNA 01/21/2024 8:24 AM Endotracheal Tube Placement: Patient Location: OR. Intubation Event Date/Time: 01/21/2024 8:06 AM Procedure: intubation (68839). Procedure Section: Sedation: under general anesthesia. Indications [...] (Bezet) 412 ms [facility] MUSE Calculated P [place] 3 degrees [facility] MUSE Calculated R [place] 11 degrees [facility] MUSE Calculated T [place] 18 degrees [facility] MUSE Interpretation EKG Normal sinus rhythm Normal ECG Confirmed by NUBIA CORRALES MD ([id number]) on 01/22/2024 10:27:33 AM [facility] MUSE 01/21/2024 6:46 AM CDT 01/22/2024 10:27 AM CDT Garret Curry MD ECG ORDERABLES [facility] * PATHOLOGY TISSUE EXAM (STL) (11/18/2023 10:23 AM APPRENTICE PAINTER NECKTIES) Only the most recent of3 resultswithin the time period is included. Case Report Surgical Pathology Report Case: [id number] Authorizing Provider: Faisal Christensen MD Collected: 11/18/2023 10:23 AM Ordering Location: [facility] Received: 11/18/2023 10:38 AM Pathologist: Katherine Perez MD Specimen: Esophageal Biopsy 11/20/2023 8:53 AM [facility] [facility] Final Diagnosis Esophagus, biopsy: -- Squamous mucosa with acute and focal eosinophilic inflammation and detached acute necroinflammatory exudate -- No dysplasia or malignancy 11/20/2023 8:53 AM [facility] Clinical History The patient is a 53-year-old woman with esophagitis. 11/20/2023 8:53 AM [facility] Gross Description Received in formalin labeled with patient's name and esophageal biopsy are 3 fragments of landeors tissue measuring 1 mm. Submitted entirely in cassette A1. 11/20/2023 8:53 AM [facility] Microscopic Description Histologic sections show [...] no evidence of malignancy. 11/20/2023 8:53 AM [facility] Disclaimer All histochemical and/or immunohistochemical results are interpreted with controls that demonstrate appropriate staining reactions before reporting results. Note on use of immunocytochemistry reagents: This test was developed and its performance characteristic determined by [facility], Department of Laboratory Medicine. It has not [...] be interpreted with caution. 11/20/2023 8:53 AM [facility] Embedded Images 11/20/2023 8:53 AM [facility] Pathology/Cytolo gy ESOPHAGEAL BIOPSY SPECIMEN / Unknown 11/18/2023 10:23 AM AP[employer]ENT[employer]INTER [employer]KTIES 11/18/2023 10:38 AM [facility] Faisal Christensen MD LAB - PATHOLOGY/CYT OLOGY ORDERABLES [facility] [address] [place] [address] * EGD (11/18/2023 9:18 AM APPRENTICE PAINTER [employer]ECKTIES) Report Endoscopy POC _ Patient Name: Carla Wen Procedure Date: 11/18/2023 9:18 AM Date of : 1970 Admit Type: Outpatient Age: 53 Gender: Female Attending MD: Faisal Christensen MD, [id number] _ Procedure: Upper GI endoscopy Indications: Dysphagia, [...] by the physician, the nurse and the custodial manager in the procedure room. Mental Status Examination: [...] the patient. Procedure Code(s): --- Professional --- 37664, Esophagogastroduod enoscopy, flexible, transoral; with transendoscopic balloon dilation of esophagus (less than 30 mm diameter) --- Technical --- 64463, Esophagogastroduod enoscopy, flexible, transoral; with transendoscopic balloon [...] R63.4, Abnormal weight loss CPT copyright 2020 [employer]. All rights reserved. The codes documented in this report are preliminary and upon president and chief commercial officer review may be revised to meet current compliance requirements. Dr. Faisal Christensen MD Faisal Christensen MD 11/18/2023 10:28:46 AM This report has been signed electronically. Number of Addenda: 0 Note Initiated On: 11/18/2023 9:18 AM [facility] 11/18/2023 9:18 AM AP[employer] Ruth Hernandez [facility] GI PROCEDURE O RDERABLES [facility] [place] [address] * (ABNORMAL) LIPID PROFILE REFLEX LDL DIRECT [...] Resulting Agency Comment Lab Testing performed at: [facility] [address] [phone] Gissel Higuera PA-C LAB - CHEMISTRY FELISHA MANUEL [facility] ACCOUNT BILL [address] [place] [address] * IRON + TIBC + FERRITIN (06/27/2023 [...] Resulting Agency Comment [facility] Testing performed [facility]: [facility] [address] [facility] [phone] Gissel S Davida PA-C LAB - CHEMISTRY ORDE RABJAKI [facility] ACCOUNT BILL [address] [place] [address] * (ABNORMAL) VITAMIN B12 (06/27/2023 1:46 PM CDT) Only the most recent of2 resultswithin the time period is included. Vitamin B12 >2000(H) 232 - 1245 pg/mL [facility] ACCOUNT BILL Comment:FASTING Blood BLOOD SPECIMEN / Unknown 06/27/2023 1:46 PM CDT 06/27/2023 Narrative Resulting Agency Comment Lab Testing performed at: [place] [id number] [facility] [id number] Gissel Davidr PA-C LAB - CHEMISTRY ORDE MAR Performing Organization Address City/[facility]/ZIP Co de Phone Number [facility] ACCOUNT BILL [address] [place] [address] * XR CHEST 2VW (06/26/2023 4:25 PM [...] O RDERABLES * EGD (12/01/2021 12:47 PM APPRENTICE PAINTER [employer]ECKTIES) Report Endoscopy POC _ Patient Name: Carla [...] 2 months. Procedure Code(s): --- Professional --- 39067, Esophagogastroduo denoscopy, flexible, transoral; with biopsy, single or multiple --- Technical --- 62648, Esophagogastroduo denoscopy, flexible, transoral; with biopsy, single or multiple Diagnosis Code(s): --- Professional --- K44.9, Diaphragmatic hernia without obstruction or gangrene K21.01, Gastro-esophageal reflux disease with esophagitis, with bleeding K22.2, Esophageal obstruction --- Technical --- K44.9, Diaphragmatic hernia without obstruction or gangrene K21.01, Gastro-esophageal reflux disease with esophagitis, with bleeding K22.2, Esophageal obstruction CPT copyright 2019 [employer]. All rights reserved. The codes documented in this report are preliminary and upon president and chief commercial officer review may be revised to meet current compliance requirements. Dr. Lory Narvaez MD Camille Narvaez MD 12/01/2021 1:55:42 PM Number of Addenda: 0 Note Initiated On: 12/01/2021 12:47 PM [facility] 12/01/2021 12:4 7 PM APPRENTICE PAINTER NECKTIES Camille Narvaez MD GI PROCEDURE ORDERAB LES [facility] [place] [address] * SARS-COV-2 PCR 2 DAY TAT (06/09/2021 12:11 PM CDT) SARS-CoV-2 PCR 2 DAY TAT Performed [facility] ACCOUNT BILL 06/09/2021 12:1 1 PM CDT 06/09/2021 Narrative Resulting Agency Comment Lab Testing performed at: [facility] [address] [facility] [id number] Johnna Abbott MD LAB - MICROBIOLOGY O [place] [facility] ACCOUNT BILL [address] [place] [address] * COVID-19 SARS-COV-2 [facility] QUAL [facility] (06/09/2021 12:11 PM CDT) Pathologist [facility] SARS-CoV-2 HOMAR Not Detected Not Detected [facility] ACCOUNT BILL Comment: This nucleic acid amplification test was developed and its performance characteristics determined by [employer]. Nucleic acid amplification tests include RT-PCR and [...] Resulting Agency Comment Lab Testing performed at: [facility] [address] [id number] Johnna Abbott MD LAB - MICROBIOLOGY O [place] [facility] ACCOUNT BILL [address] [place] [address] * CULTURE STOOL+ E COLI SHIGA-LIKE TOXIN (02/15/2021 5:06 PM CDT) Culture No growth Salmonella, Shigella, Campylobacter, Escherichia coli O157:h7 or Yersinia ANNE 02/17/2021 9:45 AM CDT [facility] Culture Escherichia coli Shiga-like toxin testing not performed (NM) ANNE 02/17/2021 9:45 AM CDT [facility] Stool STOOL SPECIMEN / Unknown Collection / Unknown 02/15/2021 5:06 PM CDT 02/15/2021 5:06 PM CDT Narrative [facility] - 02/17/2021 9:45 AM CDT Unable to test for Escherichia coli Shiga-like toxin due to absence of fecal organisms. Camille Narvaez MD LAB - MICROBIOLOGY O [place] Performing Organization Address [facility]/ZIP Co de Phone Number [facility] [address] [place] [address], [facility] [phone] * C DIFFICILE GDH AG + TOXIN A+B (02/15/2021 5:06 PM CDT) GDH Antigen Negative Negative, Invalid 02/16/2021 7:41 AM CDT [facility] C difficile Toxin A + B Negative Negative, Invalid 02/16/2021 7:41 AM CDT [facility] Interpretation C difficile Negative for toxigenic C. difficile Negative for toxigenic C. difficile 02/16/2021 7:41 AM CDT [facility] Stool STOOL SPECIMEN / Unknown Collection / Unknown 02/15/2021 5:06 PM CDT 02/15/2021 5:06 PM CDT Camille Narvaez MD LAB - MICROBIOLOGY O [place] [facility] [address] [place] [address], [facility] [phone] * O+P RST RFLXED (02/15/2021 5:06 PM CDT) Result 1 Comment 02/21/2021 12:06 AM CDT [facility] ([facility]) Comment: No ova, cysts, or parasites seen. One negative specimen does not rule out the possibility of a parasitic infection. Stool STOOL SPECIMEN / Unknown Collection / Unknown 02/15/2021 5:06 PM CDT 02/15/2021 5:06 PM CDT Narrative [facility] ([facility]) - 02/21/2021 12:06 AM CDT Performed at: [address] [id number] Entry Level Accounting Clerk: Edmar Epperson PhD, Phone: [phone] Camille Narvaez MD LAB - MICROBIOLOGY O RDERABLES Performing Organization Address [facility] Co de Phone Number [facility] ([facility]) [address] [place] [address] * CALPROTECTIN FECAL (02/15/2021 5:06 PM CDT) Calprotectin Fecal 18 0 - 120 ug/g 02/20/2021 5:07 PM CDT [facility] ([facility]) Comment: Concentration Interpretation Follow-Up <16 - 50 ug/g Normal None >50 -120 ug/g Borderline Re-evaluate in 4-6 weeks >120 ug/g Abnormal Repeat as clinically indicated Stool STOOL SPECIMEN / Unknown Collection / Unknown 02/15/2021 5:06 PM CDT 02/15/2021 5:06 PM CDT Narrative [facility] ([facility]) - 02/20/2021 5:07 PM CDT Performed at: [address] [id number] Entry Level Accounting Clerk: Adama Larson MD, Phone: [phone] Camille Narvaez MD LAB - BODY FLUID ORD ERABLES Performing Organization Address [facility]/ZIP Co de Phone Number [facility] ([facility]) [address] [place] [address] * O+P PANEL (02/15/2021 5:06 PM CDT) O+P Exam Final report 02/21/2021 12:06 AM CDT [facility] ([facility]) Comment: These results were obtained using wet preparation(s) and trichrome stained smear. This test does not include testing for Cryptosporidium parvum, Cyclospora, or Microsporidia. Stool STOOL SPECIMEN / Unknown Collection / Unknown 02/15/2021 5:06 PM CDT 02/15/2021 5:06 PM CDT Narrative [facility] ([facility]) - 02/21/2021 12:06 AM CDT Performed at: - [address] [id number] Entry Level Accounting Clerk: Edmar Epperson PhD, Phone: [phone] Camille Narvaez MD LAB [facility] ([facility]) [address] [place] [address] * EGD (02/15/2021 12:11 PM CDT) Report [...] check healing. Procedure Code(s): --- Professional --- 59423, Esophagogastroduode noscopy, flexible, transoral; with biopsy, single or multiple --- Technical --- 45656, Esophagogastroduode noscopy, flexible, transoral; with biopsy, single [...] Dysphagia, unspecified R12, Heartburn CPT copyright 2019 [employer]. All rights reserved. The codes documented in this report are preliminary and upon president and chief commercial officer review may be revised to meet current compliance requirements. Dr. Lory Narvaez MD Camille Narvaez MD 02/15/2021 1:49:55 PM Number of Addenda: 0 Note Initiated On: 02/15/2021 12:11 PM [facility] 02/15/2021 12:1 1 PM CDT Camille Narvaez MD GI PROCEDURE ORDERAB LES [facility] [place] [address] * ENDOSCOPY, COLON, SCREENING (02/15/2021 12:11 PM [...] colon cancer Procedure Code(s): --- Professional --- 75479, Colonoscopy, flexible; with biopsy, single or multiple --- Technical --- 07153, Colonoscopy, flexible; with biopsy, single or multiple Diagnosis Code(s): --- Professional --- K64.8, Other hemorrhoids K52.9, Noninfective gastroenteritis and colitis, unspecified K57.30, Diverticulosis of large intestine without perforation or abscess without bleeding --- Technical --- K64.8, Other hemorrhoids K52.9, Noninfective gastroenteritis and colitis, unspecified K57.30, Diverticulosis of large intestine without perforation or abscess without bleeding CPT copyright 2019 [employer]. All rights reserved. The codes documented in this report are preliminary and upon president and chief commercial officer review may be revised to meet current compliance requirements. Dr. Lory Narvaez MD Camille Narvaez MD 02/15/2021 1:43:26 PM Number of Addenda: 0 Note Initiated On: 02/15/2021 12:11 PM [facility] 02/15/2021 12:1 1 PM CDT Camille Narvaez MD [place] [address] * TSH REFLEX FREE T4 (01/31/2021 8:42 AM CDT) TSH 3.020 0.450 - 4.500 uIU/mL [facility] ACCOUNT BILL Comment:FASTING Blood BLOOD SPECIMEN / Unknown 01/31/2021 8:42 AM CDT 01/31/2021 Narrative Resulting Agency Comment Lab Testing performed at: [facility] [id number] Gissel Higuera PA-C LAB - CHEMISTRY ORDE MAR Performing Organization Address [facility] Co de Phone Number [facility] ACCOUNT BILL [address] [place] [address] * BNP [B-TYPE NATRIURETIC PEPTIDE] (01/31/2021 8:41 AM CDT) Only the most recent of2 resultswithin the time period is included. BNP 55.5 0.0 - 100.0 pg/mL [facility] ACCOUNT BILL Comment:FASTING Blood BLOOD SPECIMEN / Unknown 01/31/2021 8:41 AM CDT 01/31/2021 Narrative Resulting Agency Comment Lab Testing performed at: [facility] [id number] Gissel REBOLLEDO-Anil LAB - CHEMISTRY ORDE MAR Performing Organization Address City/[facility]/ZIP Co de Phone Number [facility] ACCOUNT BILL [address] [place] [address] * IRON + TIBC PANEL (01/31/2021 8:41 [...] Resulting Agency Comment [facility]: [facility] [address] [facility] [id number] Gissel Davidpk [facility] LAB - CHEMISTRY ORDJamin MAR Performing Organization Address [facility] de Phone Number [facility] ACCOUNT BILL [address] [place] [address] * (ABNORMAL) LIPID PROFILE (LIPID PANEL) (01/31/2021 [...] Resulting Agency Comment Lab Testing performed at: [address] [id number] Gissel Varner Davida [facility] LAB - CHEMISTRY FELISHA MANUEL Performing Organization Address [facility] de Phone Number [facility] ACCOUNT BILL [address] [place] [address] * CARDIAC RHYTHM STRIP ORDER (06/07/2020 6:19 [...] UA Negative Negative 05/30/2020 3:41 PM CDT [facility] Bilirubin UA Negative Negative 05/30/2020 3:41 PM CDT [facility] Ketone UA Negative Negative 05/30/2020 3:41 PM CDT [facility] Specific [place] UA 1.011 1.005 - 1.030 05/30/2020 3:41 PM CDT [facility] Blood UA Negative Negative 05/30/2020 3:41 PM CDT [facility] pH UA 7.0 5.0 - 8.0 pH 05/30/2020 3:41 PM CDT [facility] Protein UA Negative Negative 05/30/2020 3:41 PM CDT [facility] Urobilinogen UA Negative Negative mg/dL 05/30/2020 3:41 PM CDT [facility] Nitrite UA Negative Negative 05/30/2020 3:41 PM CDT [facility] Leukocyte UA Negative Negative 05/30/2020 3:41 PM CDT [facility] Urine Microscopy Urine microscopy not indicated 05/30/2020 3:41 PM CDT [facility] Reflex Status Culture not indicated 05/30/2020 3:41 PM CDT [facility] Urine URINE SPECIMEN OBTAINED BY CLEAN CATCH PROCEDURE / Unknown Collection / Unknown 05/30/2020 3:29 PM CDT 05/30/2020 3:34 PM CDT Narrative [facility] - 05/30/2020 3:41 PM CDT Rafael Aguirre LANDMAN-LICENSED LIFE AND HEALTH AGENT LAB - URINALYS IS ORDERABLES [facility] [address] [place] [address] * SARS-COV-2 (COVID-19) IN HOUSE (05/30/2020 10:23 AM CDT) COVID-19 PCR Not detected Not detected, Invalid 05/30/2020 9:37 PM CDT [facility] Microbiology SPECIMEN FROM NASOPHARYNGEAL STRUCTURE / Unknown Collection / Unknown 05/30/2020 10:23 AM CDT 05/30/2020 10:31 AM CDT Narrative [facility] - 05/30/2020 9:37 PM CDT This Real Time RT-PCR assay was developed and its performance characteristics determined by [facility]. This test has been authorized [...] - MICROBIOLOGY O [place]NIKA Performing Organization Address City/State/[facility] Co de Phone Number [facility] [address] [place] [address], [facility] [phone] * (ABNORMAL) PROCALCITONIN LEVEL (05/30/2020 10:23 AM CDT) Procalcitonin 0.34(H) <0.10 ng/mL 05/30/2020 12:15 PM CDT [facility] Blood BLOOD SPECIMEN / Unknown Venipuncture / Unknown 05/30/2020 10:23 AM CDT 05/30/2020 11:35 AM CDT Narrative [facility] - 05/30/2020 12:15 PM CDT [...] Change in Procalcitonin Calculator is available at [email or web address] If clinical picture has not improved and PCT remains high, reevaluate and consider treatment failure or other causes. Rafael Aguirre APRN-LICENSED LIFE AND HEALTH AGENT LAB - CHEMISTR Y ORDERABLES Performing Organization Address [facility] Co de Phone Number [facility] [address] [place] [address] * TROPONIN I (05/30/2020 10:23 AM CDT) Pathologist [facility] Troponin I 0.019 <0.038 ng/mL 05/30/2020 11:01 AM CDT [facility] Blood BLOOD SPECIMEN / Unknown Venipuncture / Unknown 05/30/2020 10:23 AM CDT 05/30/2020 10:31 AM CDT Mayco Ferrer MD LAB - CHEMISTRY ORDE RABJAKI Performing Organization Address [facility] de Phone Number [facility] [address] [place] [phone] * (ABNORMAL) C-REACTIVE PROTEIN (05/30/2020 10:23 AM CDT) Pathologist [facility] C-Reactive Protein 7.92(H) <=0.50 mg/dL 05/30/2020 11:51 AM CDT [facility] Blood BLOOD SPECIMEN / Unknown Venipuncture / Unknown 05/30/2020 10:23 AM CDT 05/30/2020 11:35 AM CDT Rafael Aguirre APRN-LICENSED LIFE AND HEALTH AGENT LAB - CHEMISTR Y ORDERABLES Performing Organization Address [facility] de Phone Number [facility] [address] [place] [address] * CULTURE BLOOD (05/30/2020 10:20 AM CDT) Only the most recent of2 resultswithin the time period is included. Culture No growth day 5 ANNE 06/04/2020 1:30 PM CDT [facility] Blood PERIPHERAL BLOOD / Unknown Venipuncture / Unknown 05/30/2020 10:20 AM CDT 05/30/2020 10:31 AM CDT Mayco Ferrer MD LAB - MICROBIOLOGY O RDERABLES [facility] [address] [place], [place] [address] [phone] * LACTIC ACID BLOOD (05/30/2020 10:20 AM CDT) Lactic Acid 1.13 0.5 - 2.2 mmol/L 05/30/2020 10:51 AM CDT [facility] Blood BLOOD SPECIMEN / Unknown Venipuncture / Unknown 05/30/2020 10:20 AM CDT 05/30/2020 10:32 AM CDT Mayco Ferrer MD LAB - CHEMISTRY ORDE RABLES Performing Organization Address City/[facility]/ZIP Co de Phone Number [facility] [address] [place] [phone] * XR CHEST 1VW PORTABLE (05/30/2020 9:52 [...] SAMPLE S / Unknown 08/13/2019 Mayda Panda LANDMAN-LIC[employer]ED LIFE AND HEALTH AGENT LAB - PO INT OF CARE ORDERABLES Care Teams Exchange Mechanic Relationship Specialty Start Date End Date Johnna Abbott MD [address] [facility] [address] [place] [address] PCP - General Family Medicine 11/20/23 Camille Narvaez MD Religion Professor Gastroenterology 01/03/22 [place] [address] [place] [address] General Surgery 05/18/24 [place] [address] [facility] [address] [place] [id number] Pca/Oncologist Hematology and Oncology 06/10/24
--- OUTSIDE RECORDS SUMMARY | 2024-12-15 02:55 | XMS_ITS | Referral Summary ---
Author Organization [facility] Address [address] [place] [address] Care Team Providers Care Heavy Duty Truck Mechanic Name Role Phone Camille Narvaez MD Unavailable [phone] Johnna Abbott MD Primary Care Provider [phone] Garret Curry MD Unavailable [phone] Jm Shafer MD Unavailable [phone] Source Comments [facility],non-owned Affiliates and Associated Physician Practices is amultiple site organization consisting of ambulatory clinics and hospital sitesin [place], [place], [place] and [place]. This disclosure is being madepursuant to the Care Everywhere program and may not contain all information available regarding this patient. Last updated 18.[facility] Encounters Date Type Department Care Team Description 11/30/2024 Telephone [facility] Weight Management Services [address] [facility], [facility] [address] [place] [address] Garret Curry MD Pre Authorization (Lap hhr w/lynda gasatroplasty) 11/18/2024 9:40 AM GATHERING MACHINE SETTER Office Visit [facility] - Family Medicine [address] [facility] [address] [place] [address] Gissel Higuera PA-C Well woman exam (Primary Dx); Wakes up during night 11/04/2024 10:00 AM GATHERING MACHINE SETTER Office Visit [facility] Cancer Care [address] [facility] [address] [place] [address] Jm Shafer MD Anemia, unspecified type (Primary Dx) 10/28/2024 Refill [facility] - Family Medicine [address] [facility] [address] [place] [address] Johnna Abbott MD Refill Request 10/19/2024 Orders Only [facility] [place] [address] [facility], [address] [place] [id number] Evelyn Conley, CLERK OF SCALES(ASCP) Anemia, unspecified type 10/08/2024 10:40 AM GATHERING MACHINE SETTER Office Visit [facility] Weight Management Services [address] [facility], [address] [place] [address] Garret Curry MD Gastric stenosis (Primary Dx); [...] Active vitamin D, ergocalciferol, (Drisdol) 1.25 MG (13822 UT) capsuleIndication s:Vitamin D Deficiency Take 1 [...] Recorded Patient Health Questionnaire-2 Score 0 11/04/2024 [facility] [place] [facility] Occupat ional Health - Occupational Stress [...] place to sleep or slept in a fpc (including now)? No 01/21/2024 Sex and Gender Information Value Date Recorded Sex Assigned at Female 10/08/2024 10:18 AM GATHERING MACHINE SETTER Gender Identity Female 10/08/2024 10:18 AM GATHERING MACHINE SETTER Sexual Orientation Not on file Last Filed Vital Signs Vital Sign Reading Time Taken Comments Blood Pressure 128/80 11/18/2024 10:06 AM GATHERING MACHINE SETTER Pulse 67 11/18/2024 10:06 AM GATHERING MACHINE SETTER Temperature 36.4 C (97.5 F) 11/18/2024 10:06 AM GATHERING MACHINE SETTER Respiratory Rate 18 11/04/2024 9:53 AM GATHERING MACHINE SETTER Oxygen Saturation 100% 11/18/2024 10:06 AM GATHERING MACHINE SETTER Inhaled Oxygen Concentration - - Weight 93.9 kg (207 lb) 11/18/2024 10:06 AM GATHERING MACHINE SETTER Height 152.4 cm (5') 11/04/2024 9:53 AM GATHERING MACHINE SETTER Body Mass Index 40.43 11/04/2024 9:53 AM GATHERING MACHINE SETTER Functional Status Functional Status Response Date of [...] Info) Description 03/04/2025 2:00 PM CDT Documentation [facility] [id number] [place] [address] [address] [place] [address] 03/04/2025 2:20 PM CDT Office Visit [facility] Cancer [facility] [id number] [place] [address] [address] [place] [address] [place] [id number] [place] [address] Procedures Procedure Name Priority Date/Time Associated Diagnosis Comments PAP IG LB +HPV APTIMA REFLEX ,18/45 Routine 11/18/2024 10:44 AM GATHERING MACHINE SETTER Well woman exam CBC W AUTO DIFFERENTIAL (CANCER CARE) Routine 11/04/2024 9:46 AM GATHERING MACHINE SETTER Anemia, unspecified type IRON + TRANSFERRIN PANEL Routine 11/04/2024 9:46 AM GATHERING MACHINE SETTER Anemia, unspecified type VITAMIN B12 FOLATE PANEL Routine 11/04/2024 9:46 AM GATHERING MACHINE SETTER Anemia, unspecified type FERRITIN Routine 11/04/2024 9:46 AM GATHERING MACHINE SETTER Anemia, unspecified type COMPREHENSIVE METABOLIC PANEL Routine 06/10/2024 11:54 AM CDT Anemia, unspecified type LIPID PROFILE REFLEX LDL DIRECT Routine 06/27/2023 1:47 PM CDT Screening cholesterol level ENDOSCOPY, COLON, SCREENING Routine 02/15/2021 12:11 PM CDT from Last 3 Months or Most Recently Relevant to Health Maintenance Results * PAP IG LB +HPV APTIMA REFLEX 16,18/45 (11/18/2024 10:44 AM GATHERING MACHINE SETTER) Diagnosis Comment [facility] ACCOUNT BILL Comment:NEGATIVE FOR [...] ENTIRE ENDOCERVIX / Unknown 11/18/2024 10:44 AM GATHERING MACHINE SETTER 11/18/2024 Comment:Endocrvx Release to p Narrative [facility] ACCOUNT BILL - 11/22/2024 1:06 PM GATHERING MACHINE SETTER Performed [facility]: - [facility] [address] [place] [id number] Iphone Developer: Fortino Fernandez MD, Phone: [phone] Performed at: - [address] [id number] Iphone Developer: Mitzi Fung MD, Phone: [phone] Performed at: - [address] [id number] Iphone Developer: Mitzi Fung MD, Phone: [phone] Specimen Comment: [id number] Specimen Comment: Source.............Endocervix Specimen Comment: Other..............Post Menopausal Specimen Comment: No. of containers..01 ThinPrep Vial Gissel Higuera PA-C LAB - PATHOLOGY/CYTO LOGY ORDERABLES [facility] ACCOUNT BILL [address] [place] [address] * (ABNORMAL) CBC W AUTO DIFFERENTIAL (CANCER CARE) (11/04/2024 9:46 AM GATHERING MACHINE SETTER) WBC 5.6 4.4 - 10.7 x10E9/L 11/04/2024 9:52 AM GATHERING MACHINE SETTER [facility] Neutrophils % 61.3 44.0 - 73.0 % 11/04/2024 9:52 AM GATHERING MACHINE SETTER [facility] Lymphocytes % 26.6 20.0 - 43.0 % 11/04/2024 9:52 AM GATHERING MACHINE SETTER [facility] Monocytes % 8.7 5.0 - 13.0 % 11/04/2024 9:52 AM GATHERING MACHINE SETTER [facility] Eosinophils % 2.9 0.0 - 6.0 % 11/04/2024 9:52 AM GATHERING MACHINE SETTER [facility] Basophils % 0.5 0.0 - 2.0 % 11/04/2024 9:52 AM GATHERING MACHINE SETTER [facility] Neutrophil Absolute 3.44 2.01 - 7.14 x10E9/L 11/04/2024 9:52 AM GATHERING MACHINE SETTER [facility] Lymphocytes Absolute 1.49 1.07 - 3.94 x10E9/L 11/04/2024 9:52 AM GATHERING MACHINE SETTER [facility] Monocytes Absolute 0.49 0.26 - 1.07 x10E9/L 11/04/2024 9:52 AM GATHERING MACHINE SETTER [facility] Eosinophils Absolute 0.16 0 - 0.47 x10E9/L 11/04/2024 9:52 AM GATHERING MACHINE SETTER [facility] Basophils Absolute 0.03 0 - 0.08 x10E9/L 11/04/2024 9:52 AM GATHERING MACHINE SETTER [facility] RBC 3.64(L) 3.80 - 5.20 x10E12/L 11/04/2024 9:52 AM GATHERING MACHINE SETTER [facility] Hemoglobin 11.1(L) 12.0 - 15.6 gm/dL 11/04/2024 9:52 AM GATHERING MACHINE SETTER [facility] Hematocrit 35.5(L) 35.9 - 45.5 % 11/04/2024 9:52 AM GATHERING MACHINE SETTER [facility] MCV 97.5 80.7 - 98.3 fl 11/04/2024 9:52 AM GATHERING MACHINE SETTER [facility] MCH 30.5 26.7 - 34.0 pg 11/04/2024 9:52 AM GATHERING MACHINE SETTER [facility] MCHC 31.3 30.8 - 35.9 gm/dL 11/04/2024 9:52 AM [facility] RDW-CV 14.1 12.1 - 14.9 % 11/04/2024 9:52 AM [facility] Platelet Count 235 153 - 416 x10E9/L 11/04/2024 9:52 AM [facility] MPV 10.8 9.4 - 12.9 fl 11/04/2024 9:52 AM [facility] Blood BLOOD SPECIMEN / Unknown 11/04/2024 9:46 AM GATHERING MACHINE SETTER 11/04/2024 9:46 AM GATHERING MACHINE SETTER Jm Shafer MD LAB - HEMATOLOGY ORD ERABLES [facility] [address] [address] * (ABNORMAL) VITAMIN B12 FOLATE PANEL (11/04/2024 9:46 AM GATHERING MACHINE SETTER) Vitamin B12 >2000(H) 213 - 816 pg/mL [facility] ACCOUNT BILL Folate 14.7 7.0 - 31.4 ng/mL [facility] ACCOUNT BILL Blood BLOOD SPECIMEN / Unknown 11/04/2024 9:46 AM GATHERING MACHINE SETTER 11/04/2024 Comment:Blood Release to pat i Narrative [facility] ACCOUNT BILL - 11/04/2024 6:07 PM GATHERING MACHINE SETTER Performed at: [place] [address], [place] [id number] Iphone Developer: Lele Hartman [facility], Phone: [phone] Jm Shafer MD LAB - CHEMISTRY FELISHA MANUEL [facility] ACCOUNT BILL [address] [place] [address] * IRON + TRANSFERRIN PANEL (11/04/2024 9:46 AM GATHERING MACHINE SETTER) Iron 117 40 - 150 ug/dL [facility] ACCOUNT BILL Transferrin 308 174 - 382 mg/dL [facility] ACCOUNT BILL Comment: TIBC CALCULATED BLOOD ([facility]) 385 ug/dL 240-450 SATURATION % BLOOD ([facility]) 30 % 20-50 Blood BLOOD SPECIMEN / Unknown 11/04/2024 9:46 AM GATHERING MACHINE SETTER 11/04/2024 Comment:Blood Release to pat i Narrative [facility] ACCOUNT BILL - 11/04/2024 6:07 PM GATHERING MACHINE SETTER Performed at: [place] [address], [place] [id number] Iphone Developer: Lele Hartman [facility], Phone: [phone] Jm Shafer MD LAB - CHEMISTRY FELISHA MANUEL Performing Organization Address City/[facility]/ZIP Co de Phone Number [facility] ACCOUNT BILL [address] [place] [address] * FERRITIN (11/04/2024 9:46 AM GATHERING MACHINE SETTER) Ferritin 132 5 - 204 ng/mL [facility] ACCOUNT BILL Blood BLOOD SPECIMEN / Unknown 11/04/2024 9:46 AM GATHERING MACHINE SETTER 11/04/2024 Comment:Blood Release to pat i Narrative [facility] ACCOUNT BILL - 11/04/2024 6:07 PM GATHERING MACHINE SETTER Performed at: - [place] [address], [place] [id number] Iphone Developer: Lele Hartman [facility], Phone: [phone] Jm Shafer MD LAB - CHEMISTRY FELISHA MANUEL [facility] ACCOUNT BILL [address] [place] [address] * (ABNORMAL) COMPREHENSIVE METABOLIC PANEL (06/10/2024 11:54 [...] Resulting Agency Comment Lab Testing performed at: [place] [address] [place] [id number] Jm Shafer MD LAB - CHEMISTRY FELISHA MANUEL [facility] ACCOUNT BILL [address] [place] [address] * (ABNORMAL) LIPID PROFILE REFLEX LDL DIRECT [...] Resulting Agency Comment Lab Testing performed at: [facility] [address] [facility] [id number] Gissel Higuera PA-C LAB - CHEMISTRY FELISHA MANUEL [facility] ACCOUNT BILL [address] [place] [address] * ENDOSCOPY, COLON, SCREENING (02/15/2021 12:11 PM CDT) Report Endoscopy POC _ Patient Name: Carla Wen Procedure Date: 02/15/2021 12:11 PM Date of : 1970 Admit Type: Outpatient Age: 50 Gender: Female Attending MD: Camille Narvaez MD _ Procedure: Colonoscopy Indications: Chronic diarrhea Providers: Camille Narvaez MD (Doctor) Referring MD: Johnan Abbott MD (Referring MD) Medicines: Monitored Anesthesia [...] colon cancer Procedure Code(s): --- Professional --- 18739, Colonoscopy, flexible; with biopsy, single or multiple --- Technical --- 38796, Colonoscopy, flexible; with biopsy, single or multiple Diagnosis Code(s): --- Professional --- K64.8, Other hemorrhoids K52.9, Noninfective gastroenteritis and colitis, unspecified K57.30, Diverticulosis of large intestine without perforation or abscess without bleeding --- Technical --- K64.8, Other hemorrhoids K52.9, Noninfective gastroenteritis and colitis, unspecified K57.30, Diverticulosis of large intestine without perforation or abscess without bleeding CPT copyright 2019 [employer]. All rights reserved. The codes documented in this report are preliminary and upon special effects designer review may be revised to meet current compliance requirements. Dr. Lory Narvaez MD Camille Narvaez MD 02/15/2021 1:43:26 PM Number of Addenda: 0 Note Initiated On: 02/15/2021 12:11 PM [facility] ENDOSCOPY 02/15/2021 12:1 1 PM CDT Camille Narvaez MD GI PROCEDURE ORDERAB [place] [address] from Last 3 Months or Most Recently Relevant to Health Maintenance Administered Medications Advance Directives * Full Code (Latest Code Status on File) Date Activated Date Inactivated Comments 01/21/2024 9:45 AM 01/22/2024 7:35 PM * Full Code Date Activated Date Inactivated Comments 05/30/2020 12:34 PM 06/01/2020 2:33 PM Care Teams Heavy Duty Truck Mechanic Relationship Specialty Start Date End Date Johnna Abbott MD [address] [facility] [address] [place] [address] PCP - General Family Medicine 11/20/23 Camille Narvaez MD [employer] Salvage Processor Gastroenterology 01/03/22 [place] [address] [facility] [address] [place] [address] General Surgery 05/18/24 [place] [address] [address] Bike Designer/Oncologist Hematology and Oncology 06/10/24
--- OUTSIDE RECORDS SUMMARY | 2024-12-15 02:55 | XMS_ITS | CONTINUITY OF CARE DOCUMENT ---
Author Name lawrence bravo Address Unknown Organization [facility] Address [address] [facility] [address] [place] [address] Phone [phone] Care Team Providers Care Soda Column Operator Name Role Phone lawrence bravo Unavailable Unavailable INSURANCE PROVIDERS Payer name Policy type / Coverage type [place] red republic[employer] [employer] Medicaid 0 [id number]
--- OUTSIDE RECORDS SUMMARY | 2024-12-15 02:55 | XMS_ITS | Clinical Summary ---
Author Organization [facility] Address [address] [place] [address] Care Team Providers Care Draw Press Operator Name Role Phone Camille Narvaez MD Unavailable [phone] Johnna Abbott MD Primary Care Provider [phone] Garret Curry MD Unavailable [phone] Jm Shafer MD Unavailable [phone] Source Comments [facility],non-owned Affiliates and Associated Physician Practices is amultiple site organization consisting of ambulatory clinics and hospital sitesin [place], [place], [place] and [place]. This disclosure is being madepursuant to the Care Everywhere program and may not contain all information available regarding this patient. Last updated 18.[facility] Allergies Active Allergy Reactions Criticality Noted [...] Active vitamin D, ergocalciferol, (Drisdol) 1.25 MG (69798 UT) capsuleIndication s:Vitamin D Deficiency Take 1 [...] Type Department Care Team Description 11/30/2024 Telephone [facility] Weight Management Services [address] [facility], [address] [place] [address] Garret Curry MD Pre Authorization (Lap hhr w/lynda gasatroplasty) 11/18/2024 9:40 AM COMPLAINT INVESTIGATOR Office Visit [facility] - Family Medicine [address] [facility] [address] [place] [address] Gissel Higuera PA-C Well woman exam (Primary Dx); Wakes up during night 11/04/2024 10:00 AM COMPLAINT INVESTIGATOR Office Visit [facility] [address] [facility] [address] [place] [phone] Jm Shafer MD Anemia, unspecified type (Primary Dx) 10/28/2024 Refill [facility] - Family Medicine [address] [facility] [address] [place] [address] Johnna Abbott MD Refill Request 10/19/2024 Orders Only [facility] [address], [address] [place] [address] Evelyn Conley MLT(ASCP) Anemia, unspecified type 10/08/2024 10:40 AM COMPLAINT INVESTIGATOR Office Visit [facility] [address] [facility] [address] [facility], [address] [place] [address] Garret Curry MD Gastric stenosis (Primary Dx); [...] Recorded Patient Health Questionnaire-2 Score 0 11/04/2024 [facility] of Occupat ional Health - Occupational Stress [...] Sex Assigned at Female 10/08/2024 10:18 AM COMPLAINT INVESTIGATOR Gender Identity Female 10/08/2024 10:18 AM COMPLAINT INVESTIGATOR Sexual Orientation Not on file Last Filed Vital Signs Vital Sign Reading Time Taken Comments Blood Pressure 128/80 11/18/2024 10:06 AM COMPLAINT INVESTIGATOR Pulse 67 11/18/2024 10:06 AM COMPLAINT INVESTIGATOR Temperature 36.4 C (97.5 F) 11/18/2024 10:06 AM COMPLAINT INVESTIGATOR Respiratory Rate 18 11/04/2024 9:53 AM COMPLAINT INVESTIGATOR Oxygen Saturation 100% 11/18/2024 10:06 AM COMPLAINT INVESTIGATOR Inhaled Oxygen Concentration - - Weight 93.9 kg (207 lb) 11/18/2024 10:06 AM COMPLAINT INVESTIGATOR Height 152.4 cm (5') 11/04/2024 9:53 AM COMPLAINT INVESTIGATOR Body Mass Index 40.43 11/04/2024 9:53 AM COMPLAINT INVESTIGATOR Plan of Treatment Upcoming Encounters Date Type Department Care Team (Late st Contact Info) Description 03/04/2025 2:00 PM CDT Documentation [facility] [id number] [place] [address] [address] [place] [address] 03/04/2025 2:20 PM CDT Office Visit [facility] [id number] [place] [address] [address] [place] [address] [place] [address] [place] [address] [address] [place] [address] Health Maintenance Due Date Last [...] APTIMA REFLEX 16,18/45 Routine 11/18/2024 10:44 AM COMPLAINT INVESTIGATOR Well woman exam CBC W AUTO DIFFERENTIAL (CANCER CARE) Routine 11/04/2024 9:46 AM COMPLAINT INVESTIGATOR Anemia, unspecified type IRON + TRANSFERRIN PANEL Routine 11/04/2024 9:46 AM COMPLAINT INVESTIGATOR Anemia, unspecified type VITAMIN B12 FOLATE PANEL Routine 11/04/2024 9:46 AM COMPLAINT INVESTIGATOR Anemia, unspecified type FERRITIN Routine 11/04/2024 9:46 AM COMPLAINT INVESTIGATOR Anemia, unspecified type COMPREHENSIVE METABOLIC PANEL Routine 06/10/2024 11:54 AM CDT Anemia, unspecified type LIPID PROFILE REFLEX LDL DIRECT Routine 06/27/2023 1:47 PM CDT Screening cholesterol level ENDOSCOPY, COLON, SCREENING Routine 02/15/2021 12:11 PM CDT from Last 3 Months or Most Recently Relevant to Health Maintenance Results * PAP IG LB +HPV APTIMA REFLEX 16,18/45 (11/18/2024 10:44 AM COMPLAINT INVESTIGATOR) Diagnosis Comment [facility] ACCOUNT BILL Comment:NEGATIVE FOR INTRAEP ITHELIAL LESION OR MALIGNANCY. Specimen Adequacy Comment [facility] ACCOUNT BILL Comment: Satisfactory for evaluation. Endocervical and/or squamous metaplastic cells (endocervical component) are present. Clinician Provided ICD10 Comment [facility] ACCOUNT BILL Comment:Z01.419 Performed by Comment [facility] ACCOUNT BILL Comment:Guilherme Cheng totechnologist ([facility]) Comment . [facility] ACCOUNT BILL [...] ENTIRE ENDOCERVIX / Unknown 11/18/2024 10:44 AM COMPLAINT INVESTIGATOR 11/18/2024 Comment:Endocrvx Release to p Narrative [facility] ACCOUNT BILL - 11/22/2024 1:06 PM COMPLAINT INVESTIGATOR Performed at: - [facility] [address] [place] [id number] Hearing Specialist: Fortino Fernandez MD, Phone: [phone] Performed at: - [address] [id number] Hearing Specialist: Mitzi Fung MD, Phone: [phone] Performed at: 03 - [address] [id number] Hearing Specialist: Mitzi Fung MD, Phone: [phone] Specimen Comment: [id number] Specimen Comment: Source.............Endocervix Specimen Comment: Other..............Post Menopausal Specimen Comment: No. of containers..01 ThinPrep Vial Gissel Higuera PA-C LAB - PATHOLOGY/CYTO LOGY ORDERABLES [facility] ACCOUNT BILL [address] [place] [address] * (ABNORMAL) CBC W AUTO DIFFERENTIAL (CANCER CARE) (11/04/2024 9:46 AM COMPLAINT INVESTIGATOR) WBC 5.6 4.4 - 10.7 x10E9/L 11/04/2024 9:52 AM COMPLAINT INVESTIGATOR [facility] Neutrophils % 61.3 44.0 - 73.0 % 11/04/2024 9:52 AM COMPLAINT INVESTIGATOR [facility] Lymphocytes % 26.6 20.0 - 43.0 % 11/04/2024 9:52 AM COMPLAINT INVESTIGATOR [facility] Monocytes % 8.7 5.0 - 13.0 % 11/04/2024 9:52 AM COMPLAINT INVESTIGATOR [facility] Eosinophils % 2.9 0.0 - 6.0 % 11/04/2024 9:52 AM COMPLAINT INVESTIGATOR [facility] Basophils % 0.5 0.0 - 2.0 % 11/04/2024 9:52 AM COMPLAINT INVESTIGATOR [facility] Neutrophil Absolute 3.44 2.01 - 7.14 x10E9/L 11/04/2024 9:52 AM COMPLAINT INVESTIGATOR [facility] Lymphocytes Absolute 1.49 1.07 - 3.94 x10E9/L 11/04/2024 9:52 AM COMPLAINT INVESTIGATOR [facility] Monocytes Absolute 0.49 0.26 - 1.07 x10E9/L 11/04/2024 9:52 AM COMPLAINT INVESTIGATOR [facility] Eosinophils Absolute 0.16 0 - 0.47 x10E9/L 11/04/2024 9:52 AM COMPLAINT INVESTIGATOR [facility] Basophils Absolute 0.03 0 - 0.08 x10E9/L 11/04/2024 9:52 AM COMPLAINT INVESTIGATOR [facility] RBC 3.64(L) 3.80 - 5.20 x10E12/L 11/04/2024 9:52 AM COMPLAINT INVESTIGATOR [facility] Hemoglobin 11.1(L) 12.0 - 15.6 gm/dL 11/04/2024 9:52 AM COMPLAINT INVESTIGATOR [facility] Hematocrit 35.5(L) 35.9 - 45.5 % 11/04/2024 9:52 AM COMPLAINT INVESTIGATOR [facility] MCV 97.5 80.7 - 98.3 fl 11/04/2024 9:52 AM COMPLAINT INVESTIGATOR [facility] MCH 30.5 26.7 - 34.0 pg 11/04/2024 9:52 AM [facility] MCHC 31.3 30.8 - 35.9 gm/dL 11/04/2024 9:52 AM [facility] RDW-CV 14.1 12.1 - 14.9 % 11/04/2024 9:52 AM [facility] Platelet Count 235 153 - 416 x10E9/L 11/04/2024 9:52 AM COMPLAINT INVESTIGATOR [facility] MPV 10.8 9.4 - 12.9 fl 11/04/2024 9:52 AM [facility] Blood BLOOD SPECIMEN / Unknown 11/04/2024 9:46 AM COMPLAINT INVESTIGATOR 11/04/2024 9:46 AM COMPLAINT INVESTIGATOR Jm Shafer MD LAB - HEMATOLOGY ORD ERABLES [facility] [address] [address] * (ABNORMAL) VITAMIN B12 FOLATE PANEL (11/04/2024 9:46 AM COMPLAINT INVESTIGATOR) Pathologist [facility] Vitamin B12 >2000(H) 213 - 816 pg/mL [facility] ACCOUNT BILL Folate 14.7 7.0 - 31.4 ng/mL [facility] ACCOUNT BILL Blood BLOOD SPECIMEN / Unknown 11/04/2024 9:46 AM COMPLAINT INVESTIGATOR 11/04/2024 Comment:Blood Release to pat i Narrative [facility] ACCOUNT BILL - 11/04/2024 6:07 PM COMPLAINT INVESTIGATOR Performed at: [address] [place] [id number] [place] [address] [place], [place] [id number] Hearing Specialist: Lele Hartman [facility], Phone: [phone] Jm Shafer MD LAB - CHEMISTRY ORDE RABLES [facility] ACCOUNT BILL [address] [place] [address] * IRON + TRANSFERRIN PANEL (11/04/2024 9:46 AM COMPLAINT INVESTIGATOR) Iron 117 40 - 150 ug/dL [facility] ACCOUNT BILL Transferrin 308 174 - 382 mg/dL [facility] ACCOUNT BILL Comment: TIBC CALCULATED BLOOD ([facility]) 385 ug/dL 240-450 SATURATION % BLOOD ([facility]) 30 % 20-50 Blood BLOOD SPECIMEN / Unknown 11/04/2024 9:46 AM COMPLAINT INVESTIGATOR 11/04/2024 Comment:Blood Release to pat i Narrative [facility] ACCOUNT BILL - 11/04/2024 6:07 PM COMPLAINT INVESTIGATOR Performed at: [address] [place] [id number] Hearing Specialist: Lele Hartman [facility], Phone: [phone] Jm Shafer MD LAB - CHEMISTRY ORDJamin MANUEL Performing Organization Address [facility] Co de Phone Number [facility] ACCOUNT BILL [address] [place] [address] * FERRITIN (11/04/2024 9:46 AM COMPLAINT INVESTIGATOR) Ferritin 132 5 - 204 ng/mL [facility] ACCOUNT BILL Blood BLOOD SPECIMEN / Unknown 11/04/2024 9:46 AM COMPLAINT INVESTIGATOR 11/04/2024 Comment:Blood Release to pat i Narrative [facility] ACCOUNT BILL - 11/04/2024 6:07 PM COMPLAINT INVESTIGATOR Performed at: [place] [address] [place] [id number] Hearing Specialist: Lele Hartman [facility], Phone: [phone] Jm Shafer MD LAB - CHEMISTRY ORDJamin MANUEL [facility] ACCOUNT BILL [address] [place] [address] * (ABNORMAL) COMPREHENSIVE METABOLIC PANEL (06/10/2024 11:54 [...] Resulting Agency Comment Lab Testing performed at: [facility] [id number] [place] [address] [place] [id number] Jm Shafer MD LAB - CHEMISTRY FELISHA MANUEL [facility] ACCOUNT BILL [address] [place] [address] * (ABNORMAL) LIPID PROFILE REFLEX LDL DIRECT [...] Agency Comment Lab Testing performed at: [facility] [address] [facility] [id number] Gissel Higuera PA-C LAB - CHEMISTRY FELISHA MANUEL [facility] ACCOUNT BILL [address] [place] [address] * ENDOSCOPY, COLON, SCREENING (02/15/2021 12:11 PM [...] colon cancer Procedure Code(s): --- Professional --- 97073, Colonoscopy, flexible; with biopsy, single or multiple --- Technical --- 05252, Colonoscopy, flexible; with biopsy, single or multiple Diagnosis Code(s): --- Professional --- K64.8, Other hemorrhoids K52.9, Noninfective gastroenteritis and colitis, unspecified K57.30, Diverticulosis of large intestine without perforation or abscess without bleeding --- Technical --- K64.8, Other hemorrhoids K52.9, Noninfective gastroenteritis and colitis, unspecified K57.30, Diverticulosis of large intestine without perforation or abscess without bleeding CPT copyright 2019 [employer]. All rights reserved. The codes documented in this report are preliminary and upon resource agent review may be revised to meet current compliance requirements. Dr. Lory Narvaez MD Camille Narvaez MD 02/15/2021 1:43:26 PM Number of Addenda: 0 Note Initiated On: 02/15/2021 12:11 PM [facility] 02/15/2021 12:1 1 PM CDT Camille Narvaez MD GI PROCEDURE ORDERAB LES [facility] [place] [address] from Last 3 Months or Most Recently Relevant to Health Maintenance Advance Directives * Full Code (Latest Code Status on File) Date Activated Date Inactivated Comments 01/21/2024 9:45 AM 01/22/2024 7:35 PM * Full Code Date Activated Date Inactivated Comments 05/30/2020 12:34 PM 06/01/2020 2:33 PM Care Teams Draw Press Operator Relationship Specialty Start Date End Date Johnna Abbott MD [address] [facility] [address] [place] [address] PCP - General Family Medicine 11/20/23 Camille Narvaez MD Glass Blowing Lathe Operator Gastroenterology 01/03/22 [place] [address] [facility] [address] [place] [address] General Surgery 05/18/24 [place] [address] [place] [phone] Brass Polisher/Oncologist Hematology and Oncology 06/10/24
--- OUTSIDE RECORDS SUMMARY | 2024-12-15 02:55 | XMS_ITS | Encounter Summary ---
Author Organization [facility] Address [address] [place] [address] Care Team Providers Care Home Appliance Installer Name Role Phone Camille Narvaez MD Unavailable [phone] Johnna Abbott MD Primary Care Provider [phone] Garret Curry MD Unavailable [phone] Jm Shafer MD Unavailable [phone] Reason for Visit * Reason Onset Date Comments Pre Authorization 11/30/2024 Katlyn hhr w/tramaine is gasatroplasty Encounter Details Date Type Department Care Team (Late st Contact Info) Description 11/30/2024 Telephone [facility] Weight Management Services [address] [place] [address] [place] [address] [address] Pre Authorization (Katlyn jerezr w/lynda [...] Recorded Patient Health Questionnaire-2 Score 0 11/04/2024 [facility] of Occupat ional Health - Occupational Stress [...] place to sleep or slept in a senior care (including now)? No 01/21/2024 Sex and Gender Information Value Date Recorded Sex Assigned at Female 10/08/2024 10:18 AM LAMINATOR PREFORMS Gender Identity Female 10/08/2024 10:18 AM LAMINATOR PREFORMS Sexual Orientation Not on file documented as [...] Mercado - 12/14/2024 7:04 AM CST Per [facility] online pending auth#[id number] for inpatient Cpt-70631,[id number] has been approved. Per Epic Chat from Dr. Curry patient is to be on 5 day liquid diet before Laparoscopic repair of hiatal hernia with fundoplication and lynda gastroplasty Sent to RN to schedule. NATOR PREFORMS * Telephone Encounter - Delaney Mercado - 11/30/2024 9:34 AM CST Dummy Sx Date : 12/31/24 Prior Authorization for Cpt-[id number] Laparoscopic repair of hiatal hernia with fundoplication and lynda gastroplasty Dx: K44.9 Hiatal Hernia K21.9 Medically refractory GERD K20.80 L A Grade Esophagitis K31.89 Gastric stenosis R13.10 Dysphagia R12 Heartburn K29.70 Gastritis Provider: Dr. Garret Curry Hospital: [facility], Inpatient Insurance Name: [facility] Insurance Group #: [id number] Auth Phone #: [phone] Insurance Rep you spoke to: [facility] Online Pending Auth/Reference #: [id number] Clinicals: Uploaded. Upload confirmation received. NATOR PREFORMS documented in this encounter Plan of Treatment Upcoming Encounters Date Type Department Care Team (Late st Contact Info) Description 03/04/2025 2:00 PM CDT Documentation [address] [address] 03/04/2025 2:20 PM CDT Office Visit [address] [phone] [place] [address] [facility] [address] [place] [phone] documented as of this encounter Visit Diagnoses Not on filedocumented in this encounter Care Teams Home Appliance Installer Relationship Specialty Start Date End Date Johnna Abbott MD [address] [facility] [address] [place] [address] PCP - General Family Medicine 11/20/23 Camille Narvaez MD Special Certificate Dictator Gastroenterology 01/03/22 [place] [address] [facility] [address] [place] [address] General Surgery 05/18/24 [place] [address] [facility] [address] [place] [address] Rn Post Partum/Oncologist Hematology and Oncology 06/10/24 documented as of this encounter
== END 2024-12-15 02:47 | disposition left against medical advice (07) ==
PROVIDERS: PCP Family Medicine Adolescent Medicine
DX: R53.1 Weakness (principal)
CPT/HCPCS: 99199